=== PATIENT | female | born 1955 | race American Indian/Alaskan Native ===

== ENCOUNTER 2018-04-02 10:50 | Inpatient (IN) | payer MEDICARE ==
[2018-04-02] MEDS ORDERED: PROVENTIL IH ONE ×2 (10:58→11:56)
[2018-04-02] MEDS ORDERED: ATROVENT IH ONE (10:58)
[2018-04-02 11:35] LABS: Basophils % (Auto) 0.6 % (0.0-1.8); Eosinophils # (Auto) 0.2 K/mm3 (0.0-0.4); Eosinophils % (Auto) 3.6 % (0.0-4.3); Hematocrit 39.7 % (30.3-42.9); Hemoglobin 13.7 gm/dl (10.1-14.3); Lymphocytes # (Auto) 1.7 K/mm3 (1.2-5.4); Lymphocytes % (Auto) 24.9 % (13.4-35.0); Mean Corpuscular HGB Conc 35 % (30-34); Mean Corpuscular Volume 89 fl (79-97); Monocytes # (Auto) 0.8 K/mm3 (0.0-0.8); Monocytes % (Auto) 11.5 % (0.0-7.3); Platelet Count 196 K/mm3 (140-440); Red Blood Count 4.47 M/mm3 (3.65-5.03); Red Cell Distribution Width 14.5 % (13.2-15.2)
--- NOTE | 2018-04-02 11:37 | XRay Report ---
AP CHEST: HISTORY: Dyspnea The lungs are mildly hyperinflated. No evidence for pneumonia, pleural fluid or pneumothorax. Normal heart and mediastinal structures. Normal bony thorax. IMPRESSION: Hyperinflated lungs. Correlate for history of smoking. No acute process noted.
[2018-04-02 11:40] LABS: Creatine Kinase MB 3.1 ng/mL (0.0-4.0)
[2018-04-02 11:41] LABS: Alanine Aminotransferase 36 units/L (7-56); Albumin 3.7 g/dL (3.9-5); BUN/Creatinine Ratio 18; Blood Urea Nitrogen 11 mg/dL (7-17); Calcium 8.7 mg/dL (8.4-10.2); Hemolysis Index 11
[2018-04-02] MEDS ORDERED: K-DUR PO ONE (11:50)
[2018-04-02] MEDS ORDERED: TESSALON PERLES PO ONE (11:55)
[2018-04-02] MEDS ORDERED: NORCO 5/325 PO ONE (11:55)
[2018-04-02 11:56] LABS: INR 0.9 (0.87-1.13); Partial Thromboplastin Time 32.1 Sec. (24.2-36.6)
--- NOTE | 2018-04-02 12:05 | Emergency Department Report ---
ED Shortness of Breath HPI - General Chief Complaint: Dyspnea/Respdistress Stated Complaint: ROBERT Time Seen by Provider: 04/02/18 11:01 Source: patient, EMS, old records reviewed (no previous medical records available for review) Mode of arrival: Stretcher Limitations: No Limitations - History of Present Illness Initial Comments: 62-year-old female with a past medical history bronchitis, COPD with home oxygen use, asthma, and hepatitis B presents to the hospital with complaints of shortness of breath and wheezing 3 days. She complains of cough productive of yellow sputum and generalized body aches rated moderate to severe in intensity. She denies fever, calf tenderness, or leg edema. Patient takes home oxygen when necessary but states she has not had any oxygen in the last 2 days because she has been at her son's house. She also states she is trying to cut down on smoking which states multiple family members continue to smoke cigarettes around her. She received magnesium 2 g, Solu-Medrol 125 mg, and albuterol 5 mg in route to the hospital with minimal improvement. At time of my evaluation patient continued in our diffuse of albuterol 10 mg and Atrovent 1 mg and continues to have respiratory distress, chest muscle use, a can wheezing. BiPAP ordered. She denies a history of previous intubations. - Related Data Allergies Allergy/AdvReac Type Severity Reaction Status Date / Time aspirin Allergy Unknown Verified 04/02/18 10:58 tramadol Allergy Unknown Verified 04/02/18 10:58 ED Review of Systems ROS: Stated complaint: ROBERT Other details as noted in HPI Comment: All other systems reviewed and negative ED Past Medical Hx - Past Medical History Hx Liver Disease: Yes (Hep B) Hx Arthritis: Yes Hx Asthma: Yes Hx COPD: Yes - Social History Smoking Status: Current Some Day Smoker Substance Use Type: None ED Physical Exam - General Limitations: No Limitations - Other Other exam information: General: No limitations, patient is alert in no acute distress Head exam: Atraumatic, normocephalic Eyes exam: Normal appearance ENT: Moist mucous membrane, normal oropharynx Neck exam: Normal inspection, full range of motion, no meningismus nontender Respiratory exam: Bilateral wheezing, excessive muscle use, tachypnea Cardiovascular: Mild tachycardia, regular rhythm Abdomen: Soft, nondistended, and nontender, with normal bowel sounds, no rebound, or guarding Extremity: Full range of motion normal inspection no deformity, no calf tenderness or edema Back: Normal Inspection, full range of motion, no tenderness Neurologic: Alert, oriented x3, cranial nerves intact, no motor or sensory deficit Psychiatric: normal affect, normal mood Skin: Warm, dry, intact ED Course Vital Signs 04/02/18 11:01 Temperature 98.9 F Pulse Rate 102 H Respiratory 32 H Rate Blood Pressure 158/94 O2 Sat by Pulse 91 Oximetry - Reevaluation(s) Reevaluation #1: 04/02/18 11:57 Patient completed multiple doses of nebs, Solu-Medrol, echocardiogram prior to my evaluation. Still with respiratory distress, wheezing, tachypnea, and accessory muscle use. BiPAP at additional nebs ordered. ED Medical Decision Making - Lab Data Result diagrams: 04/02/18 11:10 04/02/18 11:10 Lab Results 04/02/18 04/02/18 04/02/18 Range/Units 11:10 11:10 11:10 WBC 6.9 (4.5-11.0) K/mm3 RBC 4.47 (3.65-5.03) M/mm3 Hgb 13.7 (10.1-14.3) gm/dl Hct 39.7 (30.3-42.9) % MCV 89 (79-97) fl MCH 31 (28-32) pg MCHC 35 H (30-34) % RDW 14.5 (13.2-15.2) % Plt Count 196 (140-440) K/mm3 Lymph % (Auto) 24.9 (13.4-35.0) % [place] % (Auto) 11.5 H (0.0-7.3) % Eos % (Auto) 3.6 (0.0-4.3) % Baso % (Auto) 0.6 (0.0-1.8) % Lymph # 1.7 (1.2-5.4) K/mm3 [place] # 0.8 (0.0-0.8) K/mm3 Eos # 0.2 (0.0-0.4) K/mm3 Baso # 0.0 (0.0-0.1) K/mm3 Seg Neutrophils % 59.4 (40.0-70.0) % Seg Neutrophils # 4.1 (1.8-7.7) K/mm3 PT 12.5 (12.2-14.9) Sec. INR 0.90 (0.87-1.13) APTT 32.1 (24.2-36.6) Sec. Sodium (137-145) mmol/L Potassium (3.6-5.0) mmol/L Chloride (98-107) mmol/L Carbon Dioxide (22-30) mmol/L Anion Gap mmol/L BUN (7-17) mg/dL Creatinine (0.7-1.2) mg/dL Estimated GFR ml/min BUN/Creatinine Ratio % Glucose (65-100) mg/dL Calcium (8.4-10.2) mg/dL Total Bilirubin (0.1-1.2) mg/dL AST (5-40) units/L ALT (7-56) units/L Alkaline Phosphatase (35-129) units/L Total Creatine Kinase 113 (30-135) units/L CK-MB (CK-2) 3.1 (0.0-4.0) ng/mL CK-MB (CK-2) Rel Index 2.7 (0-4) Troponin T < 0.010 (0.00-0.029) ng/mL Total Protein (6.3-8.2) g/dL Albumin (3.9-5) g/dL Albumin/Globulin Ratio % 04/02/18 Range/Units 11:10 WBC (4.5-11.0) K/mm3 RBC (3.65-5.03) M/mm3 Hgb (10.1-14.3) gm/dl Hct (30.3-42.9) % MCV (79-97) fl MCH (28-32) pg MCHC (30-34) % RDW (13.2-15.2) % Plt Count (140-440) K/mm3 Lymph % (Auto) (13.4-35.0) % [place] % (Auto) (0.0-7.3) % Eos % (Auto) (0.0-4.3) % Baso % (Auto) (0.0-1.8) % Lymph # (1.2-5.4) K/mm3 [place] # (0.0-0.8) K/mm3 Eos # (0.0-0.4) K/mm3 Baso # (0.0-0.1) K/mm3 Seg Neutrophils % (40.0-70.0) % Seg Neutrophils # (1.8-7.7) K/mm3 PT (12.2-14.9) Sec. INR (0.87-1.13) APTT (24.2-36.6) Sec. Sodium 141 (137-145) mmol/L Potassium 3.3 L (3.6-5.0) mmol/L Chloride 106.0 (98-107) mmol/L Carbon Dioxide 20 L (22-30) mmol/L Anion Gap 18 mmol/L BUN 11 (7-17) mg/dL Creatinine 0.6 L (0.7-1.2) mg/dL Estimated GFR > 60 ml/min BUN/Creatinine Ratio 18 % Glucose 132 H (65-100) mg/dL Calcium 8.7 (8.4-10.2) mg/dL Total Bilirubin 0.60 (0.1-1.2) mg/dL AST 48 H (5-40) units/L ALT 36 (7-56) units/L Alkaline Phosphatase 75 (35-129) units/L Total Creatine Kinase (30-135) units/L CK-MB (CK-2) (0.0-4.0) ng/mL CK-MB (CK-2) Rel Index (0-4) Troponin T (0.00-0.029) ng/mL Total Protein 7.2 (6.3-8.2) g/dL Albumin 3.7 L (3.9-5) g/dL Albumin/Globulin Ratio 1.1 % - EKG Data -: EKG Interpreted by Me (michi) EKG shows normal: sinus rhythm, axis (qrs 98), QRS complexes (qrsd -47), ST-T waves (no STEMI) - Radiology Data Radiology results: report reviewed AP CHEST: HISTORY: Dyspnea The lungs are mildly hyperinflated. No evidence for pneumonia, pleural fluid or pneumothorax. Normal heart and mediastinal structures. Normal bony thorax. IMPRESSION: Hyperinflated lungs. Correlate for history of smoking. No acute process noted. - Medical Decision Making Patient treated with albuterol, Atrovent, and BiPAP in the ED. [place] provided for pain. By mouth potassium for mild hypokalemia. Patient will be admitted to the Hospitalist service for further treatment. - Differential Diagnosis COPD, pneumonia, CHF, bronchitis Critical Care Time: No Critical care attestation.: If time is entered above; I have spent that time in minutes in the direct care of this critically ill patient, excluding procedure time. ED Disposition Clinical Impression: COPD with acute exacerbation, Hypoxia, On home O2, Hypokalemia Disposition: OP ADMIT IP TO THIS HOSP Is pt being admited?: Yes Condition: Stable Referrals: JERRY CORMIER DO [Primary Care Provider] - 3-5 Days Time of Disposition: 12:08 (Dr Moreland/hosp)
[2018-04-02] MEDS ORDERED: SODIUM CHLORIDE FLUSH SYRINGE 10 ML IV PRN (12:21)
[2018-04-02] MEDS ORDERED: TYLENOL PO PRN (12:21)
[2018-04-02] MEDS ORDERED: ZOFRAN IV PRN (12:21)
--- NOTE | 2018-04-02 12:21 | History and Physical Report ---
History of Present Illness Chief complaint: I cant breathe History of present illness: 62 YO Female with HBV, OA, Asthma, COPD, Nicotine Dependence presents to ED for evaluation. Pt states that she has experienced shortness of breath over the past 3 days with worsening symptoms over the same time frame. Pt acknowledges increased productive cough productive of yellow sputum, wheezing, increased use of nebulizer therapy without relief. EMS notified, and upon arrival the patient was found to have respiratory distress. Pt transported to [facility] for further care and evaluation. Pt seen and evaluated in ED and found to have COPD Exacerbation, complicated by Respiratory failure. Pt initiated on NIPPV. Pt admitted to IMCU and treated with IV antibiotic and IV steroid therapy. Pt denies fever, chills, CP, Palpitations, NVD, Trauma, Skin rash, or recent ill contacts. Past History Past Medical History: arthritis, COPD Past Surgical History: No surgical history Social history: Family history: hypertension Medications and Allergies Allergies Allergy/AdvReac Type Severity Reaction Status Date / Time aspirin Allergy Unknown Verified 04/02/18 10:58 tramadol Allergy Unknown Verified 04/02/18 10:58 Home Medications Medication Instructions Recorded Confirmed Last Taken Type Albuterol Sulfate [Ventolin HFA] 2 puff IH Q4H PRN 04/02/18 04/02/18 Unknown History Review of Systems Constitutional: no weight loss, no weight gain, no fever, no chills Ears, nose, mouth and throat: no ear pain, no ear discharge, no tinnitis, no decreased hearing, no nose pain Breasts: no change in shape, no swelling, no mass Cardiovascular: no chest pain, no orthopnea, no palpitations, no rapid/irregular heart beat, no edema Respiratory: cough, cough with sputum, excessive sputum, shortness of breath, congestion, no hemoptysis Gastrointestinal: no nausea, no vomiting, no diarrhea, no constipation, no change in bowel habits Genitourinary Female: no pelvic pain, no flank pain, no menorrhagia, no dysuria, no urinary frequency, no urgency, no stress incontinence Rectal: no pain, no incontinence, no bleeding Musculoskeletal: no neck stiffness, no neck pain, no shooting arm pain, no low back pain, no shooting leg pain, no leg numbness/tingling Integumentary: no rash, no pruritis, no redness, no sores, no wounds Neurological: no head injury, no transient paralysis, no paralysis, no weakness, no parathesias, no seizures Psychiatric: no anxiety, no change in sleep habits, no insomnia, no change in libido, no depression, no anhedonia, no difficulties concentrating Exam - Constitutional Vitals: Temp Pulse Resp BP Pulse Ox 98.9 F 102 H 32 H 158/94 91 04/02/18 11:01 04/02/18 11:01 04/02/18 11:01 04/02/18 11:04/02/18 11:01 General appearance: Present: mild distress - EENT Eyes: Present: PERRL ENT: hearing intact, clear oral mucosa - Neck Neck: Present: supple, normal ROM - Respiratory Respiratory effort: labored, accessory muscle use Respiratory: bilateral: diminished, rhonchi - Cardiovascular Heart Sounds: Present: S1 & S2. Absent: rub, click - Extremities Extremities: pulses symmetrical, No edema Peripheral Pulses: within normal limits - Abdominal General gastrointestinal: Present: soft, non-tender, non-distended, normal bowel sounds Female genitourinary: Present: normal - Integumentary Integumentary: Present: clear, warm, dry - Musculoskeletal Musculoskeletal: generalized weakness - Psychiatric Psychiatric: appropriate mood/affect, intact judgment & insight - Neurologic Neurologic: CNII-XII intact, moves all extremities Results - Labs CBC & Chem 7: 04/02/18 11:10 04/02/18 11:10 Labs: Abnormal lab results 04/02/18 04/02/18 Range/Units 11:10 11:10 MCHC 35 H (30-34) % [place] % (Auto) 11.5 H (0.0-7.3) % Potassium 3.3 L (3.6-5.0) mmol/L Carbon Dioxide 20 L (22-30) mmol/L Creatinine 0.6 L (0.7-1.2) mg/dL Glucose 132 H (65-100) mg/dL AST 48 H (5-40) units/L Albumin 3.7 L (3.9-5) g/dL Assessment and Plan - Patient Problems (1) Acute respiratory failure Current Visit: Yes Status: Acute Qualifiers: Respiratory failure complication: hypoxia Qualified Code(s): J96.01 - Acute respiratory failure with hypoxia Plan to address problem: Admit to IMCU, supplemental oxygen , nebulizer therapy, NIPPV as clinically indicated, chest x ray, pulse oximetry, (2) Nicotine dependence unspecified, with withdrawal Current Visit: Yes Status: Acute Qualifiers: Nicotine product type: cigarettes Qualified Code(s): F17.213 - Nicotine dependence, cigarettes, with withdrawal Plan to address problem: smoking cessation counseling, supportive care. (3) COPD with acute exacerbation Current Visit: Yes Status: Acute Plan to address problem: IV antibiotic therapy, IV steroid therapy, supplemental oxygen, nebulizer therapy, NIPPV as clinically indicated (4) DVT prophylaxis Current Visit: Yes Status: Acute Plan to address problem: SCD to BLE while in bed.
[2018-04-02] MEDS: ZITHROMAX 500 MG in NACL 0.9% 250ML 250 ML IV SCH (14:53)
[2018-04-02] MEDS: PERCOCET 5/325 PO PRN (16:33)
[2018-04-02] MEDS: PROVENTIL IH PRN (18:16)
[2018-04-02] MEDS ORDERED: APRESOLINE IV PRN (20:30)
[2018-04-02] MEDS: ATIVAN IV PRN (21:00)
[2018-04-02] MEDS: SODIUM CHLORIDE FLUSH SYRINGE 10 ML IV SCH (21:01)
[2018-04-02] MEDS: SOLU-Medrol IV SCH (21:01)
[2018-04-03] MEDS: PERCOCET 5/325 PO PRN ×3 (05:04→17:50)
[2018-04-03] MEDS: ATIVAN IV PRN (05:05)
[2018-04-03 05:07] LABS: BUN/Creatinine Ratio 20; Blood Urea Nitrogen 12 mg/dL (7-17); Calcium 9.1 mg/dL (8.4-10.2); Hemolysis Index 0
[2018-04-03] MEDS: SOLU-Medrol IV SCH ×2 (10:08→23:08)
[2018-04-03] MEDS: SODIUM CHLORIDE FLUSH SYRINGE 10 ML IV SCH ×2 (10:09→21:52)
[2018-04-03] MEDS: ZITHROMAX 500 MG in NACL 0.9% 250ML 250 ML IV SCH (10:17)
--- NOTE | 2018-04-03 12:29 | Progress Note ---
Assessment and Plan Assessment and plan: Acute hypoxemic respiratory failure. Continue O2 and BiPAP as clinically indicated. Acute COPD exacerbation. Continue systemic and inhaled steroids. Bronchodilators/nebulizer treatments. Tobacco abuse. Patient will be counseled on smoking cessation. DVT prophylaxis. History Interval history: 62 YO Female with HBV, OA, Asthma, COPD, Nicotine Dependence presents to ED for evaluation. Pt states that she has experienced shortness of breath over the past 3 days with worsening symptoms over the same time frame. Pt acknowledges increased productive cough productive of yellow sputum, wheezing, increased use of nebulizer therapy without relief. EMS notified, and upon arrival the patient was found to have respiratory distress. Pt transported to [facility] for further care and evaluation. Pt seen and evaluated in ED and found to have COPD Exacerbation, complicated by Respiratory failure. Pt initiated on NIPPV. Pt admitted to IMCU and treated with IV antibiotic and IV steroid therapy. Hospitalist Physical - Constitutional Vitals: Temp Pulse Resp BP Pulse Ox 98.4 F 87 33 H 131/98 98 04/03/18 04:00 04/03/18 08:35 04/03/18 08:35 04/03/18 08:35 04/03/18 09:02 General appearance: Present: mild distress - EENT Eyes: Present: PERRL, EOM intact ENT: hearing intact, clear oral mucosa, dentition normal - Neck Neck: Present: supple, normal ROM - Respiratory Respiratory effort: normal Respiratory: bilateral: diminished, wheezing - Cardiovascular Rhythm: regular Heart Sounds: Present: S1 & S2. Absent: gallop, rub - Extremities Extremities: no ischemia, No edema, Full ROM - Abdominal General gastrointestinal: soft, non-tender, non-distended, normal bowel sounds - Integumentary Integumentary: Present: clear, warm, dry - Neurologic Neurologic: CNII-XII intact, moves all extremities Results - Labs CBC & Chem 7: 04/02/18 11:10 04/03/18 04:30 Labs: Laboratory Last Values WBC 6.9 K/mm3 (4.5-11.0) 04/02/18 11:10 RBC 4.47 M/mm3 (3.65-5.03) 04/02/18 11:10 Hgb 13.7 gm/dl (10.1-14.3) 04/02/18 11:10 Hct 39.7 % (30.3-42.9) 04/02/18 11:10 MCV 89 fl (79-97) 04/02/18 11:10 MCH 31 pg (28-32) 04/02/18 11:10 MCHC 35 % (30-34) H 04/02/18 11:10 RDW 14.5 % (13.2-15.2) 04/02/18 11:10 Plt Count 196 K/mm3 (140-440) 04/02/18 11:10 Lymph % (Auto) 24.9 % (13.4-35.0) 04/02/18 11:10 [place] % (Auto) 11.5 % (0.0-7.3) H 04/02/18 11:10 Eos % (Auto) 3.6 % (0.0-4.3) 04/02/18 11:10 Baso % (Auto) 0.6 % (0.0-1.8) 04/02/18 11:10 Lymph # 1.7 K/mm3 (1.2-5.4) 04/02/18 11:10 [place] # 0.8 K/mm3 (0.0-0.8) 04/02/18 11:10 Eos # 0.2 K/mm3 (0.0-0.4) 04/02/18 11:10 Baso # 0.0 K/mm3 (0.0-0.1) 04/02/18 11:10 Seg Neutrophils % 59.4 % (40.0-70.0) 04/02/18 11:10 Seg Neutrophils # 4.1 K/mm3 (1.8-7.7) 04/02/18 11:10 PT 12.5 Sec. (12.2-14.9) 04/02/18 11:10 INR 0.90 (0.87-1.13) 04/02/18 11:10 APTT 32.1 Sec. (24.2-36.6) 04/02/18 11:10 POC ABG pH 7.352 (7.35-7.45) 04/02/18 14:20 POC ABG pCO2 38.1 (35-45) 04/02/18 14:20 POC ABG pO2 101 (80-105) 04/02/18 14:20 POC ABG HCO3 21.1 04/02/18 14:20 POC ABG Total CO2 22 04/02/18 14:20 POC ABG O2 Sat 98 04/02/18 14:20 POC ABG Base Excess -4 04/02/18 14:20 FiO2 40 % 04/02/18 14:20 Sodium 138 mmol/L (137-145) 04/03/18 04:30 Potassium 3.9 mmol/L (3.6-5.0) 04/03/18 04:30 Chloride 101.2 mmol/L (98-107) 04/03/18 04:30 Carbon Dioxide 23 mmol/L (22-30) 04/03/18 04:30 Anion Gap 18 mmol/L 04/03/18 04:30 BUN 12 mg/dL (7-17) 04/03/18 04:30 Creatinine 0.6 mg/dL (0.7-1.2) L 04/03/18 04:30 Estimated GFR > 60 ml/min 04/03/18 04:30 BUN/Creatinine Ratio 20 % 04/03/18 04:30 Glucose 136 mg/dL (65-100) H 04/03/18 04:30 Calcium 9.1 mg/dL (8.4-10.2) 04/03/18 04:30 Total Bilirubin 0.60 mg/dL (0.1-1.2) 04/02/18 11:10 AST 48 units/L (5-40) H 04/02/18 11:10 ALT 36 units/L (7-56) 04/02/18 11:10 Alkaline Phosphatase 75 units/L (35-129) 04/02/18 11:10 Total Creatine Kinase 113 units/L (30-135) 04/02/18 11:10 CK-MB (CK-2) 3.1 ng/mL (0.0-4.0) 04/02/18 11:10 CK-MB (CK-2) Rel Index 2.7 (0-4) 04/02/18 11:10 Troponin T < 0.010 ng/mL (0.00-0.029) 04/02/18 11:10 Total Protein 7.2 g/dL (6.3-8.2) 04/02/18 11:10 Albumin 3.7 g/dL (3.9-5) L 04/02/18 11:10 Albumin/Globulin Ratio 1.1 % 04/02/18 11:10
[2018-04-03] MEDS ORDERED: MORPHINE IV ONE (21:10)
[2018-04-04] MEDS: PERCOCET 5/325 PO PRN ×3 (06:26→20:56)
[2018-04-04] MEDS: PROVENTIL IH PRN ×3 (06:41→08:04)
[2018-04-04] MEDS: ROBITUSSIN PO PRN ×3 (07:52→20:55)
[2018-04-04] MEDS: SOLU-Medrol IV SCH ×2 (09:45→21:20)
[2018-04-04] MEDS: ZITHROMAX 500 MG in NACL 0.9% 250ML 250 ML IV SCH (09:45)
[2018-04-04] MEDS: SODIUM CHLORIDE FLUSH SYRINGE 10 ML IV SCH ×2 (09:47→21:20)
[2018-04-04] MEDS: ATIVAN IV PRN (10:13)
--- NOTE | 2018-04-04 10:55 | Progress Note ---
Assessment and Plan Assessment and plan: Acute hypoxemic respiratory failure. Continue O2 and BiPAP as clinically indicated. Serial CXR Acute COPD exacerbation. Continue systemic and inhaled steroids. Bronchodilators/nebulizer treatments. Tobacco abuse. Patient will be counseled on smoking cessation. DVT prophylaxis. History Interval history: 62 YO Female with HBV, OA, Asthma, COPD, Nicotine Dependence presents to ED for evaluation. Pt states that she has experienced shortness of breath over the past 3 days with worsening symptoms over the same time frame. Pt acknowledges increased productive cough productive of yellow sputum, wheezing, increased use of nebulizer therapy without relief. EMS notified, and upon arrival the patient was found to have respiratory distress. Pt transported to [facility] for further care and evaluation. Pt seen and evaluated in ED and found to have COPD Exacerbation, complicated by Respiratory failure. Pt initiated on NIPPV. Pt admitted to IM and treated with IV antibiotic and IV steroid therapy. Hospitalist Physical - Constitutional Vitals: Temp Pulse Resp BP Pulse Ox 98.4 F 108 H 26 H 131/97 96 04/03/18 16:00 04/04/18 08:11 04/04/18 08:11 04/03/18 16:00 04/04/18 08:49 General appearance: Present: no acute distress - EENT Eyes: Present: PERRL, EOM intact ENT: hearing intact, clear oral mucosa, dentition normal - Neck Neck: Present: supple, normal ROM - Respiratory Respiratory effort: normal Respiratory: bilateral: CTA - Cardiovascular Rhythm: regular Heart Sounds: Present: S1 & S2. Absent: gallop, rub - Extremities Extremities: no ischemia, No edema, Full ROM - Abdominal General gastrointestinal: soft, non-tender, non-distended, normal bowel sounds - Integumentary Integumentary: Present: clear, warm, dry - Neurologic Neurologic: CNII-XII intact, moves all extremities Results - Labs CBC & Chem 7: 04/02/18 11:10 04/03/18 04:30 Labs: Laboratory Last Values WBC 6.9 K/mm3 (4.5-11.0) 04/02/18 11:10 RBC 4.47 M/mm3 (3.65-5.03) 04/02/18 11:10 Hgb 13.7 gm/dl (10.1-14.3) 04/02/18 11:10 Hct 39.7 % (30.3-42.9) 04/02/18 11:10 MCV 89 fl (79-97) 04/02/18 11:10 MCH 31 pg (28-32) 04/02/18 11:10 MCHC 35 % (30-34) H 04/02/18 11:10 RDW 14.5 % (13.2-15.2) 04/02/18 11:10 Plt Count 196 K/mm3 (140-440) 04/02/18 11:10 Lymph % (Auto) 24.9 % (13.4-35.0) 04/02/18 11:10 [place] % (Auto) 11.5 % (0.0-7.3) H 04/02/18 11:10 Eos % (Auto) 3.6 % (0.0-4.3) 04/02/18 11:10 Baso % (Auto) 0.6 % (0.0-1.8) 04/02/18 11:10 Lymph # 1.7 K/mm3 (1.2-5.4) 04/02/18 11:10 [place] # 0.8 K/mm3 (0.0-0.8) 04/02/18 11:10 Eos # 0.2 K/mm3 (0.0-0.4) 04/02/18 11:10 Baso # 0.0 K/mm3 (0.0-0.1) 04/02/18 11:10 Seg Neutrophils % 59.4 % (40.0-70.0) 04/02/18 11:10 Seg Neutrophils # 4.1 K/mm3 (1.8-7.7) 04/02/18 11:10 PT 12.5 Sec. (12.2-14.9) 04/02/18 11:10 INR 0.90 (0.87-1.13) 04/02/18 11:10 APTT 32.1 Sec. (24.2-36.6) 04/02/18 11:10 POC ABG pH 7.352 (7.35-7.45) 04/02/18 14:20 POC ABG pCO2 38.1 (35-45) 04/02/18 14:20 POC ABG pO2 101 (80-105) 04/02/18 14:20 POC ABG HCO3 21.1 04/02/18 14:20 POC ABG Total CO2 22 04/02/18 14:20 POC ABG O2 Sat 98 04/02/18 14:20 POC ABG Base Excess -4 04/02/18 14:20 FiO2 40 % 04/02/18 14:20 Sodium 138 mmol/L (137-145) 04/03/18 04:30 Potassium 3.9 mmol/L (3.6-5.0) 04/03/18 04:30 Chloride 101.2 mmol/L (98-107) 04/03/18 04:30 Carbon Dioxide 23 mmol/L (22-30) 04/03/18 04:30 Anion Gap 18 mmol/L 04/03/18 04:30 BUN 12 mg/dL (7-17) 04/03/18 04:30 Creatinine 0.6 mg/dL (0.7-1.2) L 04/03/18 04:30 Estimated GFR > 60 ml/min 04/03/18 04:30 BUN/Creatinine Ratio 20 % 04/03/18 04:30 Glucose 136 mg/dL (65-100) H 04/03/18 04:30 Calcium 9.1 mg/dL (8.4-10.2) 04/03/18 04:30 Total Bilirubin 0.60 mg/dL (0.1-1.2) 04/02/18 11:10 AST 48 units/L (5-40) H 04/02/18 11:10 ALT 36 units/L (7-56) 04/02/18 11:10 Alkaline Phosphatase 75 units/L (35-129) 04/02/18 11:10 Total Creatine Kinase 113 units/L (30-135) 04/02/18 11:10 CK-MB (CK-2) 3.1 ng/mL (0.0-4.0) 04/02/18 11:10 CK-MB (CK-2) Rel Index 2.7 (0-4) 04/02/18 11:10 Troponin T < 0.010 ng/mL (0.00-0.029) 04/02/18 11:10 Total Protein 7.2 g/dL (6.3-8.2) 04/02/18 11:10 Albumin 3.7 g/dL (3.9-5) L 04/02/18 11:10 Albumin/Globulin Ratio 1.1 % 04/02/18 11:10
[2018-04-05] MEDS: PROVENTIL IH PRN (03:21)
[2018-04-05] MEDS: ROBITUSSIN PO PRN ×4 (03:22→22:38)
[2018-04-05] MEDS: ATIVAN IV PRN ×2 (03:27→22:38)
[2018-04-05] MEDS: PERCOCET 5/325 PO PRN ×3 (07:50→22:37)
--- NOTE | 2018-04-05 09:26 | XRay Report ---
FINAL REPORT EXAM: XR CHEST ROUTINE 2V HISTORY: resp failure TECHNIQUE: PA and lateral chest radiographs PRIORS: None. FINDINGS: No mediastinal shift. Cardiac silhouette is not enlarged. Hyperaeration of the lungs and flattening o f the hemidiaphragms. No pneumothorax, effusion, or focal pulmonary opacity. No acute skeletal findin g. IMPRESSION: Suggested sequela of COPD without pneumothorax or other superimposed acute pulmonary abnormality.
[2018-04-05] MEDS: ZITHROMAX PO SCH (10:14)
[2018-04-05] MEDS: SODIUM CHLORIDE FLUSH SYRINGE 10 ML IV SCH ×2 (10:14→22:38)
[2018-04-05] MEDS: SOLU-Medrol IV SCH ×2 (10:14→22:38)
--- NOTE | 2018-04-05 11:21 | Progress Note ---
Assessment and Plan Assessment and plan: Acute hypoxemic respiratory failure. Continue O2 and BiPAP as clinically indicated. Acute COPD exacerbation. Continue systemic and inhaled steroids. Bronchodilators/nebulizer treatments. Tobacco abuse. Patient will be counseled on smoking cessation. Cough. Mucinex. DVT prophylaxis. History Interval history: 62 YO Female with HBV, OA, Asthma, COPD, Nicotine Dependence presents to ED for evaluation. Pt states that she has experienced shortness of breath over the past 3 days with worsening symptoms over the same time frame. Pt acknowledges increased productive cough productive of yellow sputum, wheezing, increased use of nebulizer therapy without relief. EMS notified, and upon arrival the patient was found to have respiratory distress. Pt transported to [facility] for further care and evaluation. Pt seen and evaluated in ED and found to have COPD Exacerbation, complicated by Respiratory failure. Pt initiated on NIPPV. Pt admitted to IMCU and treated with IV antibiotic and IV steroid therapy. Patient complaining of cough this morning. Hospitalist Physical - Constitutional Vitals: Temp Pulse Resp BP Pulse Ox 97.7 F 74 20 144/89 100 04/05/18 06:00 04/05/18 06:00 04/05/18 06:00 04/05/18 06:00 04/05/18 09:54 General appearance: Present: no acute distress - EENT Eyes: Present: PERRL, EOM intact ENT: hearing intact, clear oral mucosa, dentition normal - Neck Neck: Present: supple, normal ROM - Respiratory Respiratory effort: normal Respiratory: bilateral: CTA - Cardiovascular Rhythm: regular Heart Sounds: Present: S1 & S2. Absent: gallop, rub - Extremities Extremities: no ischemia, No edema, Full ROM - Abdominal General gastrointestinal: soft, non-tender, non-distended, normal bowel sounds - Integumentary Integumentary: Present: clear, warm, dry - Neurologic Neurologic: CNII-XII intact, moves all extremities Results - Labs CBC & Chem 7: 04/02/18 11:10 04/03/18 04:30 Labs: Laboratory Last Values WBC 6.9 K/mm3 (4.5-11.0) 04/02/18 11:10 RBC 4.47 M/mm3 (3.65-5.03) 04/02/18 11:10 Hgb 13.7 gm/dl (10.1-14.3) 04/02/18 11:10 Hct 39.7 % (30.3-42.9) 04/02/18 11:10 MCV 89 fl (79-97) 04/02/18 11:10 MCH 31 pg (28-32) 04/02/18 11:10 MCHC 35 % (30-34) H 04/02/18 11:10 RDW 14.5 % (13.2-15.2) 04/02/18 11:10 Plt Count 196 K/mm3 (140-440) 04/02/18 11:10 Lymph % (Auto) 24.9 % (13.4-35.0) 04/02/18 11:10 [place] % (Auto) 11.5 % (0.0-7.3) H 04/02/18 11:10 Eos % (Auto) 3.6 % (0.0-4.3) 04/02/18 11:10 Baso % (Auto) 0.6 % (0.0-1.8) 04/02/18 11:10 Lymph # 1.7 K/mm3 (1.2-5.4) 04/02/18 11:10 [place] # 0.8 K/mm3 (0.0-0.8) 04/02/18 11:10 Eos # 0.2 K/mm3 (0.0-0.4) 04/02/18 11:10 Baso # 0.0 K/mm3 (0.0-0.1) 04/02/18 11:10 Seg Neutrophils % 59.4 % (40.0-70.0) 04/02/18 11:10 Seg Neutrophils # 4.1 K/mm3 (1.8-7.7) 04/02/18 11:10 PT 12.5 Sec. (12.2-14.9) 04/02/18 11:10 INR 0.90 (0.87-1.13) 04/02/18 11:10 APTT 32.1 Sec. (24.2-36.6) 04/02/18 11:10 POC ABG pH 7.352 (7.35-7.45) 04/02/18 14:20 POC ABG pCO2 38.1 (35-45) 04/02/18 14:20 POC ABG pO2 101 (80-105) 04/02/18 14:20 POC ABG HCO3 21.1 04/02/18 14:20 POC ABG Total CO2 22 04/02/18 14:20 POC ABG O2 Sat 98 04/02/18 14:20 POC ABG Base Excess -4 04/02/18 14:20 FiO2 40 % 04/02/18 14:20 Sodium 138 mmol/L (137-145) 04/03/18 04:30 Potassium 3.9 mmol/L (3.6-5.0) 04/03/18 04:30 Chloride 101.2 mmol/L (98-107) 04/03/18 04:30 Carbon Dioxide 23 mmol/L (22-30) 04/03/18 04:30 Anion Gap 18 mmol/L 04/03/18 04:30 BUN 12 mg/dL (7-17) 04/03/18 04:30 Creatinine 0.6 mg/dL (0.7-1.2) L 04/03/18 04:30 Estimated GFR > 60 ml/min 04/03/18 04:30 BUN/Creatinine Ratio 20 % 04/03/18 04:30 Glucose 136 mg/dL (65-100) H 04/03/18 04:30 Calcium 9.1 mg/dL (8.4-10.2) 04/03/18 04:30 Total Bilirubin 0.60 mg/dL (0.1-1.2) 04/02/18 11:10 AST 48 units/L (5-40) H 04/02/18 11:10 ALT 36 units/L (7-56) 04/02/18 11:10 Alkaline Phosphatase 75 units/L (35-129) 04/02/18 11:10 Total Creatine Kinase 113 units/L (30-135) 04/02/18 11:10 CK-MB (CK-2) 3.1 ng/mL (0.0-4.0) 04/02/18 11:10 CK-MB (CK-2) Rel Index 2.7 (0-4) 04/02/18 11:10 Troponin T < 0.010 ng/mL (0.00-0.029) 04/02/18 11:10 Total Protein 7.2 g/dL (6.3-8.2) 04/02/18 11:10 Albumin 3.7 g/dL (3.9-5) L 04/02/18 11:10 Albumin/Globulin Ratio 1.1 % 04/02/18 11:10
[2018-04-06] MEDS: PERCOCET 5/325 PO PRN ×2 (05:26→12:08)
[2018-04-06] MEDS: ROBITUSSIN PO PRN (05:26)
[2018-04-06] MEDS: ATIVAN IV PRN (05:30)
--- NOTE | 2018-04-06 09:16 | Progress Note ---
Assessment and Plan Assessment and plan: Acute hypoxemic respiratory failure. Continue O2 and BiPAP as clinically indicated. Acute COPD exacerbation. Continue systemic and inhaled steroids. Bronchodilators/nebulizer treatments. Tobacco abuse. Patient will be counseled on smoking cessation. Cough. Mucinex. Insomnia. Ambien for sleep DVT prophylaxis. Disposition. Anticipate discharge in a.m. History Interval history: 62 YO Female with HBV, OA, Asthma, COPD, Nicotine Dependence presents to ED for evaluation. Pt states that she has experienced shortness of breath over the past 3 days with worsening symptoms over the same time frame. Pt acknowledges increased productive cough productive of yellow sputum, wheezing, increased use of nebulizer therapy without relief. EMS notified, and upon arrival the patient was found to have respiratory distress. Pt transported to [facility] for further care and evaluation. Pt seen and evaluated in ED and found to have COPD Exacerbation, complicated by Respiratory failure. Pt initiated on NIPPV. Pt admitted and treated with IV antibiotic and IV steroid therapy. Hospitalist Physical - Constitutional Vitals: Temp Pulse Resp BP Pulse Ox 98.0 F 89 20 137/86 97 04/06/18 05:36 04/06/18 05:36 04/06/18 05:36 04/06/18 05:36 04/06/18 05:36 General appearance: Present: no acute distress - EENT Eyes: Present: PERRL, EOM intact ENT: hearing intact, clear oral mucosa, dentition normal - Neck Neck: Present: supple, normal ROM - Respiratory Respiratory effort: normal Respiratory: left: wheezing (moderate), bilateral: diminished - Cardiovascular Rhythm: regular Heart Sounds: Present: S1 & S2. Absent: gallop, rub - Extremities Extremities: no ischemia, No edema, Full ROM - Abdominal General gastrointestinal: soft, non-tender, non-distended, normal bowel sounds - Integumentary Integumentary: Present: clear, warm, dry - Neurologic Neurologic: CNII-XII intact, moves all extremities Results - Labs CBC & Chem 7: 04/02/18 11:10 04/03/18 04:30 Labs: Laboratory Last Values WBC 6.9 K/mm3 (4.5-11.0) 04/02/18 11:10 RBC 4.47 M/mm3 (3.65-5.03) 04/02/18 11:10 Hgb 13.7 gm/dl (10.1-14.3) 04/02/18 11:10 Hct 39.7 % (30.3-42.9) 04/02/18 11:10 MCV 89 fl (79-97) 04/02/18 11:10 MCH 31 pg (28-32) 04/02/18 11:10 MCHC 35 % (30-34) H 04/02/18 11:10 RDW 14.5 % (13.2-15.2) 04/02/18 11:10 Plt Count 196 K/mm3 (140-440) 04/02/18 11:10 Lymph % (Auto) 24.9 % (13.4-35.0) 04/02/18 11:10 [place] % (Auto) 11.5 % (0.0-7.3) H 04/02/18 11:10 Eos % (Auto) 3.6 % (0.0-4.3) 04/02/18 11:10 Baso % (Auto) 0.6 % (0.0-1.8) 04/02/18 11:10 Lymph # 1.7 K/mm3 (1.2-5.4) 04/02/18 11:10 [place] # 0.8 K/mm3 (0.0-0.8) 04/02/18 11:10 Eos # 0.2 K/mm3 (0.0-0.4) 04/02/18 11:10 Baso # 0.0 K/mm3 (0.0-0.1) 04/02/18 11:10 Seg Neutrophils % 59.4 % (40.0-70.0) 04/02/18 11:10 Seg Neutrophils # 4.1 K/mm3 (1.8-7.7) 04/02/18 11:10 PT 12.5 Sec. (12.2-14.9) 04/02/18 11:10 INR 0.90 (0.87-1.13) 04/02/18 11:10 APTT 32.1 Sec. (24.2-36.6) 04/02/18 11:10 POC ABG pH 7.352 (7.35-7.45) 04/02/18 14:20 POC ABG pCO2 38.1 (35-45) 04/02/18 14:20 POC ABG pO2 101 (80-105) 04/02/18 14:20 POC ABG HCO3 21.1 04/02/18 14:20 POC ABG Total CO2 22 04/02/18 14:20 POC ABG O2 Sat 98 04/02/18 14:20 POC ABG Base Excess -4 04/02/18 14:20 FiO2 40 % 04/02/18 14:20 Sodium 138 mmol/L (137-145) 04/03/18 04:30 Potassium 3.9 mmol/L (3.6-5.0) 04/03/18 04:30 Chloride 101.2 mmol/L (98-107) 04/03/18 04:30 Carbon Dioxide 23 mmol/L (22-30) 04/03/18 04:30 Anion Gap 18 mmol/L 04/03/18 04:30 BUN 12 mg/dL (7-17) 04/03/18 04:30 Creatinine 0.6 mg/dL (0.7-1.2) L 04/03/18 04:30 Estimated GFR > 60 ml/min 04/03/18 04:30 BUN/Creatinine Ratio 20 % 04/03/18 04:30 Glucose 136 mg/dL (65-100) H 04/03/18 04:30 Calcium 9.1 mg/dL (8.4-10.2) 04/03/18 04:30 Total Bilirubin 0.60 mg/dL (0.1-1.2) 04/02/18 11:10 AST 48 units/L (5-40) H 04/02/18 11:10 ALT 36 units/L (7-56) 04/02/18 11:10 Alkaline Phosphatase 75 units/L (35-129) 04/02/18 11:10 Total Creatine Kinase 113 units/L (30-135) 04/02/18 11:10 CK-MB (CK-2) 3.1 ng/mL (0.0-4.0) 04/02/18 11:10 CK-MB (CK-2) Rel Index 2.7 (0-4) 04/02/18 11:10 Troponin T < 0.010 ng/mL (0.00-0.029) 04/02/18 11:10 Total Protein 7.2 g/dL (6.3-8.2) 04/02/18 11:10 Albumin 3.7 g/dL (3.9-5) L 04/02/18 11:10 Albumin/Globulin Ratio 1.1 % 04/02/18 11:10
[2018-04-06] MEDS: ZITHROMAX PO SCH (10:41)
[2018-04-06] MEDS: SOLU-Medrol IV SCH (10:41)
[2018-04-06] MEDS: SODIUM CHLORIDE FLUSH SYRINGE 10 ML IV SCH (10:42)
[2018-04-06 12:41] VITALS: BP 161/93
[2018-04-06] MEDS ORDERED: AMBIEN PO PRN (22:00)
--- NOTE | 2018-04-14 10:38 | Discharge Summary ---
Providers - Providers Date of Admission: 04/02/18 12:21 Date of discharge: 04/06/18 Attending physician: NAHEED RODRIGUEZ 04/05/18 10:23 Physical Therapy Evaluation and Treat [CONS] Routine Comment: Reason For Exam: deconditioning Primary care physician: JERRY CORMIER Hospitalization Reason for admission: acute respiratory failure, COPD exacerbation Condition: Stable Hospital course: 62 YO Female with HBV, OA, Asthma, COPD, Nicotine Dependence presented to ED for evaluation of shortness of breath over the past 3 days with worsening symptoms over the same time frame prior to admission. Pt acknowledged increased productive cough productive of yellow sputum, wheezing, increased use of nebulizer therapy without relief. EMS notified, and upon arrival the patient was found to have respiratory distress. Pt transported to [facility] for further care and evaluation. Pt seen and evaluated in ED and found to have COPD Exacerbation, complicated by Respiratory failure. Pt initiated on NIPPV. Pt admitted to IMCU and treated with IV antibiotic and IV steroid therapy. The patient has slow but significant improvement throughout hospitalization. The patient was weaned off BiPAP but continued to require oxygen. Unfortunately, while the patient was still receiving inpatient care, patient signed out AMA because she needed to "go home to take care of some business." Risks were explained to the patient and she verbalized understanding. Dedicated discharge time 32 minutes. Disposition: DC-07 LEFT AGAINST MED ADVICE Core Measure Documentation - Palliative Care Palliative Care/ Comfort Measures: Not Applicable - Core Measures Any of the following diagnoses?: none Exam - Constitutional Vitals: Temp Pulse Resp BP Pulse Ox 97.3 F L 90 18 161/93 97 04/06/18 12:27 04/06/18 12:27 04/06/18 12:27 04/06/18 12:27 04/06/18 12:27 Plan Follow up with: JERRY CORMIER DO [Primary Care Provider] - 3-5 Days
== END 2018-04-06 13:00 | disposition left against medical advice (07) | DRG 189 ==
LOC: ED 10:50 → 3A 12:21 → CC1 14:05 → IMCU 15:10 → 3A 04-03 17:08
PROVIDERS: ADMIT Internal Medicine; ATTEND Hospitalist
PROC: 5A09357 Assistance with Respiratory Ventilation, Less than 24 Consecutive Hours, Continuous Positive Airway Pressure (ICD-10-PCS; principal; 2018-04-02)
PROC: 5A09357 Assistance with Respiratory Ventilation, Less than 24 Consecutive Hours, Continuous Positive Airway Pressure (ICD-10-PCS; 2018-04-04)
PROC: 5A09357 Assistance with Respiratory Ventilation, Less than 24 Consecutive Hours, Continuous Positive Airway Pressure (ICD-10-PCS; 2018-04-05)
DX: J96.01 Acute respiratory failure with hypoxia (principal); J44.1 Chronic obstructive pulmonary disease with (acute) exacerbation; F17.213 Nicotine dependence, cigarettes, with withdrawal; M19.90 Unspecified osteoarthritis, unspecified site; Z53.21 Procedure and treatment not carried out due to patient leaving prior to being seen by health care provider; G47.00 Insomnia, unspecified; E87.6 Hypokalemia; J45.909 Unspecified asthma, uncomplicated; Z82.49 Family history of ischemic heart disease and other diseases of the circulatory system; Z88.2 Allergy status to sulfonamides; Z88.6 Allergy status to analgesic agent; Z79.51 Long term (current) use of inhaled steroids; Z99.81 Dependence on supplemental oxygen; Z71.6 Tobacco abuse counseling
CPT/HCPCS: 36415; 71045; 71046; 80048; 80053; 82550; 82553; 82803; 84484; 85025; 85610; 85730; 87040; 93005; 93010; 94640; 94660; 94760; G0378; J0360; J0456; J2060; J2270; J2920; J7050

== ENCOUNTER 2018-08-24 11:52 | Emergency (ER) | payer MEDICARE ==
--- NOTE | 2018-08-24 12:07 | Emergency Department Report ---
Blank Doc - Documentation Documentation: This is a 62-year-old female that presents with headache. Denies any injuries. This initial assessment/diagnostic orders/clinical plan/treatment(s) is/are subject to change based on patient's health status, clinical progression and re- assessment by fellow clinical providers in the ED. Further treatment and workup at subsequent clinical providers discretion. Patient/guardians urged not to elope from the ED as their condition may be serious if not clinically assessed and managed. Initial orders include: 1- Patient sent to [facility] for further evaluation and treatment 2- CT head 3- labs
[2018-08-24 12:09] VITALS: BP 151/97
[2018-08-24 13:25] LABS: Eosinophils # (Auto) 0.3 K/mm3 (0.0-0.4); Eosinophils % (Auto) 6.1 % (0.0-4.3); Hematocrit 45.6 % (30.3-42.9); Hemoglobin 15.7 gm/dl (10.1-14.3); Lymphocytes # (Auto) 1.9 K/mm3 (1.2-5.4); Lymphocytes % (Auto) 40.7 % (13.4-35.0); Mean Corpuscular HGB Conc 35 % (30-34); Mean Corpuscular Volume 92 fl (79-97); Monocytes # (Auto) 0.4 K/mm3 (0.0-0.8); Platelet Count 174 K/mm3 (140-440); Red Blood Count 4.96 M/mm3 (3.65-5.03); Red Cell Distribution Width 14.1 % (13.2-15.2)
[2018-08-24 13:42] LABS: BUN/Creatinine Ratio 17; Blood Urea Nitrogen 12 mg/dL (7-17); Hemolysis Index 75
--- NOTE | 2018-08-24 14:01 | Cat Scan Report ---
CT HEAD WITHOUT CONTRAST: HISTORY: Headache. TECHNIQUE: Sequential 2.5mm CT images. COMPARISON: none. FINDINGS: There is a large CSF density cyst in the right occipital region measuring up to 6.6 x 2.7 cm in axial plane. This cyst appears to communicate with the occipital horn of the right lateral ventricle. Ventricular size is within normal limits otherwise. There is mild mass effect on the adjacent brain parenchyma in the right parietal and occipital lobes. There is normal brain density. No evidence for hemorrhage, mass or large area of ischemia. Basal ganglia calcifications are noted. The posterior fossa contents are unremarkable. The calvarium, sinuses and mastoid air cells are within normal limits. Chronic right medial orbital wall fracture is noted. IMPRESSION: There is a large CSF density cyst in the right parieto-occipital region which appears to communicate with the right lateral ventricle and exerts mild mass effect on adjacent brain parenchyma. 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 Other ventricular cysts are not excluded. Consider neurology consult and further evaluation with MRI with and without contrast.
[2018-08-24] MEDS ORDERED: TYLENOL PO ONE (16:49)
--- NOTE | 2018-08-24 16:49 | Emergency Department Report ---
ED Headache HPI - General Chief Complaint: Headache Stated Complaint: HEADACHE/NECK PAIN Time Seen by Provider: 08/24/18 12:05 - History of Present Illness Initial Comments: 62-year-old -[place] female presents to the emergency room for complaint of headache 1 month has intermittent that's gotten worse in the last week. Patient has taken nothing for pain. Patient reports that she feels slight worries trickling down her right side of her head into her neck. Patient reports that at times she tries to turn her neck to the right it does not go all the way for a second or 2. She denies any fever chills no nausea no vomiting no blurred vision no dizziness no syncopal moments. She denies any new weaknesses. Patient does report that she had a cyst removed in her brain at [facility] last year. 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 Quality: sharp, throbbing Head Injury Location: parietal (right) Recent Head Trauma: frequent headaches Associated Symptoms: denies symptoms Allergies/Adverse Reactions: Allergies aspirin Allergy (Verified 04/02/18 10:58) Unknown tramadol Allergy (Verified 04/02/18 10:58) Unknown iv dye Allergy (Uncoded 08/24/18 12:04) Hives Home Medications: Ambulatory Orders Albuterol Sulfate [Ventolin HFA] 2 puff IH Q4H PRN 04/02/18 Acetaminophen [Acetaminophen TAB] 650 mg PO Q6HR PRN #30 tablet 08/24/18 ED Review of Systems ROS: Stated complaint: HEADACHE/NECK PAIN Other details as noted in HPI Comment: All other systems reviewed and negative Constitutional: denies: chills, fever Gastrointestinal: denies: abdominal pain, nausea, vomiting, diarrhea Neurological: headache. denies: weakness, numbness, paresthesias, confusion, abnormal gait, vertigo ED Past Medical Hx - Past Medical History Previous Medical History?: Yes Hx Congestive Heart Failure: No Hx Diabetes: No Hx Liver Disease: Yes (Hep B) Hx Arthritis: Yes Hx Asthma: Yes Hx COPD: Yes - Surgical History Past Surgical History?: Yes Additional Surgical History: Tumor removal 2011 - Social History Smoking Status: Current Every Day Smoker Substance Use Type: None - Medications Home Medications: Home Medications Medication Instructions Recorded Confirmed Last Taken Type Albuterol Sulfate [Ventolin HFA] 2 puff IH Q4H PRN 04/02/18 04/02/18 Unknown History Acetaminophen [Acetaminophen TAB] 650 mg PO Q6HR PRN #30 tablet 08/24/18 Unknown Rx ED Physical Exam - General Limitations: No Limitations General appearance: alert, in no apparent distress - Head Head exam: Present: atraumatic, normocephalic - Eye Eye exam: Present: normal appearance - ENT ENT exam: Present: mucous membranes moist - Expanded Neurological Exam Expanded Cranial nerves: EOM's Intact: Normal, Gag Reflex: Normal, Tongue Deviation: Normal, Nystagmus: Normal, Facial Sensation: Normal, Facial Palsy with Forehead Movement: Normal, Facial Palsy without Forehead Movement: Normal Cerebellar function: Finger to Nose: Normal, Heel to [place]: Normal, Romberg: Normal Upper motor neuron: Christiano Neglect: Normal, Pronator Drift: Normal, Babinski Sign: Normal, Sensory Extinction: Normal Sensory exam: Upper Extremity Light Touch: Normal, Upper Extremity Pin Prick: Normal, Upper Extremity Temperature: Normal, UE 2 Point Discrimination: Normal, Lower Extremity Light Touch: Normal, Lower Extremity Pin Prick: Normal, Lower Extremity Temperature: Normal, LE 2 Point Discrimination: Normal Motor strength exam: RUE: 5, LUE: 5, RLE: 5, LLE: 5 Best Eye Response (Micaela): (4) open spontaneously Best Motor Response (Micaela): (6) obeys commands Best Verbal Response (Micaela): (5) oriented Micaela Total: 15 - Psychiatric Psychiatric exam: Present: normal affect, normal mood - Skin Skin exam: Present: warm, dry, intact, normal color. Absent: rash ED Course Vital Signs 08/24/18 12:06 Temperature 97.9 F Pulse Rate 95 H Respiratory 18 Rate Blood Pressure 151/97 O2 Sat by Pulse 98 Oximetry ED Medical Decision Making - Lab Data Result diagrams: 08/24/18 13:10 08/24/18 13:10 - Radiology Data Radiology results: report reviewed Patient: MIRNA BERRY MR#: [id number] : 1955 Acct:[id number] Age/Sex: 62 / F ADM Date: 08/24/18 Loc: ED Attending Dr: Ordering Physician: LANDY GARRISON NP Date of Service: 08/24/18 Procedure(s): CT head/brain wo con Accession Number(s): [id number] cc: LANDY GARRISON NP CT HEAD WITHOUT CONTRAST: HISTORY: Headache. TECHNIQUE: Sequential 2.5mm CT images. COMPARISON: none. FINDINGS: There is a large CSF density cyst in the right occipital region measuring up to 6.6 x 2.7 cm in axial plane. This cyst appears to communicate with the occipital horn of the right lateral ventricle. Ventricular size is within normal limits otherwise. There is mild mass effect on the adjacent brain parenchyma in the right parietal and occipital lobes. There is normal brain density. No evidence for hemorrhage, mass or large area of ischemia. Basal ganglia calcifications are noted. The posterior fossa contents are unremarkable. The calvarium, sinuses and mastoid air cells are within normal limits. Chronic right medial orbital wall fracture is noted. IMPRESSION: There is a large CSF density cyst in the right parieto-occipital region which appears to communicate with the right lateral ventricle and exerts mild mass effect on adjacent brain parenchyma. 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 Other ventricular cysts are not excluded. Consider neurology consult and further evaluation with MRI with and without contrast. Transcribed By: TTR Dictated By: JOANA AMIN JR, MD Electronically Authenticated By: JOANA AMIN JR, MD Signed Date/Time: 08/24/18 135 DD/ 1352 TD/TT: 08/24/18 1355 - Medical Decision Making 62-year-old female comes in for 1 month of intermittent headaches as gotten worse in the last weeks. CT scan was ordered and shows the patient has a large cyst on the right parietal. Spoke to Dr. Daisy Linda at [facility] she recommends patient to give her office a call at [phone] in the morning to make an appointment and to ask for Dr. Daisy Linda. Patient CT scan will be copied on this and instructions for patient to take to her appointment. Patient will be discharged with Tylenol 650 mg 3 times a day for pain Critical care attestation.: If time is entered above; I have spent that time in minutes in the direct care of this critically ill patient, excluding procedure time. ED Disposition Clinical Impression: Cyst of brain Disposition: DC-01 TO HOME OR SELFCARE Is pt being admited?: No Does the pt Need Aspirin: No Condition: Stable Instructions: Acute Headache (ED) Additional Instructions: You can take Tylenol for pain management. Follow up with Dr. Daisy Linda she is expecting a phone call tomorrow her number is [phone]. Prescriptions: Acetaminophen [Acetaminophen TAB] 650 mg PO Q6HR PRN #30 tablet PRN Reason: Pain , Severe (7-10) Referrals: BONITA KILPATRICK MD [Primary Care Provider] - 3-5 Days Daisy Hair [Other] - 3-5 Days
== END 2018-08-24 17:44 | disposition home or self-care (01) ==
LOC: ED 11:52
DX: G93.0 Cerebral cysts (principal); J44.9 Chronic obstructive pulmonary disease, unspecified; M19.90 Unspecified osteoarthritis, unspecified site; Z86.19 Personal history of other infectious and parasitic diseases; F17.200 Nicotine dependence, unspecified, uncomplicated; Z88.6 Allergy status to analgesic agent; Z88.5 Allergy status to narcotic agent; Z91.041 Radiographic dye allergy status
CPT/HCPCS: 36415; 70450; 80048; 85025; 99284

== ENCOUNTER 2019-03-30 16:19 | Inpatient (IN) | payer MEDICARE ==
[2019-03-30] MEDS ORDERED: SODIUM CHLORIDE 0.9% 1000 ML IV SOLN IV ONE (17:06)
[2019-03-30] MEDS ORDERED: methylPREDNISolone Sod Succinate 125 MG/2 ML INJ IV ONE (17:07)
[2019-03-30] MEDS ORDERED: ALBUTEROL 2.5 MG/3 ML NEBU IH ONE (17:07)
[2019-03-30] MEDS ORDERED: ONDANSETRON 4 MG/2 ML INJ IV ONE (17:07)
[2019-03-30] MEDS ORDERED: MORPHINE 4 MG/1 ML INJ IV ONE ×2 (17:07→18:25)
[2019-03-30] MEDS ORDERED: IPRATROPIUM 0.02% NEBU 2.5 ML IH ONE (17:07)
--- NOTE | 2019-03-30 17:22 | XRay Report ---
CHEST 1 VIEW 03/30/2019 5:02 PM INDICATION / CLINICAL INFORMATION: Chest Pain. COMPARISON: 2 views of the chest from 04/05/2018. FINDINGS: SUPPORT DEVICES: None. HEART / MEDIASTINUM: No significant abnormality. LUNGS / PLEURA: No significant pulmonary or pleural abnormality. No pneumothorax. ADDITIONAL FINDINGS: No significant additional findings. IMPRESSION: 1. No acute abnormality of the chest. Signer Name: Mesfin Medina MD Signed: 03/30/2019 5:17 PM Workstation Name: [id number]
--- NOTE | 2019-03-30 17:41 | Emergency Department Report ---
ED Shortness of Breath HPI - General Chief Complaint: Chest Pain Stated Complaint: ROBERT Time Seen by Provider: 03/30/19 17:03 Source: patient, EMS Mode of arrival: Stretcher Limitations: No Limitations - History of Present Illness Initial Comments: Patient is a 63-year-old female who is presenting with respiratory distress and chest pain. Patient states she's had a cough for the past 3-4 days which is wet sounding but she's been unable to cough up any phlegm. Patient also states she's had fevers which is subjective chills. Patient states the pain in the chest soreness is 8 out of 10 in severity. Patient does have a history of asthma/COPD the patient states that her symptoms are worse today than she normally has with him exacerbation. She denies nausea vomiting or diarrhea at this time. - Related Data Home Medications Medication Instructions Recorded Confirmed Last Taken Albuterol Sulfate [Ventolin HFA] 2 puff IH Q4H PRN 04/02/18 04/02/18 Unknown Previous Rx's Medication Instructions Recorded Last Taken Type Acetaminophen [Acetaminophen TAB] 650 mg PO Q6HR PRN #30 tablet 08/24/18 Unknown Rx Allergies Allergy/AdvReac Type Severity Reaction Status Date / Time aspirin Allergy Unknown Verified 03/30/19 16:55 tramadol Allergy Unknown Verified 03/30/19 16:55 iv dye Allergy Hives Uncoded 03/30/19 16:55 ED Review of Systems ROS: Stated complaint: ROBERT Other details as noted in HPI Comment: All other systems reviewed and negative ED Past Medical Hx - Past Medical History Previous Medical History?: Yes Hx Congestive Heart Failure: No Hx Diabetes: No Hx Liver Disease: Yes (Hep B) Hx Arthritis: Yes Hx Asthma: Yes Hx COPD: Yes - Surgical History Past Surgical History?: Yes Additional Surgical History: Tumor removal 2011 - Social History Smoking Status: Current Some Day Smoker Substance Use Type: None - Medications Home Medications: Home Medications Medication Instructions Recorded Confirmed Last Taken Type Albuterol Sulfate [Ventolin HFA] 2 puff IH Q4H PRN 04/02/18 04/02/18 Unknown History Acetaminophen [Acetaminophen TAB] 650 mg PO Q6HR PRN #30 tablet 08/24/18 Unknown Rx ED Physical Exam - General Limitations: No Limitations General appearance: alert, anxious, in distress - Head Head exam: Present: atraumatic, normocephalic - Eye Eye exam: Present: normal appearance, PERRL, EOMI - ENT ENT exam: Present: normal orophraynx, mucous membranes moist - Neck Neck exam: Present: normal inspection - Respiratory Respiratory exam: Present: respiratory distress, wheezes, rhonchi, accessory muscle use. Absent: normal lung sounds bilaterally, rales, stridor - Cardiovascular Cardiovascular Exam: Present: normal rhythm, tachycardia, normal heart sounds. Absent: systolic murmur, diastolic murmur, rubs, gallop - GI/Abdominal GI/Abdominal exam: Present: soft, normal bowel sounds. Absent: distended, tenderness, guarding, rebound - Extremities Exam Extremities exam: Present: normal inspection - Back Exam Back exam: Present: normal inspection - Neurological Exam Neurological exam: Present: alert, oriented X3 - Psychiatric Psychiatric exam: Present: normal affect, normal mood - Skin Skin exam: Present: warm, dry, intact, normal color. Absent: rash ED Course Vital Signs 03/30/19 03/30/19 03/30/19 16:48 16:56 17:30 Temperature 98.6 F Pulse Rate 108 H 99 H Respiratory 16 24 Rate Blood Pressure 118/85 148/92 [Right] O2 Sat by Pulse 99 100 Oximetry ED Medical Decision Making - Lab Data Result diagrams: 03/30/19 17:30 03/30/19 17:30 Lab Results 03/30/19 03/30/19 03/30/19 Range/Units 17:30 17:30 17:30 WBC 4.8 (4.5-11.0) K/mm3 RBC 4.43 (3.65-5.03) M/mm3 Hgb 14.0 (10.1-14.3) gm/dl Hct 40.8 (30.3-42.9) % MCV 92 (79-97) fl MCH 32 (28-32) pg MCHC 34 (30-34) % RDW 13.6 (13.2-15.2) % Plt Count 179 (140-440) K/mm3 Lymph % (Auto) 18.0 (13.4-35.0) % [place] % (Auto) 5.1 (0.0-7.3) % Eos % (Auto) 3.7 (0.0-4.3) % Baso % (Auto) 1.1 (0.0-1.8) % Lymph # 0.9 L (1.2-5.4) K/mm3 [place] # 0.2 (0.0-0.8) K/mm3 Eos # 0.2 (0.0-0.4) K/mm3 Baso # 0.1 (0.0-0.1) K/mm3 Seg Neutrophils % 72.1 H (40.0-70.0) % Seg Neutrophils # 3.5 (1.8-7.7) K/mm3 APTT 36.0 (24.2-36.6) Sec. Sodium 138 (137-145) mmol/L Potassium 3.7 (3.6-5.0) mmol/L Chloride 103.6 (98-107) mmol/L Carbon Dioxide 20 L (22-30) mmol/L Anion Gap 18 mmol/L BUN 18 H (7-17) mg/dL Creatinine 0.7 (0.7-1.2) mg/dL Estimated GFR > 60 ml/min BUN/Creatinine Ratio 26 % Glucose 130 H (65-100) mg/dL Lactic Acid (0.7-2.0) mmol/L Calcium 10.1 (8.4-10.2) mg/dL Troponin T < 0.010 (0.00-0.029) ng/mL 03/30/19 Range/Units 17:30 WBC (4.5-11.0) K/mm3 RBC (3.65-5.03) M/mm3 Hgb (10.1-14.3) gm/dl Hct (30.3-42.9) % MCV (79-97) fl MCH (28-32) pg MCHC (30-34) % RDW (13.2-15.2) % Plt Count (140-440) K/mm3 Lymph % (Auto) (13.4-35.0) % [place] % (Auto) (0.0-7.3) % Eos % (Auto) (0.0-4.3) % Baso % (Auto) (0.0-1.8) % Lymph # (1.2-5.4) K/mm3 [place] # (0.0-0.8) K/mm3 Eos # (0.0-0.4) K/mm3 Baso # (0.0-0.1) K/mm3 Seg Neutrophils % (40.0-70.0) % Seg Neutrophils # (1.8-7.7) K/mm3 APTT (24.2-36.6) Sec. Sodium (137-145) mmol/L Potassium (3.6-5.0) mmol/L Chloride (98-107) mmol/L Carbon Dioxide (22-30) mmol/L Anion Gap mmol/L BUN (7-17) mg/dL Creatinine (0.7-1.2) mg/dL Estimated GFR ml/min BUN/Creatinine Ratio % Glucose (65-100) mg/dL Lactic Acid 1.60 (0.7-2.0) mmol/L Calcium (8.4-10.2) mg/dL Troponin T (0.00-0.029) ng/mL - EKG Data -: EKG Interpreted by Tn EKG shows normal: sinus rhythm, axis, intervals, QRS complexes, ST-T waves Rate: tachycardia - EKG Data Interpretation: other (Sinus Tachycardia) - Radiology Data Patient: MIRNA BERRY MR#: [id number] : 1955 Acct:[id number] Age/Sex: 63 / F ADM Date: 03/30/19 Loc: ED Attending Dr: Ordering Physician: JOE CABRERA MD Date of Service: 03/30/19 Procedure(s): XR chest 1V ap Accession Number(s): [id number] cc: JOE CABRERA MD Fluoro Time In Minutes: CHEST 1 VIEW 03/30/2019 5:02 PM INDICATION / CLINICAL INFORMATION: Chest Pain. COMPARISON: 2 views of the chest from 04/05/2018. FINDINGS: SUPPORT DEVICES: None. HEART / MEDIASTINUM: No significant abnormality. LUNGS / PLEURA: No significant pulmonary or pleural abnormality. No pneumothorax. ADDITIONAL FINDINGS: No significant additional findings. IMPRESSION: 1. No acute abnormality of the chest. Signer Name: Mesfin Medina MD Signed: 03/30/2019 5:17 PM Workstation Name: [id number] - Medical Decision Making Patient is a 63-year-old [place] female who received a neb treatment and Solu-Medrol prior to arrival who is presenting with rest or distress. Patient states she's also had subjective fevers at home. Chest x-ray was negative for obvious infiltrate. CT angiogram chest will be performed once the patient is more complicated lie flat to rule out occult pneumonia that was unable to be seen on the chest x-ray as well as pulmonary embolus. Patient's laboratory studies are unremarkable. Patient received an hour-long neb treatments continued to wheeze and is complaining of persistent chest discomfort. First troponin is negative there is no ST elevation on the EKG. Patient to be admitted to the hospitalist service. Critical Care Time: Yes (30) Critical care attestation.: If time is entered above; I have spent that time in minutes in the direct care of this critically ill patient, excluding procedure time. ED Disposition Clinical Impression: COPD with acute exacerbation Chest pain Qualifiers: Chest pain type: unspecified Qualified Code(s): R07.9 - Chest pain, unspecified Acute bronchitis Qualifiers: Bronchitis organism: unspecified organism Qualified Code(s): J20.9 - Acute bronchitis, unspecified Disposition: DC-09 OP ADMIT IP TO THIS HOSP Is pt being admited?: Yes Does the pt Need Aspirin: No Condition: Stable Instructions: Acute Bronchitis (ED) Time of Disposition: 18:35
[2019-03-30] MEDS: cefTRIAXone/NS 2 GM/100 ML 2 GM/100 ML BAG IV SCH (17:42)
[2019-03-30 17:47] LABS: Basophils # (Auto) 0.1 K/mm3 (0.0-0.1); Basophils % (Auto) 1.1 % (0.0-1.8); Eosinophils # (Auto) 0.2 K/mm3 (0.0-0.4); Eosinophils % (Auto) 3.7 % (0.0-4.3); Hematocrit 40.8 % (30.3-42.9); Lymphocytes # (Auto) 0.9 K/mm3 (1.2-5.4); Mean Corpuscular HGB Conc 34 % (30-34); Mean Corpuscular Volume 92 fl (79-97); Monocytes # (Auto) 0.2 K/mm3 (0.0-0.8); Monocytes % (Auto) 5.1 % (0.0-7.3); Platelet Count 179 K/mm3 (140-440); Red Blood Count 4.43 M/mm3 (3.65-5.03); Red Cell Distribution Width 13.6 % (13.2-15.2)
[2019-03-30 18:06] LABS: BUN/Creatinine Ratio 26; Blood Urea Nitrogen 18 mg/dL (7-17); Calcium 10.1 mg/dL (8.4-10.2); Hemolysis Index 19
--- NOTE | 2019-03-30 18:29 | History and Physical Report ---
History of Present Illness Chief complaint: I just cannot breathe and I am scared History of present illness: 63 YO Female with HBV, OA, Asthma, COPD, Nicotine Dependence presents to ED for evaluation. Pt states that she has experienced shortness of breath over the past 4 days with worsening symptoms over the same time frame. Pt acknowledges increased productive cough productive of yellow sputum, wheezing, increased use of nebulizer therapy without relief as well as chills. Patient acknowledges chest soreness which is brought on by coughing episodes. EMS notified, and upon arrival the patient was found to have respiratory distress. Pt transported to [facility] for further care and evaluation. Pt seen and evaluated in ED. Lab and imaging studies reviewed. Patient found to have COPD Exacerbation, complicated by Respiratory failure. Pt admitted to medical floor and treated with IV antibiotic and IV steroid therapy. Pt denies fever, chills, CP, Palpitations, NVD, Trauma, Skin rash, or recent ill contacts. Prior admission on 04/02/2018 reviewed. All listed medication reconciled at time of admission. Past History Past Medical History: COPD, hepatitis, other (See HPI) Past Surgical History: Other (Tumor excision) Social history: , smoking. denies: alcohol abuse, prescription drug abuse Family history: hypertension Medications and Allergies Allergies Allergy/AdvReac Type Severity Reaction Status Date / Time aspirin Allergy Unknown Verified 03/30/19 16:55 tramadol Allergy Unknown Verified 03/30/19 16:55 iv dye Allergy Hives Uncoded 03/30/19 16:55 Home Medications Medication Instructions Recorded Confirmed Last Taken Type Albuterol Sulfate [Ventolin HFA] 2 puff IH Q4H PRN 04/02/18 04/02/18 Unknown History Acetaminophen [Acetaminophen TAB] 650 mg PO Q6HR PRN #30 tablet 08/24/18 Un known Rx Active Meds: Active Medications Ceftriaxone Sodium (Rocephin/Ns 2 Gm/100 Ml) 2 gm in 100 mls @ 200 mls/hr IV Q24HR MAMIE; Protocol Last Admin: 03/30/19 17:42 Dose: 200 mls/hr Documented by: Azithromycin 500 mg/ Sodium (Chloride) 250 mls @ 250 mls/hr IV Q24H MAMIE; Protocol Review of Systems Constitutional: chills, no weight loss, no weight gain, no fever Ears, nose, mouth and throat: no ear pain, no ear discharge, no tinnitis, no decreased hearing, no nose pain Breasts: no change in shape, no swelling, no mass Cardiovascular: no chest pain, no orthopnea, no palpitations Respiratory: cough, cough with sputum, excessive sputum, shortness of breath, wheezing Gastrointestinal: no abdominal pain, no nausea, no vomiting, no diarrhea, no constipation Genitourinary Female: no pelvic pain, no flank pain, no menorrhagia, no dysuria, no urinary frequency, no urgency Rectal: no pain, no incontinence, no bleeding Musculoskeletal: no neck stiffness, no neck pain, no shooting arm pain, no arm numbness/tingling, no low back pain, no shooting leg pain, no leg numbness/tingling Integumentary: no rash, no pruritis, no redness, no sores, no wounds Neurological: no transient paralysis, no paralysis, no weakness, no parathesias, no numbness, no tingling, no seizures, no syncope, no tremors, no ataxia, no lack of coordination Psychiatric: no anxiety, no memory loss, no change in sleep habits, no sleep disturbances, no insomnia, no hypersomnia, no change in appetite, no change in libido Endocrine: no cold intolerance, no heat intolerance, no polyphagia, no excessive thirst Hematologic/Lymphatic: no easy bruising, no easy bleeding, no lymphadenopathy Allergic/Immunologic: no urticaria, no allergic rhinitis, no wheezing, no anaphylaxis Exam - Constitutional Vitals: Temp Pulse Resp BP Pulse Ox 98.6 F 99 H 24 148/92 100 03/30/19 16:56 03/30/19 17:30 03/30/19 17:30 03/30/19 17:30 03/30/19 17:30 General appearance: Present: mild distress - EENT Eyes: Present: PERRL ENT: hearing intact, clear oral mucosa - Neck Neck: Present: supple, normal ROM - Respiratory Respiratory effort: normal, labored, pursed lips, accessory muscle use, stridor Respiratory: bilateral: diminished, rhonchi - Cardiovascular Heart Sounds: Present: S1 & S2. Absent: rub, click - Extremities Extremities: pulses symmetrical, No edema Peripheral Pulses: within normal limits - Abdominal General gastrointestinal: Present: soft, non-tender, non-distended, normal bowel sounds Female genitourinary: Present: normal - Integumentary Integumentary: Present: clear, warm, dry - Musculoskeletal Musculoskeletal: gait normal, strength equal bilaterally - Psychiatric Psychiatric: appropriate mood/affect, intact judgment & insight - Neurologic Neurologic: CNII-XII intact, moves all extremities Results - Labs CBC & Chem 7: 03/30/19 17:30 03/30/19 17:30 Labs: Abnormal lab results 03/30/19 03/30/19 Range/Units 17:30 17:30 Lymph # 0.9 L (1.2-5.4) K/mm3 Seg Neutrophils % 72.1 H (40.0-70.0) % Carbon Dioxide 20 L (22-30) mmol/L BUN 18 H (7-17) mg/dL Glucose 130 H (65-100) mg/dL Assessment and Plan - Patient Problems (1) Acute respiratory failure Current Visit: No Status: Acute Qualifiers: Respiratory failure complication: hypoxia Qualified Code(s): J96.01 - Acute respiratory failure with hypoxia Plan to address problem: Supplemental oxygen, nebulizer therapy, chest x-ray, pulse oximetry, CBC, CMP, ABG, noninvasive positive pressure ventilation as clinically indicated. Smoking cessation. IV steroid therapy, empiric IV antibiotic therapy. (2) COPD with acute exacerbation Current Visit: Yes Status: Acute Plan to address problem: Supplemental oxygen, nebulizer therapy, pulse oximetry, ABG, IV steroid therapy, supportive care. (3) Nicotine dependence unspecified, with withdrawal Current Visit: No Status: Acute Qualifiers: Nicotine product type: cigarettes Qualified Code(s): F17.213 - Nicotine dependence, cigarettes, with withdrawal Plan to address problem: Patient counseled regarding smoking cessation, supportive care, behavior change counseling, +15 minutes (4) DVT prophylaxis Current Visit: No Status: Acute Plan to address problem: SCD to bilateral lower extremity while in bed, prophylactic heparin.
[2019-03-30] MEDS ORDERED: ACETAMINOPHEN 325 MG TAB PO PRN (18:30)
[2019-03-30] MEDS ORDERED: LORazepam 2 MG/ML VIAL ONE (18:53)
[2019-03-30] MEDS ORDERED: LORazepam 2 MG/ML VIAL IV ONE (18:55)
[2019-03-30] MEDS ORDERED: SODIUM CHLORIDE 0.9% 1000 ML 1,000 ML ONE (19:24)
[2019-03-30] MEDS ORDERED: MORPHINE 2 MG/1 ML INJ IV ONE (20:28)
[2019-03-30] MEDS ORDERED: MORPHINE 2 MG/1 ML INJ ONE (20:38)
[2019-03-30] MEDS: AZITHROMYCIN 500 MG in SODIUM CHLORIDE 0.9% 250ML 250 ML IV SCH (20:47)
[2019-03-30 20:48] LABS: ABG Base Excess -4.4 mmol/L (-2.0-3.0); ABG HCO3 21.1 mmol/L (20.0-26.0); ABG Methemoglobin 0.6 % (0.0-1.5); ABG Oxygen Saturation 94.6 % (95.0-99.0); ABG PCO2 40.1 mm Hg; ABG PH 7.338 pH Units (7.350-7.450); ABG PO2 71.5 mm Hg (80.0-90.0)
[2019-03-30] MEDS: ACETAMINOPHEN 325 MG TAB PO PRN (23:45)
[2019-03-30] MEDS: methylPREDNISolone Sod Succinate 40 MG/1 ML INJ IV SCH (23:46)
[2019-03-30] MEDS: HEPARIN 5,000 UNIT/1 ML VIAL SUB-Q SCH (23:46)
[2019-03-31] MEDS: MORPHINE 2 MG/1 ML INJ IV PRN ×3 (04:38→20:05)
[2019-03-31] MEDS: ALBUTEROL 2.5 MG/3 ML NEBU IH PRN ×2 (07:44→12:48)
[2019-03-31] MEDS: ACETAMINOPHEN 325 MG TAB PO PRN (08:37)
[2019-03-31] MEDS: methylPREDNISolone Sod Succinate 40 MG/1 ML INJ IV SCH ×2 (09:30→22:19)
[2019-03-31] MEDS: HEPARIN 5,000 UNIT/1 ML VIAL SUB-Q SCH (09:30)
[2019-03-31] MEDS ORDERED: AZITHROMYCIN 500 MG in SODIUM CHLORIDE 0.9% 250ML 250 ML IV SCH (10:00)
[2019-03-31] MEDS: cefTRIAXone/NS 2 GM/100 ML 2 GM/100 ML BAG IV SCH (10:04)
--- NOTE | 2019-03-31 11:41 | Nuclear Medicine Report ---
VENTILATION PERFUSION PULMONARY SCINTIGRAPHY HISTORY: Chest pain and difficulty breathing. COMPARISON: 03/30/2019 chest radiograph. TECHNIQUE: Radiopharmaceutical was inhaled. Tc-99m-MAA was then injected. Ventilation and perfusion images were acquired. RADIOPHARMACEUTICAL: 19.3 mCi of Xe-133 inhaled 4.0 mCi of Tc-99m-MAA injected FINDINGS: VENTILATION: No significant defect. Washout phase basilar air trapping. PERFUSION: A moderate size perfusion defect in the lower lobe superior segment and smaller defects in the right lower lobe posterior basal and lateral basal segments. Additional Findings: None. IMPRESSION: 1. Intermediate probability for pulmonary embolism. Signer Name: Hal Jones MD Signed: 03/31/2019 11:37 AM Workstation Name: [id number]
[2019-03-31 15:44] LABS: Hematocrit 37.8 % (30.3-42.9); Hemoglobin 12.8 gm/dl (10.1-14.3)
[2019-03-31 15:58] LABS: INR 0.99 (0.87-1.13)
[2019-03-31 15:59] LABS: Partial Thromboplastin Time 38.9 Sec. (24.2-36.6)
[2019-03-31] MEDS: HEPARIN/ 0.45% NACL DRIP 25,000 UNIT/500 ML BAG IV SCH (16:06)
[2019-03-31] MEDS: AZITHROMYCIN 500 MG in SODIUM CHLORIDE 0.9% 250ML 250 ML IV SCH ×2 (16:50→18:40)
[2019-03-31 16:57] LABS: Bilirubin,Urine NEG (Negative); Blood,Urine NEG (Negative); Color,Urine Straw (Yellow); Protein,Urine <15 mg/dL mg/dL (Negative); Urobilinogen,Urine < 2.0 mg/dL (<2.0); WBC,Urine < 1.0 /HPF (0.0-6.0)
[2019-03-31 16:58] LABS: RBC,Urine < 1.0 /HPF (0.0-6.0)
--- NOTE | 2019-03-31 17:05 | Progress Note ---
Assessment and Plan / Acute hypoxic respiratory failure due to COPD exacerbation and possible PE cont Supplemental oxygen, nebulizer therapy, pulse oximetry, noninvasive positive pressure ventilation as clinically indicated. counseled for Smoking cessation. IV steroid therapy, empiric IV antibiotic therapy. /Acute PE - intermediate probability on VQ scan, she is allergic to contrast dye - so CTA cannot be done - cont heparin drip - consult pulmonary /COPD with acute exacerbation Supplemental oxygen, nebulizer therapy, pulse oximetry, IV steroid therapy, supportive care. 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 Subjective Date of service: 03/31/19 Interval history: Patient seen and examined c/o SOB and headache has difficulty breathing on minimal exertion Objective - Constitutional Vitals: Vital Signs - 12hr 03/31/19 03/31/19 03/31/19 05:37 07:44 08:06 Temperature 97.0 F L Pulse Rate 90 Pulse Rate [ 97 H Anterior Bilateral Throughout] Pulse Rate [ 91 H Posterior Bilateral Throughout] Respiratory 18 Rate Respiratory 20 Rate [Anterior Bilateral Throughout] Respiratory 22 Rate [Posterior Bilateral Throughout] Blood Pressure 132/85 O2 Sat by Pulse 96 100 Oximetry 03/31/19 03/31/19 03/31/19 10:00 12:32 13:13 Temperature 98.0 F Pulse Rate 78 Pulse Rate [ 107 H Anterior Bilateral Throughout] Pulse Rate [ Posterior Bilateral Throughout] Respiratory 22 Rate Respiratory 20 Rate [Anterior Bilateral Throughout] Respiratory Rate [Posterior Bilateral Throughout] Blood Pressure 128/94 O2 Sat by Pulse 97 97 Oximetry General appearance: Present: mild distress, other (malnourished) - EENT Eyes: PERRL, EOM intact ENT: hearing intact, clear oral mucosa Ears: bilateral: normal - Neck Neck: supple, normal ROM - Respiratory Respiratory effort: normal Respiratory: bilateral: rhonchi, wheezing - Cardiovascular Rhythm: regular Heart Sounds: Present: S1 & S2. Absent: gallop, rub Extremities: pulses intact, No edema, normal color, Full ROM - Gastrointestinal General gastrointestinal: Present: soft, non-tender, non-distended, normal bowel sounds - Integumentary Integumentary: clear, warm, dry - Musculoskeletal Musculoskeletal: 1, strength equal bilaterally - Neurologic Neurologic: moves all extremities - Psychiatric Psychiatric: memory intact, appropriate mood/affect, intact judgment & insight - Labs CBC & Chem 7: 04/02/19 06:48 03/30/19 17:30 Labs: Abnormal lab results 03/30/19 03/30/19 03/30/19 Range/Units 17:30 17:30 20:35 Lymph # 0.9 L (1.2-5.4) K/mm3 Seg Neutrophils % 72.1 H (40.0-70.0) % APTT (24.2-36.6) Sec. ABG pH 7.338 L (7.350-7.450) pH Units ABG pO2 71.5 L (80.0-90.0) mm Hg ABG O2 Saturation 94.6 L (95.0-99.0) % ABG Base Excess -4.4 L (-2.0-3.0) mmol/L Oxyhemoglobin 91.7 L (95.0-99.0) % Carbon Dioxide 20 L (22-30) mmol/L BUN 18 H (7-17) mg/dL Glucose 130 H (65-100) mg/dL 03/31/19 Range/Units 14:57 Lymph # (1.2-5.4) K/mm3 Seg Neutrophils % (40.0-70.0) % APTT 38.9 H (24.2-36.6) Sec. ABG pH (7.350-7.450) pH Units ABG pO2 (80.0-90.0) mm Hg ABG O2 Saturation (95.0-99.0) % ABG Base Excess (-2.0-3.0) mmol/L Oxyhemoglobin (95.0-99.0) % Carbon Dioxide (22-30) mmol/L BUN (7-17) mg/dL Glucose (65-100) mg/dL
[2019-03-31] MEDS: BUTALB/ACETAMINOPHEN/CAFFEINE TAB PO PRN (18:50)
[2019-03-31] MEDS: IPRATROPIUM/ALBUTEROL SULFATE 3 ML AMPUL.NEB IH SCH (20:08)
[2019-03-31] MEDS: NICOTINE 14 MG/24 HR PATCH TD SCH (22:19)
[2019-04-01] MEDS: MORPHINE 2 MG/1 ML INJ IV PRN ×4 (01:25→23:55)
[2019-04-01] MEDS: IPRATROPIUM/ALBUTEROL SULFATE 3 ML AMPUL.NEB IH SCH ×4 (02:10→20:09)
[2019-04-01] MEDS: methylPREDNISolone Sod Succinate 40 MG/1 ML INJ IV SCH ×3 (05:18→22:56)
--- NOTE | 2019-04-01 06:40 | Consultation ---
History of Present Illness Consult date: 04/01/19 Requesting physician: GO HOBSON Reason for consult: COPD History of present illness: 63 YO Female with HBV, OA, Asthma, COPD presents to ED for evaluation. Pt states that she has experienced shortness of breath over the past 4 days with worsening symptoms over the same time frame. Pt acknowledges increased productive cough productive of yellow sputum, wheezing, increased use of nebulizer therapy without relief as well as chills. Patient acknowledges chest soreness which is brought on by coughing episodes. EMS notified, and upon arrival the patient was found to have respiratory distress. Pt transported to [facility] for further care and evaluation. Pt seen and evaluated in ED. Lab and imaging studies reviewed. Patient found to have COPD Exacerbation, complicated by Respiratory failure. Pt admitted to medical floor and treated with IV antibiotic and IV steroid therapy. I have been consulted for acute respiratory failure and AE-COPD. Thank you for the consult. Patient was seen and examined. Vitals, labs, medications, chart and imaging were reviewed. Patient denies fever, chills, CP, Palpitations, NVD, Trauma, Skin rash, or recent sick contacts. Complaints of left lower back pain She denies a history of previous intubations. She is smoking about 1/2 pack of cigarettes a day. Her family is at the bedside at the time of my visit. Past History Past Medical History: COPD, hepatitis, other (See HPI) Past Surgical History: Other (Tumor excision) Social history: , smoking. denies: alcohol abuse, prescription drug abuse Family history: hypertension Medications and Allergies Allergies Allergy/AdvReac Type Severity Reaction Status Date / Time aspirin Allergy Unknown Verified 03/30/19 16:55 tramadol Allergy Unknown Verified 03/30/19 16:55 iv dye Allergy Hives Uncoded 03/30/19 16:55 Home Medications Medication Instructions Recorded Confirmed Last Taken Type Albuterol Sulfate [Ventolin HFA] 2 puff IH Q4H PRN 04/02/18 03/31/19 Unknown History Acetaminophen [Acetaminophen TAB] 650 mg PO Q6HR PRN #30 tablet 08/24/18 03/31/19 Unknown Rx Active Meds: Active Medications Acetaminophen (Tylenol) 650 mg PO Q6HR PRN PRN Reason: Pain, Mild (1-3) Last Admin: 03/31/19 08:37 Dose: 650 mg Documented by: Acetaminophen/Butalbital/Caffeine (Fioricet) 1 tab PO Q4H PRN PRN Reason: Headache Last Admin: 03/31/19 18:50 Dose: 1 tab Documented by: Albuterol (Proventil) 2.5 mg IH Q4HRT PRN PRN Reason: Shortness Of Breath Last Admin: 03/31/19 12:48 Dose: 2.5 mg Documented by: Albuterol/Ipratropium (Duoneb *Not For Prn Use*) 1 ampul IH Q6HRT [facility] Last Admin: 04/01/19 02:10 Dose: 1 ampul Documented by: Ceftriaxone Sodium (Rocephin/Ns 2 Gm/100 Ml) 2 gm in 100 mls @ 200 mls/hr IV Q24HR [facility]; Protocol Last Admin: 03/31/19 10:04 Dose: 200 mls/hr Documented by: Azithromycin 500 mg/ Sodium (Chloride) 250 mls @ 250 mls/hr IV Q24H [facility]; Protocol Stop: 04/03/19 18:59 Last Admin: 03/31/19 18:40 Dose: Not Given Documented by: Heparin Sodium/Sodium Chloride (Heparin/ 0.45% Nacl-25,000 Unit/500 Ml) 25,000 unit in 500 mls @ 15 mls/hr IV TITR [facility]; Protocol Last Admin: 03/31/19 16:06 Dose: 750 units/hr, 15 mls/hr Documented by: Methylprednisolone Sodium Succinate (Solu-Medrol) 40 mg IV Q8HR [facility] Last Admin: 04/01/19 05:18 Dose: 40 mg Documented by: Morphine Sulfate (Morphine) 2 mg IV Q6H PRN PRN Reason: Pain , Severe (7-10) Last Admin: 04/01/19 01:25 Dose: 2 mg Documented by: Nicotine (Habitrol) 14 mg TD QDAY@2200 [facility] Last Admin: 03/31/19 22:19 Dose: 14 mg Documented by: Ondansetron HCl (Zofran) 4 mg IV Q8H PRN PRN Reason: Nausea And Vomiting Pneumococcal Polyvalent Vaccine (Pneumovax 23) 0.5 ml IM .ONCE ONE Stop: 04/01/19 12:01 Sodium Chloride (Sodium Chloride Flush Syringe 10 Ml) 10 ml IV BID [facility] Last Admin: 03/31/19 22:20 Dose: 10 ml Documented by: Sodium Chloride (Sodium Chloride Flush Syringe 10 Ml) 10 ml IV PRN PRN PRN Reason: LINE FLUSH Physical Examination Vital signs: Vital Signs BP 118/85 03/30/19 16:48 General appearance: alert, other (mild respiratory distress ,chronically ill looking AAW) Eyes: non-icteric ENT: oropharynx moist Neck: supple, no lymphadenopathy, no JVD Effort: mildly labored Ascultation: Bilateral: diminished breath sounds, wheezes (expiratory) Cardiovascular: regular rate and rhythm, other (S1,S2) Gastrointestinal: normoactive bowel sounds, soft, non-tender, non-distended Integumentary: normal Extremities: no cyanosis, no edema, pink and warm, pulses normal Musculoskeletal: no deformities Gait: normal gait, normal posture normal mental status, non-focal exam, pupils equal and round, CN II-XII normal, motor strength normal and mood appropriate, affect normal Results - Laboratory Findings CBC and BMP: 03/31/19 14:57 03/30/19 17:30 ABG ABG pH 7.338 pH Units (7.350-7.450) L 03/30/19 20:35 ABG pCO2 40.1 mm Hg 03/30/19 20:35 ABG pO2 71.5 mm Hg (80.0-90.0) L 03/30/19 20:35 ABG O2 Saturation 94.6 % (95.0-99.0) L 03/30/19 20:35 PT/INR, D-dimer PT 13.2 Sec. (12.2-14.9) 03/31/19 14:57 INR 0.99 (0.87-1.13) 03/31/19 14:57 D-Dimer 157.97 ng/mlDDU (0-234) 03/30/19 17:30 Abnormal lab findings: Abnormal Labs 03/30/19 03/30/19 03/30/19 17:30 17:30 20:35 Lymph # 0.9 L Seg Neutrophils % 72.1 H APTT ABG pH 7.338 L ABG pO2 71.5 L ABG O2 Saturation 94.6 L ABG Base Excess -4.4 L Oxyhemoglobin 91.7 L Carbon Dioxide 20 L BUN 18 H Glucose 130 H 03/31/19 14:57 Lymph # Seg Neutrophils % APTT 38.9 H ABG pH ABG pO2 ABG O2 Saturation ABG Base Excess Oxyhemoglobin Carbon Dioxide BUN Glucose - Diagnostic Findings Chest x-ray: image reviewed (Hyperinflated, no acute pulmoanry infiltrates) Additional studies: V/Q sca- Intermediate probability for pulmonary embolism Assessment and Plan AE-COPD Tobacco use disorder Intermediate probability V/Q scan with left sided back pain h/o HBV -Supplemental oxygen to keep O2 sats 88-90% -Bronchodilators -Steroids -Glycemic control while on steroids, accuchecks -NIPPV as indicated -Stress ulcer prophylaxis while on high dose steroids and NIPPV -Smoking cessation counselling done at the bedside fro 7 mins, behavior modification counselling -Nicotine withdrawal precautions -Chronic home medications as indicated -Analgesia, pain management Patient has an intermediate probability VQ scan. She has clinical symptoms suggestive of PE. She does have a documented history of IV dye allergy- it is unclear what the allergy is. will recommend lower extremity venous dopplers, transthoracic echocardiogram and pre-contrast allergy preparation with CTA r/o PE In the interim start on therapeutic anticoagulation for PE. - ABG and CXR prn -CBC and BMP in the morning. Thank you for the consult. Will follow Please do not hesitate to call with questions or concerns
[2019-04-01] MEDS: cefTRIAXone/NS 2 GM/100 ML 2 GM/100 ML BAG IV SCH (09:25)
[2019-04-01] MEDS ORDERED: PNEUMOCOCCAL 23 Valent 0.5 ML VIAL IM ONE (12:00)
[2019-04-01] MEDS ORDERED: FLU VACC QUAD 2019-20 (3 YR UP)/PF 60 MCG/0.5 ML SYRINGE IM ONE (12:00)
[2019-04-01] MEDS: LORazepam 2 MG/ML VIAL IV PRN (13:20)
--- NOTE | 2019-04-01 15:02 | Magnetic Resonance Report ---
MRI BRAIN WITHOUT CONTRAST INDICATION / CLINICAL INFORMATION: brain cyst. Left-sided weakness and headaches TECHNIQUE: Multisequence, multiplanar images were obtained. 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 This cyst appears to communicate with the right vent ricular system or expand the right occipital horn. 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 There is mild surrounding mass effect and sulcal effacement in the right parieto-occipital region but no evidence for brain edema. No evidence for diffusion restriction, hemo rrhage or soft tissue mass. Minimal nonspecific chronic white matter changes are noted which probably represent chronic microangiopathy. No chronic infarct or extra-axial fluid collection. The posterior fossa and contents are unremarkable. Chronic right medial orbital wall fracture is again noted. The orbital contents are within normal crooks its otherwise. The sinuses are clear. The calvarium is intact. IMPRESSION: No acute intracranial process. Stable appearance of the right parieto-occipital cystic lesion as described. There is mild sulcal effacement in the right parieto-occipital region due to mass effect. This findin g is unchanged. Mild chronic microangiopathy in the white matter. No change since the CT head dated 08/24/2018. Signer Name: Chalino Cormier Jr, MD Signed: 04/01/2019 2:58 PM Workstation Name: [id number]
[2019-04-01] MEDS: AZITHROMYCIN 500 MG in SODIUM CHLORIDE 0.9% 250ML 250 ML IV SCH (19:54)
[2019-04-01] MEDS: NICOTINE 14 MG/24 HR PATCH TD SCH (22:56)
[2019-04-01] MEDS: BUTALB/ACETAMINOPHEN/CAFFEINE TAB PO PRN (23:33)
[2019-04-01] MEDS: ONDANSETRON 4 MG/2 ML INJ IV PRN (23:35)
[2019-04-02] MEDS: LORazepam 2 MG/ML VIAL IV PRN ×3 (00:19→20:25)
[2019-04-02] MEDS ORDERED: METOCLOPRAMIDE 10 MG/2 ML INJ IV ONE (00:41)
[2019-04-02] MEDS: HEPARIN/ 0.45% NACL DRIP 25,000 UNIT/500 ML BAG IV SCH (01:43)
[2019-04-02] MEDS: IPRATROPIUM/ALBUTEROL SULFATE 3 ML AMPUL.NEB IH SCH ×4 (02:15→21:21)
[2019-04-02] MEDS: methylPREDNISolone Sod Succinate 40 MG/1 ML INJ IV SCH ×3 (05:29→22:22)
[2019-04-02] MEDS: MORPHINE 2 MG/1 ML INJ IV PRN ×2 (05:29→14:11)
[2019-04-02 07:05] LABS: Hematocrit 36.6 % (30.3-42.9); Hemoglobin 12.2 gm/dl (10.1-14.3)
--- NOTE | 2019-04-02 09:17 | Progress Note ---
Assessment and Plan / Acute hypoxic respiratory failure due to COPD exacerbation and possible PE cont Supplemental oxygen, nebulizer therapy, pulse oximetry, noninvasive positive pressure ventilation as clinically indicated. counseled for Smoking cessation. IV steroid therapy, empiric IV antibiotic therapy. /Acute PE - intermediate probability on VQ scan, she is allergic to contrast dye - so CTA cannot be done - cont heparin drip - consulted pulmonary - order LE venous doppler /COPD with acute exacerbation Supplemental oxygen, nebulizer therapy, pulse oximetry, IV steroid therapy, supportive care. 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 Subjective Date of service: 04/01/19 Interval history: Patient seen and examined continue to c/o SOB and headache has difficulty breathing on minimal exertion Objective - Exam Narrative Exam: General appearance: Present: mild distress, other (malnourished) - EENT Eyes: PERRL, EOM intact ENT: hearing intact, clear oral mucosa Ears: bilateral: normal - Neck Neck: supple, normal ROM - Respiratory Respiratory effort: normal Respiratory: bilateral: rhonchi, wheezing - Cardiovascular Rhythm: regular Heart Sounds: Present: S1 & S2. Absent: gallop, rub Extremities: pulses intact, No edema, normal color, Full ROM - Gastrointestinal General gastrointestinal: Present: soft, non-tender, non-distended, normal bowel sounds - Integumentary Integumentary: clear, warm, dry - Musculoskeletal Musculoskeletal: 1, strength equal bilaterally - Neurologic Neurologic: moves all extremities - Psychiatric Psychiatric: memory intact, appropriate mood/affect, intact judgment & insight - Constitutional Vitals: Vital Signs - 12hr 04/01/19 04/01/19 04/01/19 22:00 23:33 23:55 Pulse Rate [ Anterior Bilateral Throughout] Respiratory 18 18 Rate Respiratory Rate [Anterior Bilateral Throughout] Respiratory 18 Rate [chest pain] O2 Sat by Pulse Oximetry 04/02/19 04/02/19 04/02/19 00:33 05:29 05:59 Pulse Rate [ Anterior Bilateral Throughout] Respiratory 18 18 18 Rate Respiratory Rate [Anterior Bilateral Throughout] Respiratory Rate [chest pain] O2 Sat by Pulse Oximetry 04/02/19 04/02/19 08:23 08:24 Pulse Rate [ 78 Anterior Bilateral Throughout] Respiratory Rate Respiratory 20 Rate [Anterior Bilateral Throughout] Respiratory Rate [chest pain] O2 Sat by Pulse 100 Oximetry - Labs CBC & Chem 7: 04/02/19 06:48 03/30/19 17:30
[2019-04-02] MEDS: cefTRIAXone/NS 2 GM/100 ML 2 GM/100 ML BAG IV SCH (09:34)
--- NOTE | 2019-04-02 12:03 | Vascular Lab Report ---
DUPLEX DOPPLER LOWER EXTREMITY VEINS, BILATERAL INDICATION: pulmonary embolism. Bilateral lower extremity pain. TECHNIQUE: Duplex doppler imaging was performed through the veins of both lower extremities using ve nous compression and other maneuvers. COMPARISON: No relevant prior imaging study available. FINDINGS: Right Common femoral vein: Negative. Right Superficial femoral vein: Negative. Right Popliteal vein: Negative. Right Calf veins: Negative. Left Common femoral vein: Negative. Left Superficial femoral vein: Negative. Left Popliteal vein: Negative. Left Calf veins: Negative. Additional findings: None.. IMPRESSION: No sonographic evidence for DVT in either lower extremity. Signer Name: Chalino Cormier Jr, MD Signed: 04/02/2019 11:59 AM Workstation Name: [id number]
--- NOTE | 2019-04-02 12:26 | Progress Note ---
Assessment and Plan AE-COPD Tobacco use disorder Intermediate probability V/Q scan with left sided back pain h/o HBV -Supplemental oxygen to keep O2 sats 88-90% -Bronchodilators -Steroids -Glycemic control while on steroids, accuchecks -NIPPV as indicated -Stress ulcer prophylaxis while on high dose steroids and NIPPV -Smoking cessation counselling done at the bedside fro 7 mins, behavior modification counselling -Nicotine withdrawal precautions -Chronic home medications as indicated -Analgesia, pain management Patient has an intermediate probability VQ scan. She has clinical symptoms suggestive of PE. She does have a documented history of IV dye allergy- it is unclear what the allergy is. will recommend lower extremity venous dopplers, transthoracic echocardiogram and pre-contrast allergy preparation with CTA r/o PE In the interim start on therapeutic anticoagulation for PE. - ABG and CXR prn -CBC and BMP in the morning. Thank you for the consult. Will follow Please do not hesitate to call with questions or concerns Subjective Date of service: 04/02/19 Interval history: Patient is seen today for: Seen and examined at bedside; 24hour events reviewed; nursing and respiratory care staff consulted; no adverse overnight events reported to me; Objective Vital Signs - 12hr 04/02/19 04/02/19 04/02/19 00:33 05:29 05:59 Pulse Rate [ Anterior Bilateral Throughout] Respiratory 18 18 18 Rate Respiratory Rate [Anterior Bilateral Throughout] O2 Sat by Pulse Oximetry 04/02/19 04/02/19 08:23 08:24 Pulse Rate [ 78 Anterior Bilateral Throughout] Respiratory Rate Respiratory 20 Rate [Anterior Bilateral Throughout] O2 Sat by Pulse 100 Oximetry Constitutional: alert, other (mild respiratory distress ,chronically ill looking AAW) Eyes: non-icteric ENT: oropharynx moist Neck: supple, no lymphadenopathy, no JVD Effort: mildly labored Ascultation: Bilateral: diminished breath sounds, wheezes (expiratory) Cardiovascular: regular rate and rhythm, other (S1,S2) Gastrointestinal: normoactive bowel sounds, soft, non-tender, non-distended Integumentary: normal Extremities: no cyanosis, no edema, pink and warm, pulses normal Neurologic: normal mental status, non-focal exam, pupils equal and round, CN II- XII normal, motor strength normal and Psychiatric: mood appropriate, affect normal CBC and BMP: 04/02/19 06:48 03/30/19 17:30 ABG, PT/INR, D-dimer: ABG ABG pH 7.338 pH Units (7.350-7.450) L 03/30/19 20:35 ABG pCO2 40.1 mm Hg 03/30/19 20:35 ABG pO2 71.5 mm Hg (80.0-90.0) L 03/30/19 20:35 ABG O2 Saturation 94.6 % (95.0-99.0) L 03/30/19 20:35 PT/INR, D-dimer PT 13.2 Sec. (12.2-14.9) 03/31/19 14:57 INR 0.99 (0.87-1.13) 03/31/19 14:57 D-Dimer 157.97 ng/mlDDU (0-234) 03/30/19 17:30 Abnormal lab findings: Abnormal Labs 03/30/19 03/30/19 03/30/19 17:30 17:30 20:35 Lymph # 0.9 L Seg Neutrophils % 72.1 H APTT ABG pH 7.338 L ABG pO2 71.5 L ABG O2 Saturation 94.6 L ABG Base Excess -4.4 L Oxyhemoglobin 91.7 L Carbon Dioxide 20 L BUN 18 H Glucose 130 H 03/31/19 14:57 Lymph # Seg Neutrophils % APTT 38.9 H ABG pH ABG pO2 ABG O2 Saturation ABG Base Excess Oxyhemoglobin Carbon Dioxide BUN Glucose
--- NOTE | 2019-04-02 16:05 | Progress Note ---
Assessment and Plan / Acute hypoxic respiratory failure due to COPD exacerbation and possible PE cont Supplemental oxygen, nebulizer therapy, pulse oximetry, noninvasive positive pressure ventilation as clinically indicated. counseled for Smoking cessation. IV steroid therapy, empiric IV antibiotic therapy. /Acute PE - intermediate probability on VQ scan, she is allergic to contrast dye - so CTA cannot be done - change heparin drip to eliquis - consulted pulmonary - LE venous doppler was negative - plan to treat her for 6 months for possible PE /COPD with acute exacerbation Supplemental oxygen, nebulizer therapy, pulse oximetry, IV steroid therapy, supportive care. 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 Disposition: when clinically more stable Subjective Date of service: 04/02/19 Interval history: Patient seen and examined continue to c/o SOB and pleuretic chest pain has difficulty breathing on exertion specially on ambulation - develops wheezing Objective - Exam Narrative Exam: General appearance: Present: mild distress, other (malnourished) - EENT Eyes: PERRL, EOM intact ENT: hearing intact, clear oral mucosa Ears: bilateral: normal - Neck Neck: supple, normal ROM - Respiratory Respiratory effort: normal Respiratory: bilateral: rhonchi, wheezing - Cardiovascular Rhythm: regular Heart Sounds: Present: S1 & S2. Absent: gallop, rub Extremities: pulses intact, No edema, normal color, Full ROM - Gastrointestinal General gastrointestinal: Present: soft, non-tender, non-distended, normal bowel sounds - Integumentary Integumentary: clear, warm, dry - Musculoskeletal Musculoskeletal: 1, strength equal bilaterally - Neurologic Neurologic: moves all extremities - Psychiatric Psychiatric: memory intact, appropriate mood/affect, intact judgment & insight - Constitutional Vitals: Vital Signs - 12hr 04/02/19 04/02/19 04/02/19 04:54 05:29 05:59 Temperature 97.7 F Pulse Rate 78 Pulse Rate [ Anterior Bilateral Throughout] Respiratory 18 18 18 Rate Respiratory Rate [Anterior Bilateral Throughout] Blood Pressure 126/81 O2 Sat by Pulse 99 Oximetry 04/02/19 04/02/19 04/02/19 08:23 08:24 12:14 Temperature 97.0 F L Pulse Rate 70 Pulse Rate [ 78 Anterior Bilateral Throughout] Respiratory 18 Rate Respiratory 20 Rate [Anterior Bilateral Throughout] Blood Pressure 131/71 O2 Sat by Pulse 100 96 Oximetry 04/02/19 14:32 Temperature Pulse Rate Pulse Rate [ 70 Anterior Bilateral Throughout] Respiratory Rate Respiratory 20 Rate [Anterior Bilateral Throughout] Blood Pressure O2 Sat by Pulse Oximetry - Labs CBC & Chem 7: 04/02/19 06:48 04/03/19 05:23
[2019-04-02] MEDS: APIXABAN 5 MG TAB PO SCH ×2 (17:02→22:21)
[2019-04-02] MEDS: AZITHROMYCIN 500 MG in SODIUM CHLORIDE 0.9% 250ML 250 ML IV SCH (19:22)
[2019-04-02] MEDS: BUTALB/ACETAMINOPHEN/CAFFEINE TAB PO PRN (20:24)
[2019-04-02] MEDS: CYCLOBENZAPRINE 10 MG TAB PO PRN (20:25)
[2019-04-02] MEDS: NICOTINE 14 MG/24 HR PATCH TD SCH (22:19)
[2019-04-03] MEDS: IPRATROPIUM/ALBUTEROL SULFATE 3 ML AMPUL.NEB IH SCH ×3 (01:53→13:57)
[2019-04-03] MEDS: LORazepam 2 MG/ML VIAL IV PRN (05:29)
[2019-04-03] MEDS: methylPREDNISolone Sod Succinate 40 MG/1 ML INJ IV SCH (05:29)
[2019-04-03 06:03] LABS: BUN/Creatinine Ratio 20; Blood Urea Nitrogen 14 mg/dL (7-17); Calcium 9.2 mg/dL (8.4-10.2); Hemolysis Index 7
[2019-04-03] MEDS: cefTRIAXone/NS 2 GM/100 ML 2 GM/100 ML BAG IV SCH (10:54)
[2019-04-03] MEDS: APIXABAN 5 MG TAB PO SCH (10:54)
[2019-04-03] MEDS: CYCLOBENZAPRINE 10 MG TAB PO PRN (11:08)
[2019-04-03 12:30] VITALS: BP 141/87
[2019-04-03] MEDS: ONDANSETRON 4 MG/2 ML INJ IV PRN (12:30)
--- NOTE | 2019-04-03 13:41 | Discharge Summary ---
Providers - Providers Date of Admission: 03/30/19 18:30 Date of discharge: 04/03/19 Attending physician: GO HOBSON 03/31/19 18:08 Consult to Physician [CONS] Routine Comment: Consulting Provider: FLAKITA PA Physician Instructions: Reason For Exam: COPD exacerbation with PE Primary care physician: [facility], Hospitalization Condition: Stable Hospital course: Discharge diagnosis: / Acute hypoxic respiratory failure due to COPD exacerbation and possible PE cont Supplemental oxygen, nebulizer therapy, pulse oximetry, noninvasive positive pressure ventilation as clinically indicated. counseled for Smoking cessation. IV steroid therapy, empiric IV antibiotic therapy. /Acute PE - intermediate probability on VQ scan, she is allergic to contrast dye - so CTA cannot be done - change heparin drip to eliquis - consulted pulmonary - LE venous doppler was negative - plan to treat her for 6 months for possible PE /COPD with acute exacerbation Supplemental oxygen, nebulizer therapy, pulse oximetry, IV steroid therapy, supportive care. 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 Disposition: [id number] HOME [facility] Time spent for discharge: 34 minutes Core Measure Documentation - Palliative Care Palliative Care/ Comfort Measures: Not Applicable - Core Measures Any of the following diagnoses?: none Exam - Physical Exam Narrative exam: General appearance: Present: mild distress, other (malnourished) - EENT Eyes: PERRL, EOM intact ENT: hearing intact, clear oral mucosa Ears: bilateral: normal - Neck Neck: supple, normal ROM - Respiratory Respiratory effort: normal Respiratory: bilateral: rhonchi, wheezing - Cardiovascular Rhythm: regular Heart Sounds: Present: S1 & S2. Absent: gallop, rub Extremities: pulses intact, No edema, normal color, Full ROM - Gastrointestinal General gastrointestinal: Present: soft, non-tender, non-distended, normal bowel sounds - Integumentary Integumentary: clear, warm, dry - Musculoskeletal Musculoskeletal: 1, strength equal bilaterally - Neurologic Neurologic: moves all extremities - Psychiatric Psychiatric: memory intact, appropriate mood/affect, intact judgment & insight - Constitutional Vitals: Temp Pulse Resp BP Pulse Ox 98.7 F 75 19 141/87 100 04/03/19 04:30 04/03/19 07:49 04/03/19 07:49 04/03/19 12:29 04/03/19 07:50 Plan Activity: advance as tolerated Weight Bearing Status: Weight Bear as Tolerated Diet: low fat, low salt Special Instructions: smoking cessation Follow up with: [facility] MD JESS [Primary Care Provider] - 7 Days DIANA ALCANTARA MD [Staff Physician] - 7 Days BONITA KILPATRICK MD [Staff Physician] - 7 Days BOB CAO MD [Staff Physician] - 7 Days Prescriptions: Apixaban [Eliquis] 10 mg PO Q12HR #90 tablet Butalb/Acetamin/Caff 50-325-40 [Fioricet 50-325-40] 1 tab PO Q4H PRN #10 tablet PRN Reason: Headache Prednisone [predniSONE 10 mg (6-Day Pack, 21 Tabs)] 10 mg PO .TAPER #1 tab.ds.pk Budesonide/Formoterol Fumarate [Symbicort 160-4.5 Mcg Inhaler] 10.2 gm IH BID #1 hfa.aer.ad Azithromycin [Zithromax Z-JENNIFER] 0 mg PO DAILY #5 tab
--- NOTE | 2019-04-03 14:14 | Progress Note ---
Assessment and Plan AE-COPD Tobacco use disorder Intermediate probability V/Q scan with left sided back pain h/o HBV - continue supplemental oxygen to keep O2 sats 88-90% - Bronchodilators - Systemic Steroids with slow taper - Glycemic control while on steroids, accuchecks; target BG < 180 mg/dl - NIPPV as indicated - Stress ulcer prophylaxis while on high dose steroids and NIPPV - Smoking cessation counselling done at the bedside fro 7 mins, behavior modification counselling - Nicotine withdrawal precautions - Chronic home medications as indicated - Analgesia, pain management per pain score - Dopplers negative; 2D ECHO without evidence of right heart strain; Patient has an intermediate probability VQ scan and clinical symptoms suggestive of PE; will recommend pre-contrast allergy preparation with CTA r/o PE In the interim start on therapeutic anticoagulation for PE) - ABG and CXR prn - outpatient pulmonary clinic f/up ..re-evaluate in am & prn Subjective Date of service: 04/03/19 Principal diagnosis: AECOPD; Tobb. use disorder; Intermediate prob V/Q scan & L. sided back pain Interval history: Patient is seen today for: AE-COPD; Tobacco use disorder; Intermediate probability V/Q scan with left sided back pain; h/o HBV Seen and examined at bedside; 24hour events reviewed; nursing and respiratory care staff consulted; no adverse overnight events reported to me; resting peacefully in bed; No N/V/F/C Objective Vital Signs - 12hr 04/03/19 04/03/19 04/03/19 04:30 07:49 07:50 Temperature 98.7 F Pulse Rate 66 Pulse Rate [ 75 Anterior Bilateral Throughout] Respiratory 16 Rate Respiratory 19 Rate [Anterior Bilateral Throughout] Blood Pressure 142/81 O2 Sat by Pulse 99 100 Oximetry 04/03/19 04/03/19 12:29 13:58 Temperature Pulse Rate Pulse Rate [ 82 Anterior Bilateral Throughout] Respiratory Rate Respiratory 19 Rate [Anterior Bilateral Throughout] Blood Pressure 141/87 O2 Sat by Pulse Oximetry Constitutional: alert, other (mild respiratory distress ,chronically ill looking AAW) Eyes: non-icteric ENT: oropharynx moist Neck: supple, no lymphadenopathy, no JVD Effort: mildly labored Ascultation: Bilateral: diminished breath sounds, other (prolonged exp phase) Percussion: Bilateral: not dull Cardiovascular: regular rate and rhythm, other (S1,S2) Gastrointestinal: normoactive bowel sounds, soft, non-tender, non-distended Integumentary: normal Extremities: no cyanosis, no edema, pink and warm, pulses normal Neurologic: normal mental status, non-focal exam, pupils equal and round, CN II-XII normal, motor strength normal and Psychiatric: mood appropriate, affect normal CBC and BMP: 04/02/19 06:48 04/03/19 05:23 ABG, PT/INR, D-dimer: ABG ABG pH 7.338 pH Units (7.350-7.450) L 03/30/19 20:35 ABG pCO2 40.1 mm Hg 03/30/19 20:35 ABG pO2 71.5 mm Hg (80.0-90.0) L 03/30/19 20:35 ABG O2 Saturation 94.6 % (95.0-99.0) L 03/30/19 20:35 PT/INR, D-dimer PT 13.2 Sec. (12.2-14.9) 03/31/19 14:57 INR 0.99 (0.87-1.13) 03/31/19 14:57 D-Dimer 157.97 ng/mlDDU (0-234) 03/30/19 17:30 Abnormal lab findings: Abnormal Labs 03/30/19 03/30/19 03/30/19 17:30 17:30 20:35 Lymph # 0.9 L Seg Neutrophils % 72.1 H APTT Heparin Anti-Xa Level ABG pH 7.338 L ABG pO2 71.5 L ABG O2 Saturation 94.6 L ABG Base Excess -4.4 L Oxyhemoglobin 91.7 L Carbon Dioxide 20 L BUN 18 H Glucose 130 H 03/31/19 04/02/19 04/03/19 14:57 21:29 05:23 Lymph # Seg Neutrophils % APTT 38.9 H Heparin Anti-Xa Level 2.00 H ABG pH ABG pO2 ABG O2 Saturation ABG Base Excess Oxyhemoglobin Carbon Dioxide BUN Glucose 120 H Chest x-ray: report reviewed Allied health notes reviewed: nursing
== END 2019-04-03 14:40 | disposition home health service (06) | DRG 175 ==
LOC: ED 16:19 → 3A 18:30
PROVIDERS: ADMIT Internal Medicine; ATTEND Internal Medicine
PROC: 4A033R1 Measurement of Arterial Saturation, Peripheral, Percutaneous Approach (ICD-10-PCS; principal; 2019-03-30)
DX: I26.99 Other pulmonary embolism without acute cor pulmonale (principal); J96.01 Acute respiratory failure with hypoxia; J44.1 Chronic obstructive pulmonary disease with (acute) exacerbation; J44.0 Chronic obstructive pulmonary disease with (acute) lower respiratory infection; B19.10 Unspecified viral hepatitis B without hepatic coma; F17.213 Nicotine dependence, cigarettes, with withdrawal; E44.1 Mild protein-calorie malnutrition; M19.90 Unspecified osteoarthritis, unspecified site; F17.210 Nicotine dependence, cigarettes, uncomplicated; J20.9 Acute bronchitis, unspecified; R51 Headache; Z68.27 Body mass index [BMI] 27.0-27.9, adult
CPT/HCPCS: 36415; 70551; 71045; 78582; 80048; 81001; 82140; 82803; 84134; 84484; 85014; 85018; 85025; 85049; 85379; 85520; 85610; 85730; 87040; 90686; 90732; 93005; 93010; 93306; 93970; 94640; 94760; 99406; G0378; A9540; A9558; J0456; J0696; J1644; J2060; J2270; J2405; J2765; J2920; J7030; J7050

== ENCOUNTER 2020-01-19 06:31 | Inpatient (IN) | payer OTHER, MEDICARE ==
[2020-01-19] MEDS ORDERED: ONDANSETRON 4 MG/2 ML INJ IV ONE (06:36)
[2020-01-19] MEDS ORDERED: LORazepam 2 MG/ML VIAL IV ONE (06:36)
[2020-01-19] MEDS ORDERED: ALBUTEROL 2.5 MG/3 ML NEBU IH ONE (06:38)
[2020-01-19] MEDS ORDERED: IPRATROPIUM 0.02% NEBU 2.5 ML IH ONE (06:38)
--- NOTE | 2020-01-19 06:46 | Emergency Department Report ---
ED Shortness of Breath HPI - General Stated Complaint: ROBERT Time Seen by Provider: 01/19/20 06:36 Source: patient, EMS, old records reviewed Mode of arrival: Stretcher Limitations: Other (severe respiratory distress) - History of Present Illness Initial Comments: Chief complaint: Shortness of breath Ms. Flores is a 64-year-old female with history of COPD, asthma, hepatitis B, pulmonary embolism on Eliquis who presents with severe shortness of breath, gradual onset this morning.. She arrived per EMS. Patient is unable to give much history due to work of breathing. She is mostly to her chest and severe pain. Patient is on home oxygen 3 L nasal cannula. Oxygen saturation per EMS 97%. She required CPAP support per EMS. She also received albuterol and 125 mg of Solu-Medrol in route. Additional information obtained from electronic medical record. Patient was admitted from January 09 to January 16. She was just discharged 2 days ago. MD Complaint: shortness of breath, chest pain -: Gradual, This morning Severity: severe Consistency: constant Improves With: bronchodilators, upright position, other (CPAP) Known History Of: COPD, asthma Context: other (Discharged 2 days ago) Associated Symptoms: chest pain Treatments Prior to Arrival: bronchodilator, NIPPV (CPAP), other (IV Solu- Medrol) - Related Data Home Oxygen Therapy: Yes Home Oxygen Amount: 3 Liters Home Medications Medication Instructions Recorded Confirmed Last Taken busPIRone [Buspar] 15 mg PO BID 12/06/19 01/09/20 Unknown Previous Rx's Medication Instructions Recorded Last Taken Type Acetaminophen [Acetaminophen TAB] 650 mg PO Q6HR PRN #30 tablet 08/24/18 Unknown Rx Butalb/Acetamin/Caff 50-325-40 1 tab PO Q4H PRN #10 tablet 04/03/19 Unknown Rx [Fioricet 50-325-40] Albuterol Mdi (or & Nicu Only) 2 puff IH QID PRN #8.5 gram 12/08/19 01/09/20 18 :00 Rx [ProAir HFA Inhaler] Apixaban [Eliquis] 5 mg PO Q12HR #60 tablet 12/08/19 Unknown Rx Benzonatate [Tessalon Perles] 100 mg PO Q8HR #20 capsule 12/08/19 01/10/20 Rx Fluticasone/Salmeterol [Advair 1 puff IH BID #1 disk.w.dev 12/08/19 Unknown Rx Diskus 250-50 mcg] Melatonin [Melatonin 10MG CAP] 10 mg PO QHS PRN #10 capsule 12/08/19 Unknown Rx Valsartan [Diovan] 80 mg PO DAILY #30 12/08/19 Unknown Rx Albuterol Sulfate [Albuterol 0.63% 0.63 mg IH TID PRN #120 ml 01/17/20 Unknown Rx NEBS] Budesonide [Pulmicort Flexhaler] 180 mcg IH BID 30 Days aer.pow.ba 01/17/20 Unknown Rx amLODIPine 5 mg PO QDAY #30 tablet 01/17/20 Unknown Rx predniSONE [Deltasone] 40 mg PO BID #20 tablet 01/17/20 Unknown Rx predniSONE [Deltasone] 40 mg PO DAILY #12 tab 01/17/20 Unknown Rx Allergies Allergy/AdvReac Type Severity Reaction Status Date / Time aspirin Allergy Unknown Verified 01/09/20 18:35 tramadol Allergy Unknown Verified 01/09/20 18:35 ibuprofen [From Motrin] AdvReac Nausea Verified 01/09/20 18:35 iv dye Allergy Hives Uncoded 01/09/20 18:35 ED Review of Systems ROS: Stated complaint: ROBERT Other details as noted in HPI Comment: Unobtainable due to pts medical conditions (Severe work of breathing) ED Past Medical Hx - Past Medical History Previous Medical History?: Yes Hx Hypertension: Yes Hx Congestive Heart Failure: No Hx Diabetes: Yes Hx Pulmonary Embolism: Yes Hx Liver Disease: Yes (Hep B) Hx Arthritis: Yes Hx Asthma: Yes Hx COPD: Yes Hx HIV: No - Surgical History Additional Surgical History: Tumor removal 2012 - Social History Smoking Status: Former Smoker - Medications Home Medications: Home Medications Medication Instructions Recorded Confirmed Last Taken Type Acetaminophen [Acetaminophen TAB] 650 mg PO Q6HR PRN #30 tablet 08/24/18 01/10/20 Unknown Rx Butalb/Acetamin/Caff 50-325-40 1 tab PO Q4H PRN #10 tablet 04/03/19 01/10/20 Unknown Rx [Fioricet 50-325-40] busPIRone [Buspar] 15 mg PO BID 12/06/19 01/09/20 Unknown History Albuterol Mdi (or & Nicu Only) 2 puff IH QID PRN #8.5 gram 12/08/19 01/09/20 01/09/20 18:00 Rx [ProAir HFA Inhaler] Apixaban [Eliquis] 5 mg PO Q12HR #60 tablet 12/08/19 01/09/20 Unknown Rx Benzonatate [Tessalon Perles] 100 mg PO Q8HR #20 capsule 12/08/19 01/10/20 01/10/20 Rx Fluticasone/Salmeterol [Advair 1 puff IH BID #1 disk.w.dev 12/08/19 01/09/20 Unknown Rx Diskus 250-50 mcg] Melatonin [Melatonin 10MG CAP] 10 mg PO QHS PRN #10 capsule 12/08/19 01/09/20 Unknown Rx Valsartan [Diovan] 80 mg PO DAILY #30 12/08/19 01/09/20 Unknown Rx Albuterol Sulfate [Albuterol 0.63% 0.63 mg IH TID PRN #120 ml 01/17/20 Unknown Rx NEBS] Budesonide [Pulmicort Flexhaler] 180 mcg IH BID 30 Days aer.pow.ba 01/17/20 Unknown Rx amLODIPine 5 mg PO QDAY #30 tablet 01/17/20 Unknown Rx predniSONE [Deltasone] 40 mg PO BID #20 tablet 01/17/20 Unknown Rx predniSONE [Deltasone] 40 mg PO DAILY #12 tab 01/17/20 Unknown Rx ED Physical Exam - General Limitations: Other (Severe work of breathing) General appearance: alert, in distress (Tearful, severe work of breathing, unable to speak sentences, accessory muscle use evident) - Head Head exam: Present: atraumatic, normocephalic - Eye Eye exam: Present: normal appearance - ENT ENT exam: Present: mucous membranes moist - Neck Neck exam: Present: normal inspection, full ROM - Respiratory Respiratory exam: Present: respiratory distress, wheezes, rhonchi, accessory muscle use, decreased breath sounds, prolonged expiratory. Absent: rales - Cardiovascular Cardiovascular Exam: Present: regular rate, normal rhythm, normal heart sounds. Absent: systolic murmur, diastolic murmur, rubs, gallop - GI/Abdominal GI/Abdominal exam: Present: soft, normal bowel sounds. Absent: distended, tenderness, guarding, rebound - Extremities Exam Extremities exam: Present: normal inspection - Neurological Exam Neurological exam: Present: alert, oriented X3 - Psychiatric Psychiatric exam: Present: normal affect, anxious - Skin Skin exam: Present: warm, dry, intact, normal color. Absent: rash ED Course Vital Signs 01/19/20 01/19/20 01/19/20 06:38 06:40 06:43 Temperature 98.5 F Pulse Rate 98 H 114 H Pulse Rate [ Throughout] Respiratory 28 H 22 16 Rate Respiratory Rate [ Throughout] Blood Pressure 142/95 O2 Sat by Pulse 100 100 Oximetry 01/19/20 01/19/20 01/19/20 06:45 06:53 07:01 Temperature Pulse Rate 107 H 100 H Pulse Rate [ 98 H Throughout] Respiratory 24 23 Rate Respiratory 28 H Rate [ Throughout] Blood Pressure 142/95 O2 Sat by Pulse 100 100 Oximetry 01/19/20 01/19/20 07:15 07:30 Temperature Pulse Rate 102 H 103 H Pulse Rate [ Throughout] Respiratory 20 36 H Rate Respiratory Rate [ Throughout] Blood Pressure 107/74 135/90 O2 Sat by Pulse 100 100 Oximetry - Reevaluation(s) Reevaluation #1: 01/19/20 07:30 Patient has improved. She is now speaking for sentences. Oxygen 100% on BiPAP with FiO2 40%. She still has anxiety and increased respiratory rate. She is moving air with expiratory wheezes On auscultation. She is now receiving morphine and Ativan for comfort. She has persistent chest pain. Reevaluation #2: 01/19/20 07:48 Patient resting comfortably after receiving morphine and Ativan. Reevaluation #3: 01/19/20 07:50 Repeat heart rate 98 bpm. Respiratory rate 18 breaths/min. Blood pressure 135/90. Oxygen saturation 100% on room air. ED Medical Decision Making - Lab Data Result diagrams: 01/19/20 06:59 01/19/20 06:59 - EKG Data 01/19/20 06:47 Sinus tachycardia rate 100 bpm left axis deviation no ST elevation normal T wave pattern EKG unchanged from 01/09/2020 - Radiology Data Radiology results: report reviewed I have reviewed chest radiograph finding: Imaging: No pneumothorax atelectasis bibasilar no linwood infiltrate hyperinflation - Medical Decision Making 1. Impression: Acute on chronic respiratory failure due to COPD. Immediately upon arrival patient was placed on BiPAP. She received continuous albuterol Atrovent treatment. She also received IV antibiotic. She received morphine for pain. She received IV Ativan for anxiolytic. 2. Chest pain: Pulmonary embolism unlikely with history of Eliquis use. ACS unlikely with recent negative work-up. No previous history of coronary artery disease. I suspect chest pain is musculoskeletal due to work of breathing. 3. Nonspecific leukocytosis without obvious source of infection most likely caused by recent steroid use. Patient is medicine hospital service in fair condition on BiPAP. Critical Care Time: Yes Critical care time in (mins) excluding proc time.: 40 Critical care attestation.: If time is entered above; I have spent that time in minutes in the direct care of this critically ill patient, excluding procedure time. 40 minutes of critical care time excluding procedures were used in the care of the patient. I came immediately to the bedside upon patient's arrival. I obtained history from EMS at the bedside. I discussed treatment plan with the nursing team members. I reviewed electronic record. Patient required multiple interventions and reassessments. I was concerned for imminent respiratory failure with airway compromise. ED Disposition Clinical Impression: COPD with acute exacerbation, Acute and chronic respiratory failure, Recurrent chest pain, History of pulmonary embolism, On home O2 Disposition: OP ADMIT IP TO THIS HOSP Is pt being admited?: Yes Does the pt Need Aspirin: No Condition: Fair Instructions: Chest Pain (ED), Chronic Obstructive Pulmonary Disease (ED)
[2020-01-19] MEDS ORDERED: cefTRIAXone/NS 2 GM/100 ML 2 GM/100 ML BAG IV SCH (06:52)
[2020-01-19] MEDS ORDERED: AZITHROMYCIN 500 MG in SODIUM CHLORIDE 0.9% 250ML 250 ML IV SCH (06:52)
[2020-01-19 07:12] LABS: Basophils % (Auto) 0.2 % (0.0-1.8); Eosinophils % (Auto) 0.2 % (0.0-4.3); Hematocrit 40.9 % (30.3-42.9); Hemoglobin 14.2 gm/dl (10.1-14.3); Lymphocytes # (Auto) 1.6 K/mm3 (1.2-5.4); Lymphocytes % (Auto) 8.4 % (13.4-35.0); Mean Corpuscular HGB Conc 35 % (30-34); Mean Corpuscular Volume 90 fl (79-97); Monocytes # (Auto) 1.7 K/mm3 (0.0-0.8); Monocytes % (Auto) 8.8 % (0.0-7.3); Platelet Count 258 K/mm3 (140-440); Red Blood Count 4.56 M/mm3 (3.65-5.03); Red Cell Distribution Width 13.5 % (13.2-15.2)
[2020-01-19] MEDS: MORPHINE 4 MG/1 ML INJ IV ONE ×3 (07:28→07:47)
[2020-01-19] MEDS ORDERED: MORPHINE 4 MG/1 ML INJ IV ONE (07:30)
[2020-01-19 07:32] LABS: Blood Urea Nitrogen 21 mg/dL (7-17); Calcium 8.8 mg/dL (8.4-10.2); Hemolysis Index 12
[2020-01-19 07:48] LABS: BUN/Creatinine Ratio 35
--- NOTE | 2020-01-19 08:35 | XRay Report ---
XR chest 1V ap INDICATION / CLINICAL INFORMATION: Dyspnea copd. COMPARISON: 01/14/2020. FINDINGS: SUPPORT DEVICES: None. HEART / MEDIASTINUM: No significant abnormality. LUNGS / PLEURA: Stable findings of emphysema. No focal consolidation. No pleural effusion. No pneumot horax. ADDITIONAL FINDINGS: No significant additional findings. IMPRESSION: Stable chest. No acute findings. Signer Name: Remberto Madden MD Signed: 01/19/2020 8:31 AM Workstation Name: [id number]
--- NOTE | 2020-01-19 08:57 | History and Physical Report ---
History of Present Illness Date of examination: 01/19/20 Date of admission: 01/19/20 08:22 Chief complaint: Worsening shortness of breath/acute exacerbation of COPD History of present illness: 64-year-old -Al[place]ian female patient well-known to our service, recently discharged 2 days ago with history of COPD home oxygen dependent .pulmonary embolism on anticoagulation, Chronic pain syndrome, diabetes and hypertension presented to the emergency room with worsening shortness of breath of 2 days duration, patient denies fever, no nausea vomiting or abdominal pain, complains of shortness of breath and some cough Patient is on 3 L of nasal cannula oxygen, received high-dose Solu-Medrol in route to the hospital by EMS as well as CPAP and nebulizers with mild improvement At the time of my evaluation patient is on BiPAP, in mild distress, complains of mild chest pain Chest x-ray no acute abnormality noted Past History Past Medical History: arthritis, COPD, hypertension, liver disease, pulmonary embolism Past Surgical History: Other (Tumor removal) Social history: smoking (Quit smoking), alcohol abuse, other (Marijuana use) Family history: hypertension Medications and Allergies Allergies Allergy/AdvReac Type Severity Reaction Status Date / Time aspirin Allergy Unknown Verified 01/09/20 18:35 tramadol Allergy Unknown Verified 01/09/20 18:35 ibuprofen [From Motrin] AdvReac Nausea Verified 01/09/20 18:35 iv dye Allergy Hives Uncoded 01/09/20 18:35 Home Medications Medication Instructions Recorded Confirmed Last Taken Type RX: Acetaminophen [Acetaminophen 650 mg PO Q6HR PRN #30 tablet 08/24/18 01/10/20 Unknown Rx TAB] RX: Butalb/Acetamin/Caff 50-325-40 1 tab PO Q4H PRN #10 tablet 04/03/19 01/10/20 Unknown Rx [Fioricet 50-325-40] RX: busPIRone [Buspar] 15 mg PO BID 12/06/19 01/09/20 Unknown History RX: Albuterol Mdi (or & Nicu Only) 2 puff IH QID PRN #8.5 gram 12/08/19 01/09/20 01/09/20 18:00 Rx [ProAir HFA Inhaler] RX: Apixaban [Eliquis] 5 mg PO Q12HR #60 tablet 12/08/19 01/09/20 Unknown Rx RX: Benzonatate [Tessalon Perles] 100 mg PO Q8HR #20 capsule 12/08/19 01/10/20 01/10/20 Rx RX: Fluticasone/Salmeterol [Advair 1 puff IH BID #1 disk.w.dev 12/08/19 01/09/20 Unknown Rx Diskus 250-50 mcg] RX: Melatonin [Melatonin 10MG CAP] 10 mg PO QHS PRN #10 capsule 12/08/19 01/09/20 Unknown Rx RX: Valsartan [Diovan] 80 mg PO DAILY #30 12/08/19 01/09/20 Unknown Rx Albuterol Sulfate [Albuterol 0.63% 0.63 mg IH TID PRN #120 ml 01/17/20 Unknown Rx NEBS] Budesonide [Pulmicort Flexhaler] 180 mcg IH BID 30 Days aer.pow.ba 01/17/20 Unknown Rx RX: amLODIPine 5 mg PO QDAY #30 tablet 01/17/20 Unknown Rx RX: predniSONE [Deltasone] 40 mg PO BID #20 tablet 01/17/20 Unknown Rx RX: predniSONE [Deltasone] 40 mg PO DAILY #12 tab 01/17/20 Unknown Rx Active Meds: Active Medications Ceftriaxone Sodium (Rocephin/Ns 2 Gm/100 Ml) 2 gm in 100 mls @ 200 mls/hr IV Q24HR MAMIE; Protocol Last Admin: 01/19/20 07:33 Dose: 200 mls/hr Documented by: Azithromycin 500 mg/ Sodium (Chloride) 250 mls @ 250 mls/hr IV Q24HR MAMIE; Joyce col Last Admin: 01/19/20 08:31 Dose: 250 mls/hr Documented by: Review of Systems Constitutional: fatigue, weakness, no weight loss, no weight gain, no fever, no chills Ears, nose, mouth and throat: no nasal congestion, no nasal discharge Cardiovascular: chest pain (Mild atypical chest pain), shortness of breath, no orthopnea, no palpitations Respiratory: shortness of breath, dyspnea on exertion, congestion, wheezing Gastrointestinal: no abdominal pain, no nausea, no vomiting Genitourinary Female: no flank pain, no dysuria Musculoskeletal: no myalgias, no arthritis Integumentary: no rash, no lesions Neurological: no paralysis, no weakness, no seizures, no syncope Psychiatric: no anxiety, no depression Endocrine: no cold intolerance, no heat intolerance, no polydipsia, no polyuria Hematologic/Lymphatic: no easy bruising, no easy bleeding Allergic/Immunologic: no urticaria, no allergic rhinitis Exam - Constitutional Vitals: Temp Pulse Resp BP Pulse Ox 98.5 F 103 H 36 H 135/90 100 01/19/20 06:40 01/19/20 07:30 01/19/20 07:30 01/19/20 07:30 01/19/20 07:30 General appearance: Present: mild distress, well-nourished, other (On BiPAP) - EENT Eyes: Present: PERRL, EOM intact. Absent: scleral icterus - Neck Neck: Present: supple, normal ROM - Respiratory Respiratory: bilateral: diminished, rhonchi, wheezing, negative: rales - Cardiovascular Rhythm: regular Heart Sounds: Present: S1 & S2 - Extremities Extremities: no ischemia, No edema - Abdominal General gastrointestinal: Present: soft, non-tender, non-distended, normal bowel sounds - Integumentary Integumentary: Present: clear, warm - Musculoskeletal Musculoskeletal: strength equal bilaterally, generalized weakness - Psychiatric Psychiatric: appropriate mood/affect, cooperative - Neurologic Neurologic: moves all extremities HEART Score - HEART Score Troponin: Troponin T < 0.010 ng/mL (0.00-0.029) 01/19/20 06:59 Results - Labs CBC & Chem 7: 01/19/20 06:59 01/19/20 06:59 Labs: Abnormal lab results 01/19/20 01/19/20 Range/Units 06:59 06:59 WBC 19.1 H (4.5-11.0) K/mm3 MCHC 35 H (30-34) % Lymph % (Auto) 8.4 L (13.4-35.0) % [place] % (Auto) 8.8 H (0.0-7.3) % [place] # (Auto) 1.7 H (0.0-0.8) K/mm3 Seg Neutrophils % 82.4 H (40.0-70.0) % Seg Neutrophils # 15.7 H (1.8-7.7) K/mm3 Sodium 136 L (137-145) mmol/L BUN 21 H (7-17) mg/dL Glucose 118 H (65-100) mg/dL Assessment and Plan --Acute on chronic hypoxic respiratory failure; Requiring BiPAP, patient has home oxygen Oxygen titrate O2 sats to more than 90%, BiPAP as needed Nebulizers IV steroids IV antibiotics Supportive care --Acute exacerbation of COPD; Oxygen, BiPAP as needed, nebulizers IV steroids, IV antibiotics, inhalation steroids Supportive care --Home oxygen dependent; Continue nebulizers IV steroids IV antibiotics inhalation steroids BiPAP as needed --History of PE; On chronic anticoagulation with Eliquis Oxygen titrate O2 sats to more than 90% Continue Eliquis --Atypical chest pain; Probably secondary to respiratory symptoms First set of cardiac enzymes negative Serial cardiac enzymes Recent echo normal EF Cardiology consult if needed --Hypertension; Moderate control, resume home antihypertensives As needed medications --DVT prophylaxis; Lovenox We will closely monitor the patient and adjust management as needed
[2020-01-19] MEDS ORDERED: ALBUTEROL 2.5 MG/3 ML NEBU IH PRN (09:02)
[2020-01-19] MEDS ORDERED: methylPREDNISolone Sod Suc 500 MG in SODIUM CHLORIDE 0.9% 100 ML IV ONE ×2 (09:03→10:30)
[2020-01-19] MEDS ORDERED: methylPREDNISolone Sod Succinate 125 MG/2 ML INJ ONE (09:58)
[2020-01-19] MEDS: busPIRone 10 MG TAB PO SCH ×2 (10:00→21:51)
[2020-01-19] MEDS: VALSARTAN 40 MG TAB PO SCH (10:22)
[2020-01-19] MEDS: amLODIPine 5 MG TAB PO SCH (10:22)
[2020-01-19] MEDS: APIXABAN 5 MG TAB PO SCH ×2 (11:00→21:51)
[2020-01-19] MEDS ORDERED: IPRATROPIUM/ALBUTEROL SULFATE 3 ML AMPUL.NEB IH ONE ×2 (12:59→16:38)
[2020-01-19] MEDS: IPRATROPIUM/ALBUTEROL SULFATE 3 ML AMPUL.NEB IH SCH ×3 (13:10→22:10)
[2020-01-19] MEDS ORDERED: MORPHINE 2 MG/1 ML INJ ONE (13:38)
[2020-01-19] MEDS ORDERED: BENZONATATE 100 MG CAP PO ONE (13:39)
[2020-01-19] MEDS: MORPHINE 2 MG/1 ML INJ IV PRN ×2 (13:45→20:12)
[2020-01-19] MEDS: BENZONATATE 100 MG CAP PO SCH ×2 (13:47→21:52)
[2020-01-19] MEDS: methylPREDNISolone Sod Succinate 125 MG/2 ML INJ IV SCH ×2 (13:48→21:52)
[2020-01-19] MEDS ORDERED: NON-FORMULARY EACH (Melatonin [Melatonin 10mg Cap] 10 MG) PO PRN (15:35)
[2020-01-19] MEDS: BUTALB/ACETAMINOPHEN/CAFFEINE TAB PO PRN (15:38)
[2020-01-19] MEDS ORDERED: oxyCODONE /ACETAMINOPHEN 5-325MG TAB ONE (16:52)
[2020-01-19] MEDS: oxyCODONE /ACETAMINOPHEN 5-325MG TAB PO PRN (16:54)
[2020-01-19] MEDS: MELATONIN 5 MG TAB PO PRN (21:51)
[2020-01-19] MEDS: BUDESONIDE 0.5 MG/2 ML NEBU IH SCH (22:10)
[2020-01-20] MEDS: IPRATROPIUM/ALBUTEROL SULFATE 3 ML AMPUL.NEB IH SCH ×6 (01:24→22:18)
[2020-01-20] MEDS: oxyCODONE /ACETAMINOPHEN 5-325MG TAB PO PRN ×3 (01:47→17:00)
[2020-01-20] MEDS: MORPHINE 2 MG/1 ML INJ IV PRN (03:48)
[2020-01-20] MEDS: BENZONATATE 100 MG CAP PO SCH ×3 (05:13→22:14)
[2020-01-20] MEDS: methylPREDNISolone Sod Succinate 125 MG/2 ML INJ IV SCH ×3 (05:13→22:12)
[2020-01-20 05:51] LABS: Hematocrit 37.8 % (30.3-42.9); Hemoglobin 12.8 gm/dl (10.1-14.3); Mean Corpuscular HGB Conc 34 % (30-34); Mean Corpuscular Volume 91 fl (79-97); Platelet Count 212 K/mm3 (140-440); Red Blood Count 4.14 M/mm3 (3.65-5.03); Red Cell Distribution Width 13.9 % (13.2-15.2)
[2020-01-20 06:42] LABS: Band Neutrophils # (Manual) 0.5 K/mm3; Basophils % (Manual) 0 % (0.0-1.8); Eosinophils % (Manual) 0 % (0.0-4.3); Total Cells Counted 100
[2020-01-20 06:43] LABS: Platelet Estimate Consistent w Auto; Target Cells Few
[2020-01-20] MEDS: HYDROmorphone 1 MG/1 ML INJ IV PRN ×3 (09:10→22:08)
[2020-01-20] MEDS: BUDESONIDE 0.5 MG/2 ML NEBU IH SCH ×2 (09:16→22:18)
[2020-01-20] MEDS: guaiFENesin DM 200/20 MG ORAL LIQD 10 ML PO PRN ×3 (10:23→22:11)
[2020-01-20] MEDS: busPIRone 10 MG TAB PO SCH ×2 (10:25→22:14)
[2020-01-20] MEDS: APIXABAN 5 MG TAB PO SCH ×2 (10:25→22:14)
[2020-01-20] MEDS: amLODIPine 5 MG TAB PO SCH (10:26)
[2020-01-20] MEDS: VALSARTAN 40 MG TAB PO SCH (10:27)
[2020-01-20] MEDS: BUTALB/ACETAMINOPHEN/CAFFEINE TAB PO PRN (13:26)
--- NOTE | 2020-01-20 18:54 | Progress Note ---
Assessment and Plan Assessment and plan: --Acute on chronic hypoxic respiratory failure; Requiring BiPAP, patient has home oxygen Oxygen titrate O2 sats to more than 90%, BiPAP as needed Nebulizers IV steroids IV antibiotics Supportive care --Acute exacerbation of COPD; Oxygen, BiPAP as needed, nebulizers IV steroids, IV antibiotics, inhalation steroids Supportive care --Home oxygen dependent; Continue nebulizers IV steroids IV antibiotics inhalation steroids BiPAP as needed --History of PE; On chronic anticoagulation with Eliquis Oxygen titrate O2 sats to more than 90% Continue Eliquis --Atypical chest pain; Probably secondary to respiratory symptoms First set of cardiac enzymes negative Serial cardiac enzymes Recent echo normal EF Cardiology consult if needed --Hypertension; Moderate control, resume home antihypertensives As needed medications --DVT prophylaxis; Lovenox We will closely monitor the patient and adjust management as needed History Interval history: I have seen and examined the patient at the bedside this morning Patient's chart and medications reviewed Patient had an episode of acute respiratory distress and severe anxiety Code met was called, patient was resuscitated with nebulizers Anxiety and pain medications Patient feels slightly better Hospitalist Physical - Constitutional Vitals: Temp Pulse Resp BP Pulse Ox 98.1 F 88 20 128/76 98 01/20/20 15:24 01/20/20 17:34 01/20/20 17:34 01/20/20 15:24 01/20/20 15:24 General appearance: Present: mild distress, well-nourished, other (On BiPAP) - EENT Eyes: Present: PERRL, EOM intact - Neck Neck: Present: supple, normal ROM - Respiratory Respiratory effort: normal Respiratory: bilateral: diminished, wheezing, negative: rales, rhonchi - Cardiovascular Rhythm: regular Heart Sounds: Present: S1 & S2 - Extremities Extremities: no ischemia, No edema - Abdominal General gastrointestinal: soft, non-tender, non-distended, normal bowel sounds - Integumentary Integumentary: Present: clear, warm - Psychiatric Psychiatric: cooperative, other (Very anxious) - Neurologic Neurologic: moves all extremities HEART Score - HEART Score Troponin: Troponin T < 0.010 ng/mL (0.00-0.029) 01/19/20 06:59 Results - Labs CBC & Chem 7: 01/20/20 05:27 01/19/20 06:59 Labs: Laboratory Last Values WBC 22.9 K/mm3 (4.5-11.0) H 01/20/20 05:27 RBC 4.14 M/mm3 (3.65-5.03) 01/20/20 05:27 Hgb 12.8 gm/dl (10.1-14.3) 01/20/20 05:27 Hct 37.8 % (30.3-42.9) 01/20/20 05:27 MCV 91 fl (79-97) 01/20/20 05:27 MCH 31 pg (28-32) 01/20/20 05:27 MCHC 34 % (30-34) 01/20/20 05:27 RDW 13.9 % (13.2-15.2) 01/20/20 05:27 Plt Count 212 K/mm3 (140-440) 01/20/20 05:27 Lymph % (Auto) 8.4 % (13.4-35.0) L 01/19/20 06:59 [place] % (Auto) 8.8 % (0.0-7.3) H 01/19/20 06:59 Eos % (Auto) 0.2 % (0.0-4.3) 01/19/20 06:59 Baso % (Auto) 0.2 % (0.0-1.8) 01/19/20 06:59 Lymph # (Auto) 1.6 K/mm3 (1.2-5.4) 01/19/20 06:59 [place] # (Auto) 1.7 K/mm3 (0.0-0.8) H 01/19/20 06:59 Eos # (Auto) 0.0 K/mm3 (0.0-0.4) 01/19/20 06:59 Baso # (Auto) 0.0 K/mm3 (0.0-0.1) 01/19/20 06:59 Add Manual Diff Complete 01/20/20 05:27 Total Counted 100 01/20/20 05:27 Seg Neutrophils % 82.4 % (40.0-70.0) H 01/19/20 06:59 Seg Neuts % (Manual) 93.0 % (40.0-70.0) H 01/20/20 05:27 Band Neutrophils % 2.0 % 01/20/20 05:27 Lymphocytes % (Manual) 3.0 % (13.4-35.0) L 01/20/20 05:27 Reactive Lymphs % (Man) 0 % 01/20/20 05:27 Monocytes % (Manual) 2.0 % (0.0-7.3) 01/20/20 05:27 Eosinophils % (Manual) 0 % (0.0-4.3) 01/20/20 05:27 Basophils % (Manual) 0 % (0.0-1.8) 01/20/20 05:27 Metamyelocytes % 0 % 01/20/20 05:27 Myelocytes % 0 % 01/20/20 05:27 Promyelocytes % 0 % 01/20/20 05:27 Blast Cells % 0 % 01/20/20 05:27 Nucleated RBC % Not Reportable 01/20/20 05:27 Seg Neutrophils # 15.7 K/mm3 (1.8-7.7) H 01/19/20 06:59 Seg Neutrophils # Man 21.3 K/mm3 (1.8-7.7) H 01/20/20 05:27 Band Neutrophils # 0.5 K/mm3 01/20/20 05:27 Lymphocytes # (Manual) 0.7 K/mm3 (1.2-5.4) L 01/20/20 05:27 Abs React Lymphs (Man) 0.0 K/mm3 01/20/20 05:27 Monocytes # (Manual) 0.5 K/mm3 (0.0-0.8) 01/20/20 05:27 Eosinophils # (Manual) 0.0 K/mm3 (0.0-0.4) 01/20/20 05:27 Basophils # (Manual) 0.0 K/mm3 (0.0-0.1) 01/20/20 05:27 Metamyelocytes # 0.0 K/mm3 01/20/20 05:27 Myelocytes # 0.0 K/mm3 01/20/20 05:27 Promyelocytes # 0.0 K/mm3 01/20/20 05:27 Blast Cells # 0.0 K/mm3 01/20/20 05:27 WBC Morphology Not Reportable 01/20/20 05:27 Hypersegmented Neuts Not Reportable 01/20/20 05:27 Hyposegmented Neuts Not Reportable 01/20/20 05:27 Hypogranular Neuts Not Reportable 01/20/20 05:27 Smudge Cells Not Reportable 01/20/20 05:27 Toxic Granulation Not Reportable 01/20/20 05:27 Toxic Vacuolation Not Reportable 01/20/20 05:27 Dohle Bodies Not Reportable 01/20/20 05:27 Pelger-Huet Anomaly Not Reportable 01/20/20 05:27 Itz Rods Not Reportable 01/20/20 05:27 Platelet Estimate Consistent w auto 01/20/20 05:27 Clumped Platelets Not Reportable 01/20/20 05:27 Plt Clumps, EDTA Not Reportable 01/20/20 05:27 Large Platelets Not Reportable 01/20/20 05:27 Giant Platelets Not Reportable 01/20/20 05:27 Platelet Satelliting Not Reportable 01/20/20 05:27 Plt Morphology Comment Not Reportable 01/20/20 05:27 RBC Morphology Not Reportable 01/20/20 05:27 Dimorphic RBCs Not Reportable 01/20/20 05:27 Polychromasia Not Reportable 01/20/20 05:27 Hypochromasia Not Reportable 01/20/20 05:27 Poikilocytosis Not Reportable 01/20/20 05:27 Anisocytosis Not Reportable 01/20/20 05:27 Microcytosis Not Reportable 01/20/20 05:27 Macrocytosis Not Reportable 01/20/20 05:27 Spherocytes Not Reportable 01/20/20 05:27 Pappenheimer Bodies Not Reportable 01/20/20 05:27 Sickle Cells Not Reportable 01/20/20 05:27 Target Cells Few 01/20/20 05:27 Tear Drop Cells Not Reportable 01/20/20 05:27 Ovalocytes Not Reportable 01/20/20 05:27 Helmet Cells Not Reportable 01/20/20 05:27 Robles-[place] Bodies Not Reportable 01/20/20 05:27 Lagrange Rings Not Reportable 01/20/20 05:27 [place] Cells Not Reportable 01/20/20 05:27 Bite Cells Not Reportable 01/20/20 05:27 Crenated Cell Not Reportable 01/20/20 05:27 Elliptocytes Not Reportable 01/20/20 05:27 Acanthocytes (Spur) Not Reportable 01/20/20 05:27 Rouleaux Not Reportable 01/20/20 05:27 Hemoglobin C Crystals Not Reportable 01/20/20 05:27 Schistocytes Not Reportable 01/20/20 05:27 Malaria parasites Not Reportable 01/20/20 05:27 Isac Bodies Not Reportable 01/20/20 05:27 Hem Pathologist Commnt No 01/20/20 05:27 ABG pH 7.409 (7.320-7.450) 01/19/20 08:48 POC ABG pCO2 43.4 mmHg (32.0-48.0) 01/19/20 08:48 POC ABG pO2 142.8 mmHg (83-108) H 01/19/20 08:48 POC ABG HCO3 26.8 01/19/20 08:48 POC ABG Base Excess 1.3 01/19/20 08:48 ABG Hemoglobin 14.4 (12.0-17.5) 01/19/20 08:48 ABG Oxyhemoglobin 97.7 (94-98) 01/19/20 08:48 ABG Methemoglobin 0 (0.0-1.5) 01/19/20 08:48 ABG Sodium 134.0 mmol/L (136.0-145.0) L 01/19/20 08:48 ABG Potassium 4.6 mmol/L (3.40-4.50) H 01/19/20 08:48 ABG Chloride 100.0 mmol/L (98-107) 01/19/20 08:48 ABG Glucose 143 mg/dL (65-95) H 01/19/20 08:48 Carboxyhemoglobin 1.3 (0.5-1.5) 01/19/20 08:48 FiO2 40.0 01/19/20 08:48 Sodium 136 mmol/L (137-145) L 01/19/20 06:59 Potassium 4.4 mmol/L (3.6-5.0) 01/19/20 06:59 Chloride 99.9 mmol/L (98-107) 01/19/20 06:59 Carbon Dioxide 30 mmol/L (22-30) 01/19/20 06:59 Anion Gap 11 mmol/L 01/19/20 06:59 BUN 21 mg/dL (7-17) H 01/19/20 06:59 Creatinine 0.6 mg/dL (0.6-1.2) 01/19/20 06:59 Estimated GFR > 60 ml/min 01/19/20 06:59 BUN/Creatinine Ratio 35 % 01/19/20 06:59 Glucose 118 mg/dL (65-100) H 01/19/20 06:59 Calcium 8.8 mg/dL (8.4-10.2) 01/19/20 06:59 Troponin T < 0.010 ng/mL (0.00-0.029) 01/19/20 06:59 Arterial Blood Glucose 143 mg/dL (65-95) H 01/19/20 08:48 Arterial Blood Ionized Calcium 4.5 mg/dL (4.6-5.3) L 01/19/20 08:48 Nettles/IV: Voiding Method Toilet IV Catheter Type [Right INT / Saline Lock Forearm] IV Catheter Type [Left Hand] INT / Saline Lock Active Medications - Current Medications Current Medications: Generic Name Dose Route Start Last Admin Trade Name Freq PRN Reason Stop Dose Admin Acetaminophen/Butalbital/Caffeine 1 tab 01/19/20 08:57 01/20/20 13:26 Fioricet PO 1 tab Q4H PRN Administration Headache Albuterol 2.5 mg 01/19/20 09:02 Proventil IH Q4HRT PRN Shortness Of Breath Albuterol/Ipratropium 1 ampul 01/19/20 12:00 01/20/20 17:33 Duoneb *Not For Prn Use* IH 1 ampul Q4HRT MAMIE Administration Amlodipine Besylate 5 mg 01/19/20 10:00 01/20/20 10:26 Amlodipine PO 5 mg QDAY MAMIE Administration Apixaban 5 mg 01/19/20 10:00 01/20/20 10:25 Eliquis PO 5 mg Q12HR MAMIE Administration Protocol Benzonatate 100 mg 01/19/20 14:00 01/20/20 13:26 Tessalon Perles PO 100 mg Q8HR MAMIE Administration Budesonide 0.5 mg 01/19/20 20:00 01/20/20 09:16 Pulmicort IH 0.5 mg Q12HRT MAMIE Administration Buspirone HCl 15 mg 01/19/20 10:00 01/20/20 10:25 Buspar PO 15 mg BID MAMIE Administration Guaifenesin 20 ml 01/20/20 10:00 01/20/20 15:35 Guaifenesin Dm Syrup PO 20 ml Q4H PRN Administration Cough Hydromorphone HCl 0.5 mg 01/20/20 09:00 01/20/20 15:36 Dilaudid IV 0.5 mg Q6HR PRN Administration Pain , Severe (7-10) Levofloxacin 750 mg 01/21/20 10:00 Levaquin PO 01/23/20 10:01 Q24HR MAMIE Melatonin 10 mg 01/19/20 15:53 01/19/20 21:51 Melatonin PO 10 mg QHS PRN Administration Insomnia Methylprednisolone Sodium Succinate 60 mg 01/19/20 14:00 01/20/20 13:27 Solu-Medrol IV 60 mg Q8HR MAMIE Administration Oxycodone/Acetaminophen 1 tab 01/19/20 15:34 01/20/20 17:00 Percocet 5/325 PO 1 tab Q6H PRN Administration Pain, Moderate (4-6) Valsartan 80 mg 01/19/20 10:00 01/20/20 10:27 Diovan PO 80 mg DAILY MAMIE Administration
--- NOTE | 2020-01-20 18:57 | Event Note ---
Date: 01/20/20 Responded to code met this morning Patient was in acute respiratory distress with severe anxiety and tachypnea Respiratory therapist adjusted oxygen, received nebulizers and antianxiety and pain medications With mild improvement. Patient's medications optimized Advised BiPAP as needed, symptoms significantly improved Patient was reassured, and added low-dose anxiety medication We will consult psych if needed Plan of care reviewed with the patient and her nurse
[2020-01-20] MEDS ORDERED: ALPRAZolam 0.25 MG TAB PO PRN (19:00)
[2020-01-20] MEDS: MELATONIN 5 MG TAB PO PRN (22:14)
[2020-01-21] MEDS: IPRATROPIUM/ALBUTEROL SULFATE 3 ML AMPUL.NEB IH SCH ×5 (01:35→16:11)
[2020-01-21] MEDS: oxyCODONE /ACETAMINOPHEN 5-325MG TAB PO PRN ×2 (06:06→13:14)
[2020-01-21] MEDS: BENZONATATE 100 MG CAP PO SCH ×2 (06:06→13:14)
[2020-01-21] MEDS: methylPREDNISolone Sod Succinate 125 MG/2 ML INJ IV SCH ×2 (06:07→13:15)
[2020-01-21] MEDS: BUDESONIDE 0.5 MG/2 ML NEBU IH SCH (07:53)
[2020-01-21] MEDS: HYDROmorphone 1 MG/1 ML INJ IV PRN ×2 (08:42→14:42)
[2020-01-21] MEDS: guaiFENesin DM 200/20 MG ORAL LIQD 10 ML PO PRN (08:45)
[2020-01-21] MEDS ORDERED: levoFLOXacin 750 MG TAB PO SCH (10:00)
[2020-01-21] MEDS: amLODIPine 5 MG TAB PO SCH (10:19)
[2020-01-21] MEDS: busPIRone 10 MG TAB PO SCH (10:19)
[2020-01-21] MEDS: APIXABAN 5 MG TAB PO SCH (10:19)
[2020-01-21] MEDS: VALSARTAN 40 MG TAB PO SCH (10:21)
[2020-01-21] MEDS: BUTALB/ACETAMINOPHEN/CAFFEINE TAB PO PRN (11:22)
[2020-01-21 14:00] VITALS: BP 131/80
--- NOTE | 2020-01-21 15:01 | Discharge Summary ---
Providers - Providers Date of Admission: 01/19/20 15:35 Date of discharge: 01/21/20 Attending physician: EMANUEL MINA Primary care physician: [employer] Hospitalization Reason for admission: Acute exacerbation COPD/acute on chronic hypoxic respiratory failure Condition: Stable Pertinent studies: Chest x-ray; no acute abnormality Hospital course: 64-year-old -[place] female patient well-known to our service, recently discharged 2 days ago with history of COPD home oxygen dependent pulmonary embolism on anticoagulation, Chronic pain syndrome, diabetes and hypertension was admitted through the emergency room with worsening shortness of breath and was noted to be in acute on chronic hypoxic respiratory failure requiring BiPAP.Patient was appropriately managed with oxygen titrate O2 sats to more than 90%, BiPAP as needed, IV steroids, IV antibiotics, nebulizers, inhalation steroids Resumed all her home medications. Patient also had severe anxiety during the hospital stay, continued her antianxiety medication, Symptoms gradually but significantly improved Today patient is comfortable no new complaints vital signs stable Physical examination prior to discharge is unremarkable, pulmonary symptoms significantly improved Patient is hemodynamically and clinically stable at discharge DC with tapering dose of steroids, nebulizers and antibiotics. Patient strongly advised to comply with medications diet, advised to continue home oxygen as before Stable at discharge Discharge diagnosis; --Acute on chronic hypoxic respiratory failure;Requiring BiPAP, --Acute exacerbation of COPD; --Home oxygen dependent; --History of PE;On chronic anticoagulation with Eliquis --Atypical chest pain; resolved --Hypertension; --DVT prophylaxis; received Lovenox Stable at discharge Disposition: DC-01 TO HOME OR SELFCARE Time spent for discharge: 32min Core Measure Documentation - Palliative Care Palliative Care/ Comfort Measures: Not Applicable - Core Measures Any of the following diagnoses?: none Exam - Constitutional Vitals: Temp Pulse Resp BP Pulse Ox 98.8 F 85 22 131/80 96 01/21/20 11:30 01/21/20 12:49 01/21/20 12:49 01/21/20 11:30 01/21/20 11:30 General appearance: Present: no acute distress, well-nourished - EENT Eyes: Present: PERRL, EOM intact - Neck Neck: Present: supple, normal ROM - Respiratory Respiratory effort: normal Respiratory: bilateral: diminished, negative: rales, rhonchi, wheezing - Cardiovascular Rhythm: regular Heart Sounds: Present: S1 & S2 - Extremities Extremities: no ischemia, No edema - Abdominal General gastrointestinal: Present: soft, non-tender, non-distended, normal bowel sounds - Integumentary Integumentary: Present: clear, warm - Musculoskeletal Musculoskeletal: strength equal bilaterally - Psychiatric Psychiatric: appropriate mood/affect, cooperative - Neurologic Neurologic: moves all extremities Plan Activity: advance as tolerated Diet: other (Cardiac diet) Additional Instructions: Continue home oxygen as before. advised to comply with medications, Diet and follow-up visits Follow up with: PRIMARY CARE, [Primary Care Provider] - 3-5 Days FLAKITA PA MD [Staff Physician] - 7 Days Prescriptions: Albuterol Sulfate [Albuterol 0.63% NEBS] 0.63 mg IH TID PRN #120 ml PRN Reason: Wheezing Apixaban [Eliquis] 5 mg PO Q12HR #60 tablet guaiFENesin DM [Guaifenesin Dm Syrup] 10 ml PO Q4H PRN 14 Days oral.liqd PRN Reason: Cough levoFLOXacin [Levaquin TAB] 750 mg PO Q24HR #4 tablet oxyCODONE /ACETAMINOPHEN [Percocet 5/325 mg] 1 tab PO BID PRN #8 tablet PRN Reason: Pain, Moderate (4-6) Budesonide [Pulmicort Flexhaler] 180 mcg IH BID 30 Days aer.[email or web address]
== END 2020-01-21 16:51 | disposition home or self-care (01) | DRG 189 ==
LOC: ED 06:31 → 4A 08:22 → OBSVTOIN 15:35 → 4A 17:32
PROVIDERS: ADMIT Internal Medicine; ATTEND Internal Medicine
PROC: 4A033R1 Measurement of Arterial Saturation, Peripheral, Percutaneous Approach (ICD-10-PCS; principal; 2020-01-19)
PROC: 5A09357 Assistance with Respiratory Ventilation, Less than 24 Consecutive Hours, Continuous Positive Airway Pressure (ICD-10-PCS; 2020-01-19)
PROC: 5A09357 Assistance with Respiratory Ventilation, Less than 24 Consecutive Hours, Continuous Positive Airway Pressure (ICD-10-PCS; 2020-01-20)
DX: J96.21 Acute and chronic respiratory failure with hypoxia (principal); J44.1 Chronic obstructive pulmonary disease with (acute) exacerbation; Z86.711 Personal history of pulmonary embolism; Z88.6 Allergy status to analgesic agent; Z88.5 Allergy status to narcotic agent; Z88.8 Allergy status to other drugs, medicaments and biological substances; I10 Essential (primary) hypertension; M19.90 Unspecified osteoarthritis, unspecified site; Z87.891 Personal history of nicotine dependence; E11.9 Type 2 diabetes mellitus without complications; Z82.49 Family history of ischemic heart disease and other diseases of the circulatory system; R07.89 Other chest pain
CPT/HCPCS: 36415; 71045; 80048; 82805; 82962; 84484; 85007; 85025; 93005; 94640; 94644; 94660; 96365; 96375; 96376; G0378; J0456; J0696; J1170; J1956; J2060; J2270; J2405; J2930; J7050

== ENCOUNTER 2020-07-04 17:19 | Emergency (ER) | payer MEDICARE ==
[2020-07-04 18:01] VITALS: BP 161/107
[2020-07-04] MEDS ORDERED: ACETAMINOPHEN 500 MG TAB PO ONE (18:49)
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
== END 2020-07-04 20:55 | disposition home or self-care (01) ==
LOC: ED 17:19
DX: S16.1XXA Strain of muscle, fascia and tendon at neck level, initial encounter (principal); M19.012 Primary osteoarthritis, left shoulder; M17.12 Unilateral primary osteoarthritis, left knee; F17.200 Nicotine dependence, unspecified, uncomplicated; J44.9 Chronic obstructive pulmonary disease, unspecified; I10 Essential (primary) hypertension; E11.9 Type 2 diabetes mellitus without complications; M19.90 Unspecified osteoarthritis, unspecified site; Z79.899 Other long term (current) drug therapy; Z88.8 Allergy status to other drugs, medicaments and biological substances; Z91.041 Radiographic dye allergy status; Z98.890 Other specified postprocedural states; V49.59XA Passenger injured in collision with other motor vehicles in traffic accident, initial encounter; Y92.410 Unspecified street and highway as the place of occurrence of the external cause; Y93.89 Activity, other specified; Y99.8 Other external cause status
CPT/HCPCS: 72125

== ENCOUNTER 2020-11-19 20:53 | Inpatient (IN) | payer MEDICARE ==
[2020-11-19] MEDS ORDERED: MORPHINE 4 MG/1 ML INJ IV ONE (21:38)
[2020-11-19] MEDS ORDERED: PANTOPRAZOLE 40 MG INJ IV ONE (21:38)
[2020-11-19] MEDS ORDERED: ONDANSETRON 4 MG/2 ML INJ IV ONE (21:38)
[2020-11-19] MEDS ORDERED: IPRATROPIUM/ALBUTEROL SULFATE 3 ML AMPUL.NEB IH ONE (21:39)
--- NOTE | 2020-11-19 21:47 | Emergency Department Report ---
ED GI Bleed HPI - General Chief complaint: GI Bleed Stated complaint: GI BLEED Time Seen by Provider: 11/19/20 21:24 Source: EMS Mode of arrival: Stretcher Limitations: No Limitations - History of Present Illness Initial comments: 65-year-old female with a past medical history of hepatitis B, asthma, pulmonary embolism diagnosed here March 2019 currently on Eliquis, COPD with 4 L home oxygen use presents to the hospital complaining of rectal bleeding since this a.m. Patient has had 5 episodes of bright red blood and dark red blood with bowel movement with and without stool. Patient describes it as "peeing blood from her rectum." Last dose of Eliquis for 5 hours prior to arrival. Patient also having intermittent epigastric pain radiating to the entire abdomen and left-sided chest pain. Pain is moderate to severe in intensity, sharp, worse in the abdomen with palpation, no alleviating factors. Positive associated nausea without vomiting. Patient admits to some mild marijuana use, drinking beer, and took an Aleve today in an attempt to alleviate the pain. 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 Last colonoscopy 2 to 3 years ago was normal as per patient. No previous history of GI bleed. EMS provided morphine 2 mg IV and normal saline 500 mL. No reports of hypotension in route to the hospital. Room air saturation currently 99%. Patient is not immunized for Covid. Severity scale (0 -10): 7 - Related Data Home Medications Medication Instructions Recorded Confirmed Last Taken busPIRone [Buspar] 10 mg PO BID 12/06/19 05/30/20 2 Days Ago ~05/28/20 DULoxetine [Cymbalta] 30 mg PO DAILY 02/06/20 05/30/20 2 Days Ago ~05/28/20 Diclofenac 1% [Diclofenac 1% 2 gram TP Q6HR 02/06/20 05/30/20 2 Days Ago topical gel] ~05/28/20 Esomeprazole Magnesium [NexIUM] 40 mg PO QDAY 02/06/20 05/30/20 2 Days Ago ~05/28/20 Gabapentin 300 mg PO Q8HR 02/06/20 05/30/20 2 Days Ago ~05/28/20 Glecaprevir/Pibrentasvir(Nf) 1 each PO BID 05/30/20 05/30/20 2 Days Ago [Mavyret 100-40 mg (Nf)] ~05/28/20 amLODIPine 5 mg PO DAILY 05/30/20 05/30/20 Unknown Previous Rx's Medication Instructions Recorded Last Taken Type Acetaminophen [Acetaminophen TAB] 650 mg PO Q6HR PRN #30 tablet 08/24/18 02/06/20 Rx Fluticasone/Salmeterol [Advair 1 puff IH BID #1 disk.w.dev 12/08/19 2 Days Ago Rx Diskus 250-50 mcg] ~05/28/20 Melatonin [Melatonin 10MG CAP] 10 mg PO QHS PRN #10 capsule 12/08/19 2 Days Ago Rx ~05/28/20 Apixaban [Eliquis] 5 mg PO Q12HR #60 tablet 01/21/20 2 Days Ago Rx ~05/28/20 Cetirizine HCl [ZyrTEC 10mg cap] 10 mg PO DAILY #10 capsule 06/01/20 Unknown Rx Furosemide [Lasix] 20 mg PO QDAY #10 tablet 06/01/20 Unknown Rx Prednisone [predniSONE 10 mg 10 mg PO .TAPER #1 tab.ds.pk 06/01/20 Unknown Rx (6-Day Pack, 21 Tabs)] oxyCODONE /ACETAMINOPHEN [Percocet 1 tab PO BID PRN #8 tablet 06/01/20 Unknown Rx 5/325 mg] Cyclobenzaprine [Flexeril] 10 mg PO TID PRN #10 tablet 07/04/20 Unknown Rx Allergies Allergy/AdvReac Type Severity Reaction Status Date / Time aspirin Allergy Unknown Verified 07/04/20 18:01 tramadol Allergy Unknown Verified 07/04/20 18:01 ibuprofen [From Motrin] AdvReac Nausea Verified 07/04/20 18:01 naproxen [From Aleve] AdvReac Unknown Verified 07/04/20 18:01 iv dye Allergy Hives Uncoded 07/04/20 18:01 ED Review of Systems ROS: Stated complaint: GI BLEED Other details as noted in HPI Comment: All other systems reviewed and negative ED Past Medical Hx - Past Medical History Hx Hypertension: Yes Hx Congestive Heart Failure: No Hx Diabetes: Yes Hx Pulmonary Embolism: Yes Hx Liver Disease: Yes (Hep B) Hx Arthritis: Yes Hx Asthma: Yes Hx COPD: Yes Hx HIV: No - Surgical History Past Surgical History?: Yes Additional Surgical History: Tumor removal 2012 - History Smoking Status: Current Some Day Smoker - Medications Home Medications: Home Medications Medication Instructions Recorded Confirmed Last Taken Type Acetaminophen [Acetaminophen TAB] 650 mg PO Q6HR PRN #30 tablet 08/24/18 05/30/20 02/06/20 Rx busPIRone [Buspar] 10 mg PO BID 12/06/19 05/30/20 2 Days Ago History ~05/28/20 Fluticasone/Salmeterol [Advair 1 puff IH BID #1 disk.w.dev 12/08/19 05/30/20 2 Days Ago Rx Diskus 250-50 mcg] ~05/28/20 Melatonin [Melatonin 10MG CAP] 10 mg PO QHS PRN #10 capsule 12/08/19 05/30/20 2 Days Ago Rx ~05/28/20 Apixaban [Eliquis] 5 mg PO Q12HR #60 tablet 01/21/20 05/30/20 2 Days Ago Rx ~05/28/20 DULoxetine [Cymbalta] 30 mg PO DAILY 02/06/20 05/30/20 2 Days Ago History ~05/28/20 Diclofenac 1% [Diclofenac 1% 2 gram TP Q6HR 02/06/20 05/30/20 2 Days Ago History topical gel] ~05/28/20 Esomeprazole Magnesium [NexIUM] 40 mg PO QDAY 02/06/20 05/30/20 2 Days Ago History ~05/28/20 Gabapentin 300 mg PO Q8HR 02/06/20 05/30/20 2 Days Ago History ~05/28/20 Glecaprevir/Pibrentasvir(Nf) 1 each PO BID 05/30/20 05/30/20 2 Days Ago History [Mavyret 100-40 mg (Nf)] ~05/28/20 amLODIPine 5 mg PO DAILY 05/30/20 05/30/20 Unknown History Cetirizine HCl [ZyrTEC 10mg cap] 10 mg PO DAILY #10 capsule 06/01/20 Unknown Rx Furosemide [Lasix] 20 mg PO QDAY #10 tablet 06/01/20 Unknown Rx Prednisone [predniSONE 10 mg 10 mg PO .TAPER #1 tab.ds.pk 06/01/20 Unknown Rx (6-Day Pack, 21 Tabs)] oxyCODONE /ACETAMINOPHEN [Percocet 1 tab PO BID PRN #8 tablet 06/01/20 Unknown Rx 5/325 mg] Cyclobenzaprine [Flexeril] 10 mg PO TID PRN #10 tablet 07/04/20 Unknown Rx ED Physical Exam - General Limitations: No Limitations - Other Other exam information: General: Moderate distress secondary to pain Head: Atraumatic Eyes: normal appearance ENT: Moist mucous membranes Neck: Normal appearance, no midline tenderness Chest: Bilateral wheezing with mild tachypnea CV: Regular rate and rhythm, no chest wall tenderness Abdomen: Soft, normal bowel sounds, horizontal right lower quadrant scar, generalized abdominal tenderness greatest in the epigastrium Back: Normal inspection Extremity: Normal inspection, full range of motion no calf tenderness or leg edema Neuro: Alert O x 3, no facial asymmetry, speech clear, no gross motor sensory deficit Psych: Appropriate behavior Skin: No rash ED Course Vital Signs 11/19/20 11/19/20 11/19/20 21:23 21:31 21:45 Temperature 98.2 F Pulse Rate 107 H 106 H 99 H Pulse Rate [ Bilateral Throughout] Respiratory 23 15 15 Rate Respiratory Rate [Bilateral Throughout] Blood Pressure 145/87 145/87 Blood Pressure [Right] O2 Sat by Pulse 100 99 99 Oximetry 11/19/20 11/19/20 11/19/20 21:49 22:00 22:01 Temperature Pulse Rate 118 H 110 H Pulse Rate [ 97 H Bilateral Throughout] Respiratory 25 H 27 H Rate Respiratory 28 H Rate [Bilateral Throughout] Blood Pressure 124/85 Blood Pressure 124/69 [Right] O2 Sat by Pulse 99 100 Oximetry 11/19/20 11/19/20 11/19/20 22:15 22:31 22:47 Temperature Pulse Rate 118 H 117 H Pulse Rate [ Bilateral Throughout] Respiratory 37 H 25 H Rate Respiratory Rate [Bilateral Throughout] Blood Pressure 154/90 138/89 138/89 Blood Pressure [Right] O2 Sat by Pulse 100 98 100 Oximetry 11/19/20 11/19/20 11/19/20 23:01 23:15 23:31 Temperature Pulse Rate 96 H 99 H 116 H Pulse Rate [ Bilateral Throughout] Respiratory 18 25 H 19 Rate Respiratory Rate [Bilateral Throughout] Blood Pressure 126/80 120/77 126/93 Blood Pressure [Right] O2 Sat by Pulse 99 99 Oximetry 11/19/20 23:45 Temperature Pulse Rate 99 H Pulse Rate [ Bilateral Throughout] Respiratory 18 Rate Respiratory Rate [Bilateral Throughout] Blood Pressure 128/76 Blood Pressure [Right] O2 Sat by Pulse 100 Oximetry - Reevaluation(s) Reevaluation #1: 11/19/20 22:19 RN reports blood bowel movement aprox 400ml 11/19/20 23:57 Nurse informed me that patient had 2 more bloody stools. No signs of hy potension or tachycardia at this time. - Consultations Consultation #1: 11/20/20 00:[address] Stephenson on-call GI specialist. Recommends clear liquid diet. Recommend to follow H&H. Will consult with probable plan to perform colonoscopy on November 21 as long as patient remains stable ED Medical Decision Making - Lab Data Result diagrams: 11/19/20 21:40 11/19/20 23:05 Lab Results 11/19/20 11/19/20 11/19/20 Range/Units 21:40 21:40 21:40 WBC 5.3 (4.5-11.0) K/mm3 RBC 4.12 (3.65-5.03) M/mm3 Hgb 12.9 (10.1-14.3) gm/dl Hct 37.0 (30.3-42.9) % MCV 90 (79-97) fl MCH 31 (28-32) pg MCHC 35 H (30-34) % RDW 16.1 H (13.2-15.2) % Plt Count 188 (140-440) K/mm3 Lymph % (Auto) 43.3 H (13.4-35.0) % Eaton % (Auto) 10.3 H (0.0-7.3) % Eos % (Auto) 3.2 (0.0-4.3) % Baso % (Auto) 1.1 (0.0-1.8) % Lymph # (Auto) 2.3 (1.2-5.4) K/mm3 Eaton # (Auto) 0.5 (0.0-0.8) K/mm3 Eos # (Auto) 0.2 (0.0-0.4) K/mm3 Baso # (Auto) 0.1 (0.0-0.1) K/mm3 Seg Neutrophils % 42.1 (40.0-70.0) % Seg Neutrophils # 2.3 (1.8-7.7) K/mm3 PT 15.8 H (12.2-14.9) Sec. INR 1.21 H (0.87-1.13) APTT 31.9 (24.2-36.6) Sec. D-Dimer (0-234) ng/mlDDU Sodium TNR Potassium TNR Chloride TNR Carbon Dioxide TNR Anion Gap TNR BUN TNR Creatinine TNR Estimated GFR TNR BUN/Creatinine Ratio TNR Glucose TNR Calcium TNR Total Bilirubin TNR AST TNR ALT TNR Alkaline Phosphatase TNR Troponin T TNR Total Protein TNR Albumin TNR Albumin/Globulin Ratio TNR Blood Type Antibody Screen 11/19/20 11/19/20 11/19/20 Range/Units 21:40 23:05 23:05 WBC (4.5-11.0) K/mm3 RBC (3.65-5.03) M/mm3 Hgb (10.1-14.3) gm/dl Hct (30.3-42.9) % MCV (79-97) fl MCH (28-32) pg MCHC (30-34) % RDW (13.2-15.2) % Plt Count (140-440) K/mm3 Lymph % (Auto) (13.4-35.0) % Eaton % (Auto) (0.0-7.3) % Eos % (Auto) (0.0-4.3) % Baso % (Auto) (0.0-1.8) % Lymph # (Auto) (1.2-5.4) K/mm3 Eaton # (Auto) (0.0-0.8) K/mm3 Eos # (Auto) (0.0-0.4) K/mm3 Baso # (Auto) (0.0-0.1) K/mm3 Seg Neutrophils % (40.0-70.0) % Seg Neutrophils # (1.8-7.7) K/mm3 PT (12.2-14.9) Sec. INR (0.87-1.13) APTT (24.2-36.6) Sec. D-Dimer 208.60 (0-234) ng/mlDDU Sodium 139 Potassium 3.7 Chloride 107.3 H Carbon Dioxide 19 L Anion Gap 16 BUN 16 Creatinine 0.8 Estimated GFR > 60 BUN/Creatinine Ratio 20 Glucose 98 Calcium 8.1 L Total Bilirubin 0.30 AST 19 ALT 11 Alkaline Phosphatase 64 Troponin T < 0.010 Total Protein 6.1 L Albumin 3.4 L Albumin/Globulin Ratio 1.3 Blood Type A POSITIVE Antibody Screen Negative 11/19/20 Range/Units 23:05 WBC (4.5-11.0) K/mm3 RBC (3.65-5.03) M/mm3 Hgb (10.1-14.3) gm/dl Hct (30.3-42.9) % MCV (79-97) fl MCH (28-32) pg MCHC (30-34) % RDW (13.2-15.2) % Plt Count (140-440) K/mm3 Lymph % (Auto) (13.4-35.0) % Eaton % (Auto) (0.0-7.3) % Eos % (Auto) (0.0-4.3) % Baso % (Auto) (0.0-1.8) % Lymph # (Auto) (1.2-5.4) K/mm3 Eaton # (Auto) (0.0-0.8) K/mm3 Eos # (Auto) (0.0-0.4) K/mm3 Baso # (Auto) (0.0-0.1) K/mm3 Seg Neutrophils % (40.0-70.0) % Seg Neutrophils # (1.8-7.7) K/mm3 PT (12.2-14.9) Sec. INR (0.87-1.13) APTT (24.2-36.6) Sec. D-Dimer (0-234) ng/mlDDU Sodium Potassium Chloride Carbon Dioxide Anion Gap BUN Creatinine Estimated GFR BUN/Creatinine Ratio Glucose 100 Calcium Total Bilirubin AST ALT Alkaline Phosphatase Troponin T Total Protein Albumin Albumin/Globulin Ratio Blood Type Antibody Screen - EKG Data -: EKG Interpreted by Dc EKG shows normal: sinus rhythm Rate: tachycardia (103) - EKG Data When compared to previous EKG there are: no significant change - Radiology Data Radiology results: report reviewed XR chest 1V ap INDICATION / CLINICAL INFORMATION: chest pain, epigastric pain, sob. COMPARISON: 05/29/2020 FINDINGS: SUPPORT DEVICES: None. HEART /PULMONARY VASCULATURE: No significant abnormality. LUNGS / PLEURA: Streaky bibasilar airspace opacities are present, more pronounced in the left lung base. No sizable pleural effusion. No evidence of pneumothorax. ADDITIONAL FINDINGS: No significant additional findings. IMPRESSION: Streaky bibasilar airspace opacities, which may reflect atelectasis or developing infiltrate. Signer Name: Remberto Madden MD CT ABDOMEN AND PELVIS WITHOUT CONTRAST HISTORY: gen abd pain greatest epigastrum blood stool. COMPARISON: None. TECHNIQUE: CT images of the abdomen and pelvis were obtained without administration of intravenous contrast. All CT scans at this location are performed using CT dose reduction for ALARA by means of automated exposure control. FINDINGS: Lungs/bones: Mild bronchiectasis with atelectasis in the lower lungs Abdomen/pelvis: Within limits of a noncontrast examination the liver, spleen, adrenal glands are normal. There is dilatation of the proximal and mid pancreatic duct measuring 5 mm. There may be some thickening of the distal esophagus with small hiatal hernia. Colonic diverticulosis without diverticulitis no definite renal stones. Ectasia of the abdominal aorta. No free fluid in the abdomen or pelvis. Urinary bladder appears normal. Atherosclerotic changes seen throughout the aorta IMPRESSION: 1. Questionable mild thickening of this. Visible small hiatal hernia. Clinical correlation follow- up. 2. Lower lobe bronchiectasis with atelectasis in the lower lungs 3. Colonic diverticulosis. No focal inflammatory change. No bowel obstruction is identified. 4. Atherosclerotic changes seen throughout the aorta and branch vessels. Given patient's history of blood in stool follow-up with GI for colonoscopy and further workup is warranted. 5. Mild dilatation of the pancreatic duct measuring 5 mm. No well-defined masses seen however examination is limited with noncontrast technique. Clinical correlation and follow-up. - Medical Decision Making 65-year-old female presents to the hospital with abdominal pain and multiple episodes of grossly bloody stools. Patient complains of sharp intermittent chest pain and abdominal pain. CT significant for esophagitis and d iverticulosis (likely source of bleeding). Chest x-ray suggestive of airspace disease however, imaged portion of the lung on abdominal CT was suggestive of atelectasis. Patient was empirically covered with Rocephin and azithromycin and Covid test ordered. Patient has COPD with home oxygen dependence however, O2 sat 99% on room patient provided duo nebs and Solu-Medrol for COPD exacerbation. Patient also endorses chest pain which appears to be atypical and likely GI in nature. Patient received IV Protonix. EKG unchanged from previous and troponin negative. Initial H&H normal. Well in the ED patient is stable without signs of hypotension or tachycardia. Patient treated with IV Protonix, Zofran, and morphine in the ED. Patient to be admitted to the hospitalist service telemetry. Critical Care Time: No Critical care attestation.: If time is entered above; I have spent that time in minutes in the direct care of this critically ill patient, excluding procedure time. 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
--- NOTE | 2020-11-19 21:57 | XRay Report ---
XR chest 1V ap INDICATION / CLINICAL INFORMATION: chest pain, epigastric pain, sob. COMPARISON: 05/29/2020 FINDINGS: SUPPORT DEVICES: None. HEART /PULMONARY VASCULATURE: No significant abnormality. LUNGS / PLEURA: Streaky bibasilar airspace opacities are present, more pronounced in the left lung ba se. No sizable pleural effusion. No evidence of pneumothorax. ADDITIONAL FINDINGS: No significant additional findings. IMPRESSION: Streaky bibasilar airspace opacities, which may reflect atelectasis or developing infiltrate. Signer Name: Remberto Madden MD Signed: 11/19/2020 9:52 PM Workstation Name: [id number]
[2020-11-19 22:01] LABS: Basophils # (Auto) 0.1 K/mm3 (0.0-0.1); Basophils % (Auto) 1.1 % (0.0-1.8); Eosinophils # (Auto) 0.2 K/mm3 (0.0-0.4); Eosinophils % (Auto) 3.2 % (0.0-4.3); Hemoglobin 12.9 gm/dl (10.1-14.3); Lymphocytes # (Auto) 2.3 K/mm3 (1.2-5.4); Lymphocytes % (Auto) 43.3 % (13.4-35.0); Mean Corpuscular HGB Conc 35 % (30-34); Mean Corpuscular Volume 90 fl (79-97); Monocytes # (Auto) 0.5 K/mm3 (0.0-0.8); Monocytes % (Auto) 10.3 % (0.0-7.3); Platelet Count 188 K/mm3 (140-440); Red Blood Count 4.12 M/mm3 (3.65-5.03); Red Cell Distribution Width 16.1 % (13.2-15.2)
[2020-11-19 22:15] LABS: INR 1.21 (0.87-1.13); Partial Thromboplastin Time 31.9 Sec. (24.2-36.6)
[2020-11-19 22:36] LABS: Alanine Aminotransferase TNR units/L (7-56); BUN/Creatinine Ratio TNR; Blood Urea Nitrogen TNR mg/dL (7-17); Calcium TNR mg/dL (8.4-10.2)
[2020-11-19 22:37] LABS: Albumin TNR g/dL (3.9-5); Hemolysis Index TNR
[2020-11-19] MEDS ORDERED: AZITHROMYCIN/NS 500 MG/250 ML 500 MG/250 ML BAG IV ONE (22:43)
[2020-11-19] MEDS ORDERED: cefTRIAXone/NS 2 GM/100 ML 2 GM/100 ML BAG IV ONE (22:43)
--- NOTE | 2020-11-19 23:30 | Cat Scan Report ---
CT ABDOMEN AND PELVIS WITHOUT CONTRAST HISTORY: gen abd pain greatest epigastrum blood stool. COMPARISON: None. TECHNIQUE: CT images of the abdomen and pelvis were obtained without administration of intravenous co ntrast. All CT scans at this location are performed using CT dose reduction for ALARA by means of au tomated exposure control. FINDINGS: Lungs/bones: Mild bronchiectasis with atelectasis in the lower lungs Abdomen/pelvis: Within limits of a noncontrast examination the liver, spleen, adrenal glands are nor mal. There is dilatation of the proximal and mid pancreatic duct measuring 5 mm. There may be some th ickening of the distal esophagus with small hiatal hernia. Colonic diverticulosis without diverticuli tis no definite renal stones. Ectasia of the abdominal aorta. No free fluid in the abdomen or pelvis. Urinary bladder appears normal. Atherosclerotic changes seen throughout the aorta IMPRESSION: 1. Questionable mild thickening of this. Visible small hiatal hernia. Clinical correlation follow-up. 2. Lower lobe bronchiectasis with atelectasis in the lower lungs 3. Colonic diverticulosis. No focal inflammatory change. No bowel obstruction is identified. 4. Atherosclerotic changes seen throughout the aorta and branch vessels. Given patient's history of b lood in stool follow-up with GI for colonoscopy and further workup is warranted. 5. Mild dilatation of the pancreatic duct measuring 5 mm. No well-defined masses seen however examina tion is limited with noncontrast technique. Clinical correlation and follow-up. Signer Name: Sunday Samaniego MD Signed: 11/19/2020 11:26 PM Workstation Name: [id number]
[2020-11-19 23:45] LABS: Alanine Aminotransferase 11 units/L (7-56); Albumin 3.4 g/dL (3.9-5); BUN/Creatinine Ratio 20; Blood Urea Nitrogen 16 mg/dL (7-17); Calcium 8.1 mg/dL (8.4-10.2); Hemolysis Index 4
[2020-11-20] MEDS ORDERED: methylPREDNISolone Sod Succinate 125 MG/2 ML INJ IV ONE (00:10)
--- NOTE | 2020-11-20 00:44 | History and Physical Report ---
History of Present Illness Date of examination: 11/20/20 Date of admission: 11/20/20 Chief complaint: GI bleed Rectal bleeding History of present illness: 65 years old female with history of asthma, pulmonary embolism on Eliquis COPD with 4 L of home oxygen and hepatitis B was brought to the emergency room because of rectal bleeding since this morning Patient has had 5 episodes of bright red blood and dark red blood with bowel movement with and without stool. Patient describes it as "peeing blood from her rectum." Last dose of Eliquis for 5 hours prior to arrival. Patient also having intermittent epigastric pain radiating to the entire abdomen and left- sided chest pain. Pain is moderate to severe in intensity, sharp, worse in the abdomen with palpation, no alleviating factors. Positive associated nausea without vomiting. Patient admits to some mild marijuana use, drinking beer, and took an Aleve today in an attempt to alleviate the pain. 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 Last colonoscopy 2 to 3 years ago was normal as per patient. No previous history of GI bleed. EMS provided morphine 2 mg IV and normal saline 500 mL. No reports of hypotension in route to the hospital. Room air saturation currently 99%. Patient is not immunized for Covid. In the emergency room patient hemoglobin is 12.9 [address] scan of the abdomen shows liver and spleen adrenal glands are normal. There is dilatation of the proximal and mid pancreatic duct measuring for 5 mm. There may be some thickening of the distal esophagus with small hiatal hernia. Colonic diverticulosis. No focal inflammatory change. No bowel obstruction is identified Case discussed with GI will see the patient in consultation. Med rec is done. Advance discharge process is initiated Past History Past Medical History: arthritis, diabetes, hepatitis, liver disease, other (Ast hma, pulmonary embolism) Medications and Allergies Allergies Allergy/AdvReac Type Severity Reaction Status Date / Time aspirin Allergy Unknown Verified 07/04/20 18:01 tramadol Allergy Unknown Verified 07/04/20 18:01 ibuprofen [From Motrin] AdvReac Nausea Verified 07/04/20 18:01 naproxen [From Aleve] AdvReac Unknown Verified 07/04/20 18:01 iv dye Allergy Hives Uncoded 07/04/20 18:01 Home Medications Medication Instructions Recorded Confirmed Last Taken Type Acetaminophen [Acetaminophen TAB] 650 mg PO Q6HR PRN #30 tablet 08/24/18 05/30/20 02/06/20 Rx busPIRone [Buspar] 10 mg PO BID 12/06/19 05/30/20 2 Days Ago History ~05/28/20 Fluticasone/Salmeterol [Advair 1 puff IH BID #1 disk.w.dev 12/08/19 05/30/20 2 Days Ago Rx Diskus 250-50 mcg] ~05/28/20 Melatonin [Melatonin 10MG CAP] 10 mg PO QHS PRN #10 capsule 12/08/19 05/30/20 2 Days Ago Rx ~05/28/20 Apixaban [Eliquis] 5 mg PO Q12HR #60 tablet 01/21/20 05/30/20 2 Days Ago Rx ~05/28/20 DULoxetine [Cymbalta] 30 mg PO DAILY 02/06/20 05/30/20 2 Days Ago History ~05/28/20 Diclofenac 1% [Diclofenac 1% 2 gram TP Q6HR 02/06/20 05/30/20 2 Days Ago History topical gel] ~05/28/20 Esomeprazole Magnesium [NexIUM] 40 mg PO QDAY 02/06/20 05/30/20 2 Days Ago History ~05/28/20 Gabapentin 300 mg PO Q8HR 02/06/20 05/30/20 2 Days Ago History ~05/28/20 Glecaprevir/Pibrentasvir(Nf) 1 each PO BID 05/30/20 05/30/20 2 Days Ago History [Mavyret 100-40 mg (Nf)] ~05/28/20 amLODIPine 5 mg PO DAILY 05/30/20 05/30/20 Unknown History Cetirizine HCl [ZyrTEC 10mg cap] 10 mg PO DAILY #10 capsule 06/01/20 Unknown Rx Furosemide [Lasix] 20 mg PO QDAY #10 tablet 06/01/20 Unknown Rx Prednisone [predniSONE 10 mg 10 mg PO .TAPER #1 tab.ds.pk 06/01/20 Unknown Rx (6-Day Pack, 21 Tabs)] oxyCODONE /ACETAMINOPHEN [Percocet 1 tab PO BID PRN #8 tablet 06/01/20 Unknown Rx 5/325 mg] Cyclobenzaprine [Flexeril] 10 mg PO TID PRN #10 tablet 07/04/20 Unknown Rx Review of Systems All systems: negative Cardiovascular: chest pain Gastrointestinal: abdominal pain, nausea, vomiting, BRBPR, melena Exam - Constitutional Vitals: Temp Pulse Resp BP Pulse Ox 98.2 F 99 H 18 128/76 100 11/19/20 21:23 11/19/20 23:45 11/19/20 23:45 11/19/20 23:45 11/19/20 23:45 General appearance: Present: no acute distress, well-nourished - EENT Eyes: Present: PERRL ENT: hearing intact, clear oral mucosa - Neck Neck: Present: supple, normal ROM - Respiratory Respiratory effort: normal Respiratory: bilateral: diminished - Cardiovascular Heart Sounds: Present: S1 & S2. Absent: rub, click - Extremities Extremities: pulses symmetrical, No edema Peripheral Pulses: within normal limits - Abdominal General gastrointestinal: Present: soft, non-tender, non-distended, normal bowel sounds Female genitourinary: Present: normal - Integumentary Integumentary: Present: clear, warm, dry - Musculoskeletal Musculoskeletal: gait normal, strength equal bilaterally - Psychiatric Psychiatric: appropriate mood/affect, intact judgment & insight - Neurologic Neurologic: CNII-XII intact, moves all extremities HEART Score - HEART Score Troponin: Troponin T < 0.010 ng/mL (0.00-0.029) 11/19/20 23:05 Results - Labs CBC & Chem 7: 11/19/20 21:40 11/19/20 23:05 Labs: Laboratory Last Values WBC 5.3 K/mm3 (4.5-11.0) 11/19/20 21:40 RBC 4.12 M/mm3 (3.65-5.03) 11/19/20 21:40 Hgb 12.9 gm/dl (10.1-14.3) 11/19/20 21:40 Hct 37.0 % (30.3-42.9) 11/19/20 21:40 MCV 90 fl (79-97) 11/19/20 21:40 MCH 31 pg (28-32) 11/19/20 21:40 MCHC 35 % (30-34) H 11/19/20 21:40 RDW 16.1 % (13.2-15.2) H 11/19/20 21:40 Plt Count 188 K/mm3 (140-440) 11/19/20 21:40 Lymph % (Auto) 43.3 % (13.4-35.0) H 11/19/20 21:40 [place] % (Auto) 10.3 % (0.0-7.3) H 11/19/20 21:40 Eos % (Auto) 3.2 % (0.0-4.3) 11/19/20 21:40 Baso % (Auto) 1.1 % (0.0-1.8) 11/19/20 21:40 Lymph # (Auto) 2.3 K/mm3 (1.2-5.4) 11/19/20 21:40 [place] # (Auto) 0.5 K/mm3 (0.0-0.8) 11/19/20 21:40 Eos # (Auto) 0.2 K/mm3 (0.0-0.4) 11/19/20 21:40 Baso # (Auto) 0.1 K/mm3 (0.0-0.1) 11/19/20 21:40 Seg Neutrophils % 42.1 % (40.0-70.0) 11/19/20 21:40 Seg Neutrophils # 2.3 K/mm3 (1.8-7.7) 11/19/20 21:40 PT 15.8 Sec. (12.2-14.9) H 11/19/20 21:40 INR 1.21 (0.87-1.13) H 11/19/20 21:40 APTT 31.9 Sec. (24.2-36.6) 11/19/20 21:40 D-Dimer 208.60 ng/mlDDU (0-234) 11/19/20 23:05 Sodium 139 mmol/L (137-145) 11/19/20 23:05 Potassium 3.7 mmol/L (3.6-5.0) 11/19/20 23:05 Chloride 107.3 mmol/L (98-107) H 11/19/20 23:05 Carbon Dioxide 19 mmol/L (22-30) L 11/19/20 23:05 Anion Gap 16 mmol/L 11/19/20 23:05 BUN 16 mg/dL (7-17) 11/19/20 23:05 Creatinine 0.8 mg/dL (0.6-1.2) 11/19/20 23:05 Estimated GFR > 60 ml/min 11/19/20 23:05 BUN/Creatinine Ratio 20 % 11/19/20 23:05 Glucose 98 mg/dL (65-100) 11/19/20 23:05 Glucose 100 mg/dL (65-100) 11/19/20 23:05 Calcium 8.1 mg/dL (8.4-10.2) L 11/19/20 23:05 Total Bilirubin 0.30 mg/dL (0.1-1.2) 11/19/20 23:05 AST 19 units/L (5-40) 11/19/20 23:05 ALT 11 units/L (7-56) 11/19/20 23:05 Alkaline Phosphatase 64 units/L (35-129) 11/19/20 23:05 Troponin T < 0.010 ng/mL (0.00-0.029) 11/19/20 23:05 Total Protein 6.1 g/dL (6.3-8.2) L 11/19/20 23:05 Albumin 3.4 g/dL (3.9-5) L 11/19/20 23:05 Albumin/Globulin Ratio 1.3 % 11/19/20 23:05 Blood Type A POSITIVE 11/19/20 21:40 Antibody Screen Negative 11/19/20 21:40 - Imaging and Cardiology CT scan - abdomen: report reviewed Assessment and Plan VTE prophylaxis?: Mechanical Plan of care discussed with patient/family: Yes - Patient Problems (1) Rectal bleeding Current Visit: Yes Status: Acute Plan to address problem: Admit the patient to the medical telemetry. N.p.o. IV fluid normal saline at the rate of 100 cc/h. Protonix 40 mg IV every 12 hours. Zofran 4 mg IV every 6 hours as needed. Due to the serial CBC. We will hold the Eliquis. Reconsult GI for possible endoscopy and colonoscopy. Recheck CBC BMP in the morning (2) History of pulmonary embolism Current Visit: Yes Status: Acute Plan to address problem: We hold the Eliquis for GI bleeding. We will resume it when okay with GI (3) COPD with acute exacerbation Current Visit: Yes Status: Acute Plan to address problem: Oxygen via nasal cannula 3 L/min. DuoNeb via nebulizer every 4 hours as needed. Albuterol via nebulizer every 4 hours as needed (4) Diverticulosis Current Visit: Yes Status: Acute Plan to address problem: Protonix 40 mg IV every 12 hours. Reconsult GI for evaluation (5) Opacities of both lungs present on chest x-ray Current Visit: Yes Status: Acute Plan to address problem: Oxygen per nasal cannula 3 L/min DuoNeb by nebulizer every 4 hours. Rocephin 2 g IV daily. Zithromax to 50 mg p.o. daily. We do the blood culture sputum culture. We do the Covid PCR. Consult infectious disease if needed (6) DVT prophylaxis Current Visit: No Status: Acute Plan to address problem: SCD for DVT prophylaxis. Protonix 40 mg IV every 12 hours for GI prophylaxis. Patient is a full code
[2020-11-20] MEDS ORDERED: NON-FORMULARY EACH (Prednisone [Prednisone 10 Mg (6-Day Pack, 21 Tabs)] 10 MG Tab.Ds.Pk) PO SCH (00:45)
[2020-11-20] MEDS: HYDROmorphone 1 MG/1 ML INJ IV PRN ×4 (01:23→21:14)
[2020-11-20] MEDS ORDERED: ALBUTEROL 2.5 MG/3 ML NEBU IH PRN (01:30)
[2020-11-20] MEDS ORDERED: DEXTROSE 50% IN WATER (25GM) 50 ML SYRINGE IV PRN (01:30)
[2020-11-20] MEDS ORDERED: ACETAMINOPHEN 325 MG TAB PO PRN (01:30)
[2020-11-20 01:39] LABS: C-Reactive Protein 0.2 mg/dL (0.00-1.30)
[2020-11-20] MEDS: cefTRIAXone/NS 2 GM/100 ML 2 GM/100 ML BAG IV SCH (01:43)
[2020-11-20] MEDS: oxyCODONE /ACETAMINOPHEN 5-325MG TAB PO PRN (03:30)
[2020-11-20] MEDS: INSULIN LISPRO 100 UNIT/ML SUB-Q SCH ×4 (06:00→17:49)
[2020-11-20] MEDS ORDERED: ONDANSETRON 4 MG/2 ML INJ IV PRN (06:00)
[2020-11-20] MEDS: GABAPENTIN 300 MG CAP PO SCH ×3 (06:18→21:48)
[2020-11-20] MEDS: BUDESONIDE 0.5 MG/2 ML NEBU IH SCH ×2 (09:41→21:16)
[2020-11-20] MEDS: ARFORMOTEROL 15 MCG/2 ML NEBU IH SCH ×2 (09:41→21:16)
--- NOTE | 2020-11-20 09:46 | Electrocardiograph Report ---
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
[2020-11-20] MEDS ORDERED: NON-FORMULARY EACH (Fluticasone/Salmeterol [Advair Diskus 250-50 Mcg] 1 EACH Blst.W.Dev) IH SCH (10:00)
[2020-11-20] MEDS ORDERED: AZITHROMYCIN 250 MG TAB PO SCH (10:00)
[2020-11-20] MEDS: FUROSEMIDE 20 MG TAB PO SCH (10:35)
[2020-11-20] MEDS: amLODIPine 5 MG TAB PO SCH (10:36)
[2020-11-20] MEDS: DULoxetine 30 MG CAP PO SCH (10:36)
[2020-11-20] MEDS: PANTOPRAZOLE 40 MG INJ IV SCH ×2 (10:36→21:48)
[2020-11-20] MEDS: busPIRone 10 MG TAB PO SCH ×2 (10:55→21:48)
--- NOTE | 2020-11-20 11:16 | Gastroenterology Consultation ---
History of Present Illness - Reason for Consult Consult date: 11/20/20 rectal bleeding Requesting physician: BHASKAR CHRISTENSEN - History of Present Illness This is a pleasant 65 years old female with history of asthma, pulmonary embolism on Eliquis COPD with 4 L of home oxygen and hepatitis B was brought to the emergency room because of rectal bleeding she reports for the last 2 days She reports for last 2 days having multiple bowel movements with thick red liquid coming out of her rectum, 5 before coming to the emergency room and 3 since coming to the emergency room. I spoke with the patient's nurse he reports no bowel movements on his shift so no bowel movements in the last 4 hours She also reports complaint of abdominal pain throughout the abdomen worst in the epigastric area mild radiation to the chest She reports colonoscopy 2 years ago was normal Denies any history of GI bleed in the past Denies chronic NSAID use In the emergency room patient hemoglobin is 12.9 and [address] scan of the abdomen shows liver and spleen adrenal glands are normal. There is dilatation of the proximal and mid pancreatic duct measuring for 5 mm. There may be some thickening of the distal esophagus with small hiatal hernia. Colonic diverticulosis. No focal inflammatory change. 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) Social history: smoking, alcohol abuse Family history: cancer (Mother throat cancer), hypertension Medications and Allergies Allergies Allergy/AdvReac Type Severity Reaction Status Date / Time aspirin Allergy Unknown Verified 07/04/20 18:01 tramadol Allergy Unknown Verified 07/04/20 18:01 ibuprofen [From Motrin] AdvReac Nausea Verified 07/04/20 18:01 naproxen [From Aleve] AdvReac Unknown Verified 07/04/20 18:01 iv dye Allergy Hives Uncoded 07/04/20 18:01 Home Medications Medication Instructions Recorded Confirmed Last Taken Type Acetaminophen [Acetaminophen TAB] 650 mg PO Q6HR PRN #30 tablet 08/24/18 05/30/20 02/06/20 Rx busPIRone [Buspar] 10 mg PO BID 12/06/19 05/30/20 2 Days Ago History ~05/28/20 Fluticasone/Salmeterol [Advair 1 puff IH BID #1 disk.w.dev 12/08/19 05/30/20 2 Days Ago Rx Diskus 250-50 mcg] ~05/28/20 Melatonin [Melatonin 10MG CAP] 10 mg PO QHS PRN #10 capsule 12/08/19 05/30/20 2 Days Ago Rx ~05/28/20 Apixaban [Eliquis] 5 mg PO Q12HR #60 tablet 01/21/20 05/30/20 2 Days Ago Rx ~05/28/20 DULoxetine [Cymbalta] 30 mg PO DAILY 02/06/20 05/30/20 2 Days Ago History ~05/28/20 Diclofenac 1% [Diclofenac 1% 2 gram TP Q6HR 02/06/20 05/30/20 2 Days Ago History topical gel] ~05/28/20 Esomeprazole Magnesium [NexIUM] 40 mg PO QDAY 02/06/20 05/30/20 2 Days Ago History ~05/28/20 Gabapentin 300 mg PO Q8HR 02/06/20 05/30/20 2 Days Ago History ~05/28/20 Glecaprevir/Pibrentasvir(Nf) 1 each PO BID 05/30/20 05/30/20 2 Days Ago History [Mavyret 100-40 mg (Nf)] ~05/28/20 amLODIPine 5 mg PO DAILY 05/30/20 05/30/20 Unknown History Cetirizine HCl [ZyrTEC 10mg cap] 10 mg PO DAILY #10 capsule 06/01/20 Unknown Rx Furosemide [Lasix] 20 mg PO QDAY #10 tablet 06/01/20 Unknown Rx Prednisone [predniSONE 10 mg 10 mg PO .TAPER #1 tab.ds.pk 06/01/20 Unknown Rx (6-Day Pack, 21 Tabs)] oxyCODONE /ACETAMINOPHEN [Percocet 1 tab PO BID PRN #8 tablet 06/01/20 Unknown Rx 5/325 mg] Cyclobenzaprine [Flexeril] 10 mg PO TID PRN #10 tablet 07/04/20 Unknown Rx Active Meds: Active Medications Acetaminophen (Acetaminophen 325 Mg Tab) 650 mg PO Q4H PRN PRN Reason: Pain MILD(1-3)/Fever >100.5/RAMAN Albuterol (Albuterol 2.5 Mg/3 Ml Nebu) 2.5 mg IH Q4HRT PRN PRN Reason: Shortness Of Breath Amlodipine Besylate (Amlodipine 5 Mg Tab) 5 mg PO DAILY [facility] Last Admin: 11/20/20 10:36 Dose: 5 mg Documented by: Arformoterol Tartrate (Arformoterol 15 Mcg/2 Ml Nebu) 15 mcg IH Q12HRT [facility] Last Admin: 11/20/20 09:41 Dose: 15 mcg Documented by: Azithromycin (Azithromycin 250 Mg Tab) 250 mg PO QDAY [facility]; Protocol Last Admin: 11/20/20 10:35 Dose: 250 mg Documented by: Budesonide (Budesonide 0.5 Mg/2 Ml Nebu) 0.5 mg IH Q12HRT [facility] Last Admin: 11/20/20 09:41 Dose: 0.5 mg Documented by: Buspirone HCl (Buspirone 10 Mg Tab) 10 mg PO BID [facility] Last Admin: 11/20/20 10:55 Dose: 10 mg Documented by: Cyclobenzaprine HCl (Cyclobenzaprine 10 Mg Tab) 10 mg PO TID PRN PRN Reason: Muscle Spasm Dextrose (Dextrose 50% In Water (25gm) 50 Ml Syringe) 50 ml IV Q30MIN PRN; Protocol PRN Reason: Hypoglycemia Duloxetine HCl (Duloxetine 30 Mg Cap) 30 mg PO DAILY [facility] Last Admin: 11/20/20 10:36 Dose: 30 mg Documented by: Furosemide (Furosemide 20 Mg Tab) 20 mg PO QDAY [facility] Last Admin: 11/20/20 10:35 Dose: 20 mg Documented by: Gabapentin (Gabapentin 300 Mg Cap) 300 mg PO Q8HR [facility] Last Admin: 11/20/20 06:18 Dose: 300 mg Documented by: Hydromorphone HCl (Hydromorphone 1 Mg/1 Ml Inj) 0.5 mg IV Q3H PRN PRN Reason: Pain , Severe (7-10) Last Admin: 11/20/20 06:47 Dose: 0.5 mg Documented by: Sodium Chloride (Nacl 0.9% 1000 Ml) 1,000 mls @ 100 mls/hr IV DIRECT [facility] Ceftriaxone Sodium (Rocephin/Ns 2 Gm/100 Ml) 2 gm in 100 mls @ 200 mls/hr IV Q24H [facility]; Protocol Last Admin: 11/20/20 01:43 Dose: Not Given Documented by: Insulin Human Lispro (Insulin Lispro 100 Unit/Ml) 0 unit SUB-Q Q6HR [facility]; Protocol Last Admin: 11/20/20 06:00 Dose: Not Given Documented by: Ondansetron HCl (Ondansetron 4 Mg/2 Ml Inj) 4 mg IV Q8H PRN PRN Reason: Nausea And Vomiting Oxycodone/Acetaminophen (Oxycodone /Acetaminophen 5-325mg Tab) 1 tab PO Q6H PRN PRN Reason: Pain, Moderate (4-6) Last Admin: 11/20/20 03:30 Dose: 1 tab Documented by: Pantoprazole Sodium (Pantoprazole 40 Mg Inj) 40 mg IV BID [facility] Last Admin: 11/20/20 10:36 Dose: 40 mg Documented by: Sodium Chloride (Sodium Chloride 0.9% 10 Ml Flush Syringe) 10 ml IV BID [facility] Last Admin: 11/20/20 10:42 Dose: 10 ml Documented by: Sodium Chloride (Sodium Chloride 0.9% 10 Ml Flush Syringe) 10 ml IV PRN PRN PRN Reason: LINE FLUSH Review of Systems - Review of Systems All systems: negative (10 Systems reviewed and negative except as mentioned abov e in the history of present illness) Exam - Constitutional Vital Signs: Temp Pulse Resp BP Pulse Ox 98.2 F 72 17 105/67 98 11/19/20 21:23 11/20/20 09:44 11/20/20 09:44 11/20/20 07:00 11/20/20 09:45 General appearance: no acute distress - EENT Eyes: EOM intact ENT: hearing intact - Neck Neck: supple - Respiratory Respiratory effort: other (Mild shortness of breath) - Cardiovascular Rhythm: regular - Gastrointestinal General gastrointestinal: Present: soft, tender - Integumentary Integumentary: Present: dry - Musculoskeletal Musculoskeletal: normal - Neurologic Neurological: alert and oriented x3 - Psychiatric Psychiatric: appropriate mood/affect - Labs CBC & Chem 7: 11/19/20 21:40 11/19/20 23:05 Lab Results: Laboratory Results - last 24 hr 11/19/20 11/19/20 11/19/20 21:40 21:40 21:40 WBC 5.3 RBC 4.12 Hgb 12.9 Hct 37.0 MCV 90 MCH 31 MCHC 35 H RDW 16.1 H Plt Count 188 Lymph % (Auto) 43.3 H [place] % (Auto) 10.3 H Eos % (Auto) 3.2 Baso % (Auto) 1.1 Lymph # (Auto) 2.3 [place] # (Auto) 0.5 Eos # (Auto) 0.2 Baso # (Auto) 0.1 Seg Neutrophils % 42.1 Seg Neutrophils # 2.3 PT 15.8 H INR 1.21 H APTT 31.9 D-Dimer Sodium TNR Potassium TNR Chloride TNR Carbon Dioxide TNR Anion Gap TNR BUN TNR Creatinine TNR Estimated GFR TNR BUN/Creatinine Ratio TNR Glucose TNR Calcium TNR Ferritin Total Bilirubin TNR AST TNR ALT TNR Alkaline Phosphatase TNR Lactate Dehydrogenase Troponin T TNR C-Reactive Protein Total Protein TNR Albumin TNR Albumin/Globulin Ratio TNR Blood Type Antibody Screen 11/19/20 11/19/20 11/19/20 21:40 23:05 23:05 WBC RBC Hgb Hct MCV MCH MCHC RDW Plt Count Lymph % (Auto) [place] % (Auto) Eos % (Auto) Baso % (Auto) Lymph # (Auto) [place] # (Auto) Eos # (Auto) Baso # (Auto) Seg Neutrophils % Seg Neutrophils # PT INR APTT D-Dimer 208.60 Sodium 139 Potassium 3.7 Chloride 107.3 H Carbon Dioxide 19 L Anion Gap 16 BUN 16 Creatinine 0.8 Estimated GFR > 60 BUN/Creatinine Ratio 20 Glucose 98 Calcium 8.1 L Ferritin Total Bilirubin 0.30 AST 19 ALT 11 Alkaline Phosphatase 64 Lactate Dehydrogenase Troponin T < 0.010 C-Reactive Protein Total Protein 6.1 L Albumin 3.4 L Albumin/Globulin Ratio 1.3 Blood Type A POSITIVE Antibody Screen Negative 11/19/20 11/19/20 11/20/20 23:05 23:05 02:24 WBC RBC Hgb Hct MCV MCH MCHC RDW Plt Count Lymph % (Auto) [place] % (Auto) Eos % (Auto) Baso % (Auto) Lymph # (Auto) [place] # (Auto) Eos # (Auto) Baso # (Auto) Seg Neutrophils % Seg Neutrophils # PT INR APTT D-Dimer Sodium Potassium Chloride Carbon Dioxide Anion Gap BUN Creatinine Estimated GFR BUN/Creatinine Ratio Glucose 100 Calcium Ferritin 159.6 Total Bilirubin AST ALT Alkaline Phosphatase Lactate Dehydrogenase 164 Troponin T < 0.010 C-Reactive Protein 0.20 Total Protein Albumin Albumin/Globulin Ratio Blood Type Antibody Screen 11/20/20 04:57 WBC RBC Hgb Hct MCV MCH MCHC RDW Plt Count Lymph % (Auto) [place] % (Auto) Eos % (Auto) Baso % (Auto) Lymph # (Auto) [place] # (Auto) Eos # (Auto) Baso # (Auto) Seg Neutrophils % Seg Neutrophils # PT INR APTT D-Dimer Sodium Potassium Chloride Carbon Dioxide Anion Gap BUN Creatinine Estimated GFR BUN/Creatinine Ratio Glucose Calcium Ferritin Total Bilirubin AST ALT Alkaline Phosphatase Lactate Dehydrogenase Troponin T < 0.010 C-Reactive Protein Total Protein Albumin Albumin/Globulin Ratio Blood Type Antibody Screen Assessment and Plan Patient with clinical GI bleeding however she recently took her Eliquis therefore still anticoagulated she is clinically hemodynamically stable there fore does not require emergent endoscopic evaluation therefore will tentatively plan on EGD and colonoscopy tomorrow In the meantime recommend trending hemoglobin Clear liquid diet, GoLYTELY tonight n.p.o. past midnight Given CT scan findings and her presentation the differential diagnosis includes diverticular bleed AVM polyp mass etc., also differential diagnosis would be upper GI source such as esophageal inflammation Margarita-Hernandes tear etc. 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
[2020-11-20] MEDS: SODIUM CHLORIDE 0.9% 1000 ML 1,000 ML IV SCH (15:35)
[2020-11-20] MEDS ORDERED: POLYETHYLENE GLYCOL/ELECT SOLN 4000 ML PO NR (18:00)
--- NOTE | 2020-11-20 18:14 | Event Note ---
Date: 11/20/20 66-year-old with a history of asthma, pulmonary embolism chronic Eliquis use. COPD with home O2, hep B complained of rectal bleeding and bright red blood per rectum. Patient also complained of epigastric pain at the time. Has improved now work-up ED patient H&H found to be 12 and 37. Patient also gives a history of taking Aleve only [address] scan abdomen which was normal. Showed mild dilatation of the pancreatic duct otherwise normal. Patient at this time awaiting GI follow-up for persistent abdominal pain which most likely secondary differential includes diverticula bleed. , AV malformation peptic ulcer disease. EGD colonoscopy n.p.o. after midnight.
[2020-11-20 19:26] LABS: Hematocrit 31.8 % (30.3-42.9); Hemoglobin 10.8 gm/dl (10.1-14.3)
[2020-11-20] MEDS: ALPRAZolam 0.25 MG TAB PO PRN (21:15)
[2020-11-21] MEDS: cefTRIAXone/NS 2 GM/100 ML 2 GM/100 ML BAG IV SCH (01:32)
[2020-11-21] MEDS: HYDROmorphone 1 MG/1 ML INJ IV PRN ×3 (03:10→18:53)
[2020-11-21] MEDS: INSULIN LISPRO 100 UNIT/ML SUB-Q SCH ×4 (03:11→18:57)
[2020-11-21] MEDS: SODIUM CHLORIDE 0.9% 1000 ML 1,000 ML IV SCH (05:07)
[2020-11-21] MEDS: GABAPENTIN 300 MG CAP PO SCH ×3 (05:19→22:12)
[2020-11-21 05:55] LABS: BUN/Creatinine Ratio 20; Blood Urea Nitrogen 16 mg/dL (7-17); Calcium 8.3 mg/dL (8.4-10.2); Hemolysis Index 3
[2020-11-21 05:56] LABS: Basophils % (Auto) 0.3 % (0.0-1.8); Eosinophils # (Auto) 0.1 K/mm3 (0.0-0.4); Eosinophils % (Auto) 0.8 % (0.0-4.3); Hematocrit 27.6 % (30.3-42.9); Hemoglobin 9.4 gm/dl (10.1-14.3); Lymphocytes # (Auto) 2.6 K/mm3 (1.2-5.4); Mean Corpuscular HGB Conc 34 % (30-34); Mean Corpuscular Volume 90 fl (79-97); Monocytes # (Auto) 1.4 K/mm3 (0.0-0.8); Monocytes % (Auto) 10.7 % (0.0-7.3); Platelet Count 178 K/mm3 (140-440); Red Blood Count 3.08 M/mm3 (3.65-5.03); Red Cell Distribution Width 16.8 % (13.2-15.2)
[2020-11-21] MEDS: BUDESONIDE 0.5 MG/2 ML NEBU IH SCH ×2 (07:38→21:01)
[2020-11-21] MEDS: ARFORMOTEROL 15 MCG/2 ML NEBU IH SCH ×2 (07:38→21:01)
--- NOTE | 2020-11-21 08:21 | Progress Note ---
Assessment and Plan - Patient Problems (1) Abdominal pain Current Visit: Yes Status: Acute Plan to address problem: Could be secondary to gastritis. Margarita-Hernandes tear. Patient does have history of alcohol in the past. Continue IV proton pump inhibitor. Supportive care pain control morphine. Follow electrolytes and correct accordingly EGD in a.m. Bleeding scan today. (2) COPD with acute exacerbation Current Visit: Yes Status: Acute Plan to address problem: Albuterol nebulizers every 6 hours as needed Home oxygen. Steroid use if necessary not requiring at this time. (3) History of pulmonary embolism Current Visit: Yes Status: Acute Plan to address problem: Patient was on anticoagulation in the past has been stopped secondary to active bleeding. (4) care home current use of anticoagulant Current Visit: Yes Status: Acute Plan to address problem: DC Eliquis secondary to active bleeding. Transfuse for H&H less than 7. (5) Nicotine dependence Current Visit: No Status: Acute Qualifiers: Nicotine product type: cigarettes Substance use status: in withdrawal Qualified Code(s): F17.213 - Nicotine dependence, cigarettes, with withdrawal Plan to address problem: Add nicotine patch if desired. (6) Anemia due to gastrointestinal blood loss Current Visit: Yes Status: Acute Plan to address problem: Exact etiology unknown. AV malformation, diverticulitis, Margarita-Hernandes tear, ga stritis,. Patient colonoscopy EGD planned tomorrow. Bleeding scan unremarkable. Transfusion and supportive care as indicated. Follow serial CBC. Subjective Date of service: 11/21/20 Principal diagnosis: Acute GI blood loss anemia Interval history: 66-year-old with a history of asthma, pulmonary embolism chronic Eliquis use. COPD with home O2, hep B complained of rectal bleeding and bright red blood per rectum. Patient also complained of epigastric pain at the time. Has improved now work-up ED patient H&H found to be 12 and 37. Patient also gives a history of taking Aleve only [address] scan abdomen which was normal. Showed mild dilatation of the pancreatic duct otherwise normal. Patient at this time awaiting GI follow-up for persistent abdominal pain which most likely secon sofia differential includes diverticula bleed. , AV malformation peptic ulcer disease. 11/21/20 patient today still has evidence of active bleeding. Did not get GoLYTELY over p.m. or bowel prep. Patient has bleeding scan scheduled for today. Patient also has possible EGD colonoscopy in a.m. To receive Quorum. Patient complained of abdominal pain today. Medicated with morphine. Objective - Constitutional Vitals: Vital Signs - 12hr 11/20/20 11/20/20 11/20/20 20:30 21:00 21:10 Temperature 98.2 F Pulse Rate 85 75 Pulse Rate [ Bilateral Throughout] Respiratory 16 18 Rate Respiratory Rate [Bilateral Throughout] Blood Pressure 128/86 Blood Pressure 125/79 [Right] O2 Sat by Pulse 100 100 Oximetry 11/20/20 11/20/20 11/20/20 21:14 21:15 21:29 Temperature Pulse Rate Pulse Rate [ 72 Bilateral Throughout] Respiratory 18 Rate Respiratory 18 Rate [Bilateral Throughout] Blood Pressure Blood Pressure [Right] O2 Sat by Pulse 100 Oximetry 11/21/20 11/21/20 11/21/20 03:10 04:26 04:56 Temperature 99.2 F Pulse Rate 91 H 84 Pulse Rate [ Bilateral Throughout] Respiratory 20 18 Rate Respiratory Rate [Bilateral Throughout] Blood Pressure 88/69 Blood Pressure 112/58 [Right] O2 Sat by Pulse 90 94 Oximetry 11/21/20 11/21/20 06:03 07:38 Temperature Pulse Rate Pulse Rate [ 83 Bilateral Throughout] Respiratory Rate Respiratory 16 Rate [Bilateral Throughout] Blood Pressure Blood Pressure [Right] O2 Sat by Pulse 96 Oximetry General appearance: Present: no acute distress, well-nourished - EENT Eyes: PERRL, EOM intact ENT: hearing intact, clear oral mucosa Ears: bilateral: normal - Neck Neck: supple, normal ROM - Respiratory Respiratory effort: normal Respiratory: bilateral: CTA - Breasts Breasts: normal - Cardiovascular Rhythm: regular Heart Sounds: Present: S1 & S2. Absent: gallop, rub Extremities: pulses intact, No edema, normal color, Full ROM - Gastrointestinal General gastrointestinal: Present: soft, tender, non-distended, normal bowel sounds, other - Genitourinary Female genitourinary: normal - Integumentary Integumentary: clear, warm, dry - Musculoskeletal Musculoskeletal: 1, strength equal bilaterally - Neurologic Neurologic: moves all extremities - Psychiatric Psychiatric: memory intact, appropriate mood/affect, intact judgment & insight - Labs CBC & Chem 7: 11/21/20 04:53 11/21/20 04:53 Labs: Abnormal lab results 11/20/20 11/20/20 11/21/20 Range/Units 12:06 17:46 04:53 WBC 13.0 H (4.5-11.0) K/mm3 RBC 3.08 L (3.65-5.03) M/mm3 Hgb 9.4 L (10.1-14.3) gm/dl Hct 27.6 L (30.3-42.9) % RDW 16.8 H (13.2-15.2) % [place] % (Auto) 10.7 H (0.0-7.3) % [place] # (Auto) 1.4 H (0.0-0.8) K/mm3 Seg Neutrophils # 8.9 H (1.8-7.7) K/mm3 Glucose (65-100) mg/dL POC Glucose 228 H 128 H (70-105) mg/dL Calcium (8.4-10.2) mg/dL 11/21/20 11/21/20 Range/Units 04:53 06:34 WBC (4.5-11.0) K/mm3 RBC (3.65-5.03) M/mm3 Hgb (10.1-14.3) gm/dl Hct (30.3-42.9) % RDW (13.2-15.2) % [place] % (Auto) (0.0-7.3) % [place] # (Auto) (0.0-0.8) K/mm3 Seg Neutrophils # (1.8-7.7) K/mm3 Glucose 109 H (65-100) mg/dL POC Glucose 123 H (70-105) mg/dL Calcium 8.3 L (8.4-10.2) mg/dL HEART Score - HEART Score Troponin: Troponin T < 0.010 ng/mL (0.00-0.029) 11/20/20 04:57
--- NOTE | 2020-11-21 08:31 | Gastroenterology Progress Note ---
Assessment and Plan Patient still with clinical GI bleeding she is not prepped therefore will proceed with tagged RBC scan prep patient in the meantime and plan on EGD colonoscopy likely tomorrow Clear liquid diet, GoLYTELY tonight n.p.o. past midnight Given CT scan findings and her presentation the differential diagnosis includes diverticular bleed AVM polyp mass etc., also differential diagnosis would be upper GI source such as esophageal inflammation Margarita-Hernandes tear etc. therefore recommend PPI as upper GI source in the differential diagnosis - Patient Problems (1) Abdominal pain Current Visit: Yes Status: Acute (2) Diverticulosis Current Visit: Yes Status: Acute (3) group home current use of anticoagulant Current Visit: Yes Status: Acute (4) Rectal bleeding Current Visit: Yes Status: Acute Subjective Date of service: 11/21/20 Principal diagnosis: Acute GI blood loss anemia Interval history: Patient reports still having rectal bleeding She reports that she did not get her colon prep that was ordered yesterday, I spoke with the nurse she confirms the medication was not delivered she is not sure why Noted declining hemoglobin Objective - Constitutional Vitals: Temp Pulse Resp BP Pulse Ox 98.7 F 94 H 18 112/78 91 11/21/20 08:04 11/21/20 08:04 11/21/20 08:04 11/21/20 08:04 11/21/20 08:04 General appearance: no acute distress - EENT Eyes: EOM intact - Neck Neck: supple - Respiratory Respiratory effort: normal Respiratory: bilateral: rhonchi - Cardiovascular Rhythm: regular - Gastrointestinal General gastrointestinal: Present: soft - Labs CBC & Chem 7: 11/21/20 04:53 11/21/20 04:53 Labs: Laboratory Results - last 24 hr 11/19/20 11/19/20 11/20/20 23:05 Unknown 12:06 WBC RBC Hgb Hct MCV MCH MCHC RDW Plt Count Lymph % (Auto) Ward % (Auto) Eos % (Auto) Baso % (Auto) Lymph # (Auto) Ward # (Auto) Eos # (Auto) Baso # (Auto) Seg Neutrophils % Seg Neutrophils # Sodium Potassium Chloride Carbon Dioxide Anion Gap BUN Creatinine Estimated GFR BUN/Creatinine Ratio Glucose POC Glucose 228 H Calcium Procalcitonin < 0.05 Coronavirus (PCR) Negative 11/20/20 11/20/20 11/21/20 17:46 19:14 04:53 WBC 13.0 H RBC 3.08 L Hgb 10.8 9.4 L Hct 31.8 27.6 L MCV 90 MCH 30 MCHC 34 RDW 16.8 H Plt Count 178 Lymph % (Auto) 20.0 Ward % (Auto) 10.7 H Eos % (Auto) 0.8 Baso % (Auto) 0.3 Lymph # (Auto) 2.6 Ward # (Auto) 1.4 H Eos # (Auto) 0.1 Baso # (Auto) 0.0 Seg Neutrophils % 68.2 Seg Neutrophils # 8.9 H Sodium Potassium Chloride Carbon Dioxide Anion Gap BUN Creatinine Estimated GFR BUN/Creatinine Ratio Glucose POC Glucose 128 H Calcium Procalcitonin Coronavirus (PCR) 11/21/20 11/21/20 04:53 06:34 WBC RBC Hgb Hct MCV MCH MCHC RDW Plt Count Lymph % (Auto) Ward % (Auto) Eos % (Auto) Baso % (Auto) Lymph # (Auto) Ward # (Auto) Eos # (Auto) Baso # (Auto) Seg Neutrophils % Seg Neutrophils # Sodium 137 Potassium 3.8 Chloride 102.9 Carbon Dioxide 29 D Anion Gap 9 BUN 16 Creatinine 0.8 Estimated GFR > 60 BUN/Creatinine Ratio 20 Glucose 109 H POC Glucose 123 H Calcium 8.3 L Procalcitonin Coronavirus (PCR)
[2020-11-21] MEDS: busPIRone 10 MG TAB PO SCH ×2 (08:56→22:13)
[2020-11-21] MEDS ORDERED: POLYETHYLENE GLYCOL/ELECT SOLN 4000 ML PO NR (09:00)
[2020-11-21] MEDS: PANTOPRAZOLE 40 MG INJ IV SCH ×2 (11:01→22:12)
--- NOTE | 2020-11-21 15:16 | Nuclear Medicine Report ---
NM GI bleeding scan INDICATION / CLINICAL INFORMATION: gi bleed. TRACER: Technetium 99m UltraTag 20 mCi IV injection. COMPARISON: No relevant prior imaging study available. FINDINGS: Following injection of the above tracer, physiologic tracer uptake noted. 6 serial imaging demonstrat es no active bleeding site. IMPRESSION: Negative for active GI bleed. Signer Name: Zeke Hines MD Signed: 11/21/2020 3:12 PM Workstation Name: [id number]
[2020-11-21] MEDS: DULoxetine 30 MG CAP PO SCH (16:00)
[2020-11-21] MEDS: AZITHROMYCIN 250 MG TAB PO SCH (17:30)
[2020-11-21] MEDS: amLODIPine 5 MG TAB PO SCH (17:30)
[2020-11-21] MEDS: FUROSEMIDE 20 MG TAB PO SCH (19:54)
[2020-11-21] MEDS: ALPRAZolam 0.25 MG TAB PO PRN (22:12)
[2020-11-21] MEDS: CYCLOBENZAPRINE 10 MG TAB PO PRN (22:12)
[2020-11-22] MEDS: HYDROmorphone 1 MG/1 ML INJ IV PRN ×5 (00:19→23:46)
[2020-11-22] MEDS: INSULIN LISPRO 100 UNIT/ML SUB-Q SCH ×4 (00:57→18:11)
[2020-11-22] MEDS: cefTRIAXone/NS 2 GM/100 ML 2 GM/100 ML BAG IV SCH ×2 (06:26→23:46)
[2020-11-22] MEDS: GABAPENTIN 300 MG CAP PO SCH ×3 (06:28→21:42)
--- NOTE | 2020-11-22 08:48 | Progress Note ---
Assessment and Plan - Patient Problems (1) Abdominal pain Current Visit: Yes Status: Acute Plan to address problem: Could be secondary to gastritis. Margarita-Hernandes tear. Patient does have history of alcohol in the past. Continue IV proton pump inhibitor. Supportive care pain control morphine. Follow electrolytes and correct accordingly EGD in a.m. Bleeding scan today. (2) COPD with acute exacerbation Current Visit: Yes Status: Acute Plan to address problem: Albuterol nebulizers every 6 hours as needed Home oxygen. Steroid use if necessary not requiring at this time. (3) History of pulmonary embolism Current Visit: Yes Status: Acute Plan to address problem: Patient was on anticoagulation in the past has been stopped secondary to active bleeding. Unable to use at this time patient with active bleeding today. (4) group home current use of anticoagulant Current Visit: Yes Status: Acute Plan to address problem: DC Eliquis secondary to active bleeding. Transfuse for H&H less than 7. (5) Nicotine dependence Current Visit: No Status: Acute Qualifiers: Nicotine product type: cigarettes Substance use status: in withdrawal Qualified Code(s): F17.213 - Nicotine dependence, cigarettes, with withdrawal Plan to address problem: Add nicotine patch if desired. (6) Anemia due to gastrointestinal blood loss Current Visit: Yes Status: Acute Plan to address problem: Patient bleeding scan negative initially. Had colonoscopy today. Show most likely secondary to colonic diverticula. Plan is to observe today for any further bleeding and tomorrow. Patient be started on diet today monitor hemoglobin hematocrit. If patient has another episode of bleeding will obtain additional bleeding scan. Subjective Date of service: 11/22/20 Principal diagnosis: Acute GI blood loss anemia Interval history: 66-year-old with a history of asthma, pulmonary embolism chronic Eliquis use. COPD with home O2, hep B complained of rectal bleeding and bright red blood per rectum. Patient also complained of epigastric pain at the time. Has improved now work-up ED patient H&H found to be 12 and 37. Patient also gives a history of taking Aleve only [address] scan abdomen which was normal. Showed mild dilatation of the pancreatic duct otherwise normal. Patient at this time awaiting GI follow-up for persistent abdominal pain which most likely secondary differential includes diverticula bleed. , AV malformation peptic ulcer disease. 11/21/20 patient today still has evidence of active bleeding. Did not get GoLYTELY over p.m. or bowel prep. Patient has bleeding scan scheduled for today. Patient also has possible EGD colonoscopy in a.m. To receive GoLYTELY tonight. Patient complained of abdominal pain today. Medicated with morphine. Objective - Constitutional Vitals: Vital Signs - 12hr 11/21/20 11/21/20 11/21/20 21:42 22:12 23:25 Temperature 97.4 F L Pulse Rate 89 Respiratory 18 16 Rate Blood Pressure 121/73 O2 Sat by Pulse 100 100 Oximetry 11/22/20 11/22/20 11/22/20 00:19 01:00 04:19 Temperature 98.0 F Pulse Rate 93 H Respiratory 20 16 Rate Blood Pressure 118/70 O2 Sat by Pulse 100 91 Oximetry 11/22/20 11/22/20 05:00 06:36 Temperature Pulse Rate 88 Respiratory 18 Rate Blood Pressure O2 Sat by Pulse Oximetry General appearance: Present: no acute distress, well-nourished - EENT Eyes: PERRL, EOM intact ENT: hearing intact, clear oral mucosa Ears: bilateral: normal - Neck Neck: supple, normal ROM - Respiratory Respiratory effort: normal Respiratory: bilateral: CTA - Breasts Breasts: normal - Cardiovascular Rhythm: regular Heart Sounds: Present: S1 & S2. Absent: gallop, rub Extremities: pulses intact, No edema, normal color, Full ROM - Gastrointestinal General gastrointestinal: Present: soft, non-tender, non-distended, normal bowel sounds - Genitourinary Female genitourinary: normal - Integumentary Integumentary: clear, warm, dry - Musculoskeletal Musculoskeletal: 1, strength equal bilaterally - Neurologic Neurologic: moves all extremities - Psychiatric Psychiatric: memory intact, appropriate mood/affect, intact judgment & insight - Labs CBC & Chem 7: 11/22/20 08:25 11/22/20 08:25 HEART Score - HEART Score Troponin: Troponin T < 0.010 ng/mL (0.00-0.029) 11/20/20 04:57
[2020-11-22 09:14] LABS: Basophils # (Auto) 0.1 K/mm3 (0.0-0.1); Basophils % (Auto) 1.1 % (0.0-1.8); Eosinophils # (Auto) 0.2 K/mm3 (0.0-0.4); Eosinophils % (Auto) 2.3 % (0.0-4.3); Hematocrit 25.7 % (30.3-42.9); Hemoglobin 8.8 gm/dl (10.1-14.3); Lymphocytes # (Auto) 2.5 K/mm3 (1.2-5.4); Mean Corpuscular HGB Conc 34 % (30-34); Mean Corpuscular Volume 90 fl (79-97); Monocytes # (Auto) 0.8 K/mm3 (0.0-0.8); Monocytes % (Auto) 10.6 % (0.0-7.3); Platelet Count 167 K/mm3 (140-440); Red Blood Count 2.87 M/mm3 (3.65-5.03); Red Cell Distribution Width 16.3 % (13.2-15.2)
[2020-11-22] MEDS: BUDESONIDE 0.5 MG/2 ML NEBU IH SCH (09:14)
[2020-11-22] MEDS: ARFORMOTEROL 15 MCG/2 ML NEBU IH SCH (09:14)
[2020-11-22 09:22] LABS: BUN/Creatinine Ratio 17; Blood Urea Nitrogen 10 mg/dL (7-17); Calcium 8.7 mg/dL (8.4-10.2); Hemolysis Index 6
[2020-11-22] MEDS: PANTOPRAZOLE 40 MG INJ IV SCH ×2 (10:33→21:42)
[2020-11-22] MEDS: FUROSEMIDE 20 MG TAB PO SCH ×2 (10:33→13:17)
[2020-11-22] MEDS ORDERED: LIDOCAINE MPF (2%) 20 MG/1 ML VIAL 5 ML ONE (11:15)
[2020-11-22] MEDS ORDERED: propofoL 200 MG/20 ML VIAL IV ONE ×2 (11:15→11:38)
[2020-11-22] MEDS: DULoxetine 30 MG CAP PO SCH ×2 (11:31→13:17)
[2020-11-22] MEDS: AZITHROMYCIN 250 MG TAB PO SCH ×2 (11:31→13:16)
[2020-11-22] MEDS: amLODIPine 5 MG TAB PO SCH ×2 (11:31→13:17)
[2020-11-22] MEDS: busPIRone 10 MG TAB PO SCH ×3 (11:31→21:42)
[2020-11-22] MEDS ORDERED: PHENYLEPHRINE/NS 1,000 MCG/10 ML SYRINGE (OR USE) IV ONE (11:48)
--- NOTE | 2020-11-22 11:48 | Operative Report ---
Operative Report Operative Report: DOS: 11/22/20 SURGEON: Jerel Stephenson MD EGD WITH BIOPSY REPORT PREOPERATIVE DIAGNOSIS and POSTOPERATIVE DIAGNOSIS: GI bleed ESTIMATED BLOOD LOSS: Minimal DESCRIPTION OF PROCEDURE: A high-resolution EGD scope was passed through the oropharynx, esophagus, stomach, and second portion of duodenum. The scope was carefully withdrawn. Retroflexion was performed in the stomach. At the end of the procedure, the scope was cleaned using normal technique. Vital signs monitored continuously throughout. SEDATION: Provided by [facility]. COMPLICATIONS: None. FINDINGS: * Normal second portion of the duodenum * Mild duodenitis duodenal bulb with erythema * Moderate gastritis of the prepyloric gastric antrum with erythema and mild edema. Biopsies were taken to rule out H. Pylori infection. A total of 5 biopsies were taken, 2 from the antrum, 1 from the incisura, 2 from the body. * 3 cm hiatal hernia * Z-line irregular at 35 cm from the incisors * Remainder of exam unremarkable RECOMMENDATIONS: Follow-up biopsy results GI bleeding appears to have been from the colonic diverticula, no active ble eding currently We will start patient on a diet, trend hemoglobin. Expect small amount of residual blood per rectum for the rest of the day and then should resolve If patient does have significant overt GI bleeding again please send for stat repeat bleeding scan
--- NOTE | 2020-11-22 11:51 | Operative Report ---
Operative Report Operative Report: DOS: 11/22/20 SURGEON: Jerel Stephenson MD COLONOSCOPY REPORT PREOPERATIVE AND POSTOPERATIVE DIAGNOSIS: GI bleed DESCRIPTION OF PROCEDURE: The colonoscope was passed to the cecum as identified by the ileocecal valve and appendiceal orifice attempted to intubate terminal ileum but was not successful). Scope was carefully withdrawn. Retroflexion was performed in the rectum. At the end of procedure, the scope was cleaned using normal technique. Vital signs monitored continuously throughout. SEDATION: Provided by [facility]. Quality of the prep was limited COMPLICATIONS: None. ESTIMATED BLOOD LOSS: none FINDINGS: * Moderate diverticulosis of the entire colon * Mild amount of residual semisolid stool in the right colon somewhat interfering with views * Mild to moderate amount of residual stool mixed with dark red blood in the descending and sigmoid colon moderately interfering with views * No active bleeding present * Remainder of exam unremarkable RECOMMENDATIONS: GI bleeding appears to have been from the colonic diverticula, no active bleeding currently. We will start patient on a diet, trend hemoglobin. Expect small amount of residual blood per rectum for the rest of the day and then should resolve If patient does have significant overt GI bleeding again please send for stat repeat bleeding scan From GI standpoint there is no clinical bleeding for 24 hours hemoglobin stable then she can be discharged with outpatient follow-up Quality this colonoscopy was not sufficient for colon cancer screening purposes As no further GI interventions available GI will sign off please call us back if we can be of any further assistance
--- NOTE | 2020-11-22 12:04 | Anesthesia Day of Surgery ---
Anesthesia Day of Surgery - Day of Surgery Patient Examined: Yes Patient H&P Reviewed: Yes Patient is NPO: Yes
--- NOTE | 2020-11-22 12:04 | Anesthesia Consultation ---
Anesthesia Consult and Med Hx Date of service: 11/22/20 - Airway Anesthetic Teeth Evaluation: Poor, Chipped, Dentures ROM Head & Neck: Adequate Mental/Hyoid Distance: Adequate Mallampati Class: Class III Intubation Access Assessment: Probably Good - Pulmonary Exam CTA: Yes - Pre-Operative Health Status ASA Pre-Surgery Classification: ASA3 Proposed Anesthetic Plan: MAC - Pulmonary Hx Smoking: Yes Hx Asthma: Yes COPD: Yes Home Oxygen Therapy: Yes (4L @ night) Hx Pneumonia: Yes - Cardiovascular System Hx Hypertension: Yes - Central Nervous System Hx Seizures: Yes Hx Psychiatric Problems: No - Endocrine Hx End Stage Renal Disease: No Hx Liver Disease: Yes (Hep B) Hx Non-Insulin Dependent Diabetes: No Hx Thyroid Disease: No - Hematic Hx Anemia: Yes - Other Systems Hx Alcohol Use: Yes Hx Substance Use: Yes (marijuana) Hx Cancer: No
--- NOTE | 2020-11-22 13:46 | Post Anesthesia Evaluation ---
- Post Anesthesia Evaluation Patient Participated: Yes Airway Patent: Yes Stable Respiratory Function: Yes Nausea/Vomiting: No Temp > 96.8F: Yes Pain Manageable: Yes Adequeate Hydration: Yes Anesthesia Complications: No
[2020-11-22] MEDS: oxyCODONE /ACETAMINOPHEN 5-325MG TAB PO PRN (18:31)
[2020-11-22] MEDS: CYCLOBENZAPRINE 10 MG TAB PO PRN (23:46)
[2020-11-22] MEDS: ALPRAZolam 0.25 MG TAB PO PRN (23:46)
[2020-11-23] MEDS: ARFORMOTEROL 15 MCG/2 ML NEBU IH SCH ×3 (05:00→20:25)
[2020-11-23] MEDS: BUDESONIDE 0.5 MG/2 ML NEBU IH SCH ×3 (05:00→20:25)
[2020-11-23] MEDS: cefTRIAXone/NS 2 GM/100 ML 2 GM/100 ML BAG IV SCH (05:00)
[2020-11-23] MEDS: GABAPENTIN 300 MG CAP PO SCH ×3 (05:02→21:40)
[2020-11-23] MEDS: HYDROmorphone 1 MG/1 ML INJ IV PRN ×4 (05:02→18:13)
[2020-11-23] MEDS: INSULIN LISPRO 100 UNIT/ML SUB-Q SCH ×4 (06:50→20:25)
--- NOTE | 2020-11-23 09:49 | Progress Note ---
Assessment and Plan Assessment and plan: Melena Diverticulosis Acute blood loss anemia. Abdominal pain. Resolved. Acute COPD exacerbation Chronic hypoxic respiratory failure. On home oxygen History of PE. On home anticoagulation Nicotine dependence. 11/21/20 patient today still has evidence of active bleeding. Did not get GoLYTELY over p.m. or bowel prep. Patient has bleeding scan scheduled for today. Patient also has possible EGD colonoscopy in a.m. To receive GoLYTELY tonight. Patient complained of abdominal pain today. Medicated with morphine. 11/23/2020. Patient reported melena this morning. However, H&H remained stable. Patient with colonoscopy yesterday that revealed moderate diverticulosis of the entire colon with no active bleeding. EGD revealed mild duodenitis of the duodenal bulb with erythema and moderate gastritis of the prepyloric gastric antrum. Follow-up biopsy results as an outpatient. History Interval history: The patient reported melena this morning Hospitalist Physical - Constitutional Vitals: Temp Pulse Resp BP Pulse Ox 99.3 F 93 H 20 126/72 96 11/23/20 07:45 11/23/20 07:45 11/23/20 09:11 11/23/20 07:45 11/23/20 07:45 General appearance: Present: no acute distress, well-nourished - EENT Eyes: Present: PERRL, EOM intact ENT: hearing intact, clear oral mucosa, dentition normal - Neck Neck: Present: supple, normal ROM - Respiratory Respiratory effort: normal Respiratory: bilateral: CTA - Cardiovascular Rhythm: regular Heart Sounds: Present: S1 & S2. Absent: gallop, rub - Extremities Extremities: no ischemia, No edema, Full ROM - Abdominal General gastrointestinal: soft, non-tender, non-distended, normal bowel sounds - Integumentary Integumentary: Present: clear, warm, dry - Neurologic Neurologic: CNII-XII intact, moves all extremities HEART Score - HEART Score Troponin: Troponin T < 0.010 ng/mL (0.00-0.029) 11/20/20 04:57 Results - Labs CBC & Chem 7: 11/22/20 08:25 11/22/20 08:25 Labs: Laboratory Last Values WBC 7.1 K/mm3 (4.5-11.0) 11/22/20 08:25 RBC 2.87 M/mm3 (3.65-5.03) L 11/22/20 08:25 Hgb 8.8 gm/dl (10.1-14.3) L 11/22/20 08:25 Hct 25.7 % (30.3-42.9) L 11/22/20 08:25 MCV 90 fl (79-97) 11/22/20 08:25 MCH 31 pg (28-32) 11/22/20 08:25 MCHC 34 % (30-34) 11/22/20 08:25 RDW 16.3 % (13.2-15.2) H 11/22/20 08:25 Plt Count 167 K/mm3 (140-440) 11/22/20 08:25 Lymph % (Auto) 35.0 % (13.4-35.0) 11/22/20 08:25 [place] % (Auto) 10.6 % (0.0-7.3) H 11/22/20 08:25 Eos % (Auto) 2.3 % (0.0-4.3) 11/22/20 08:25 Baso % (Auto) 1.1 % (0.0-1.8) 11/22/20 08:25 Lymph # (Auto) 2.5 K/mm3 (1.2-5.4) 11/22/20 08:25 [place] # (Auto) 0.8 K/mm3 (0.0-0.8) 11/22/20 08:25 Eos # (Auto) 0.2 K/mm3 (0.0-0.4) 11/22/20 08:25 Baso # (Auto) 0.1 K/mm3 (0.0-0.1) 11/22/20 08:25 Seg Neutrophils % 51.0 % (40.0-70.0) 11/22/20 08:25 Seg Neutrophils # 3.6 K/mm3 (1.8-7.7) 11/22/20 08:25 PT 15.8 Sec. (12.2-14.9) H 11/19/20 21:40 INR 1.21 (0.87-1.13) H 11/19/20 21:40 APTT 31.9 Sec. (24.2-36.6) 11/19/20 21:40 D-Dimer 208.60 ng/mlDDU (0-234) 11/19/20 23:05 Sodium 141 mmol/L (137-145) 11/22/20 08:25 Potassium 4.1 mmol/L (3.6-5.0) 11/22/20 08:25 Chloride 104.3 mmol/L (98-107) 11/22/20 08:25 Carbon Dioxide 30 mmol/L (22-30) 11/22/20 08:25 Anion Gap 11 mmol/L 11/22/20 08:25 BUN 10 mg/dL (7-17) 11/22/20 08:25 Creatinine 0.6 mg/dL (0.6-1.2) 11/22/20 08:25 Estimated GFR > 60 ml/min 11/22/20 08:25 BUN/Creatinine Ratio 17 % 11/22/20 08:25 Glucose 102 mg/dL (65-100) H 11/22/20 08:25 POC Glucose 92 mg/dL (70-105) 11/23/20 06:38 Calcium 8.7 mg/dL (8.4-10.2) 11/22/20 08:25 Ferritin 159.6 ng/mL (10.0-200.0) 11/19/20 23:05 Total Bilirubin 0.30 mg/dL (0.1-1.2) 11/19/20 23:05 AST 19 units/L (5-40) 11/19/20 23:05 ALT 11 units/L (7-56) 11/19/20 23:05 Alkaline Phosphatase 64 units/L (35-129) 11/19/20 23:05 Lactate Dehydrogenase 164 units/L (91-180) 11/19/20 23:05 Troponin T < 0.010 ng/mL (0.00-0.029) 11/20/20 04:57 C-Reactive Protein 0.20 mg/dL (0.00-1.30) 11/19/20 23:05 Total Protein 6.1 g/dL (6.3-8.2) L 11/19/20 23:05 Albumin 3.4 g/dL (3.9-5) L 11/19/20 23:05 Albumin/Globulin Ratio 1.3 % 11/19/20 23:05 Procalcitonin < 0.05 ng/mL (<0.15) 11/19/20 23:05 Coronavirus (PCR) Negative (Negative) 11/19/20 Unknown Blood Type A POSITIVE 11/19/20 21:40 Antibody Screen Negative 11/19/20 21:40 Microbiology: Microbiology 11/19/20 23:05 Peripheral/Venous Blood Culture - Preliminary NO GROWTH AFTER 72 HOURS 11/19/20 23:11 Peripheral/Venous Blood Culture - Preliminary NO GROWTH AFTER 72 HOURS Nettles/IV: Voiding Method Toilet Active Medications - Current Medications Current Medications: Generic Name Dose Route Start Last Admin Trade Name Freq PRN Reason Stop Dose Admin Acetaminophen 650 mg 11/20/20 01:30 11/21/20 22:12 Acetaminophen 325 Mg Tab PO 650 mg Q4H PRN Administration Pain MILD(1-3)/Fever >100.5/RAMAN Albuterol 2.5 mg 11/20/20 01:30 Albuterol 2.5 Mg/3 Ml Nebu IH Q4HRT PRN Shortness Of Breath Alprazolam 0.25 mg 11/20/20 20:42 11/22/20 23:46 Alprazolam 0.25 Mg Tab PO 0.25 mg Q8H PRN Administration Anxiety Amlodipine Besylate 5 mg 11/20/20 10:00 11/22/20 13:17 Amlodipine 5 Mg Tab PO 5 mg DAILY MAMIE Administration Arformoterol Tartrate 15 mcg 11/20/20 08:00 11/23/20 05:00 Arformoterol 15 Mcg/2 Ml Nebu IH Not Given Q12HRT MAMIE Azithromycin 500 mg 11/21/20 10:00 11/22/20 13:16 Azithromycin 250 Mg Tab PO 11/25/20 10:01 500 mg QDAY MAMIE Administration Protocol Budesonide 0.5 mg 11/20/20 08:00 11/23/20 05:00 Budesonide 0.5 Mg/2 Ml Nebu IH Not Given Q12HRT MAMIE Buspirone HCl 10 mg 11/20/20 10:00 11/22/20 21:42 Buspirone 10 Mg Tab PO 10 mg BID MAMIE Administration Cyclobenzaprine HCl 10 mg 11/20/20 01:30 11/22/20 23:46 Cyclobenzaprine 10 Mg Tab PO 10 mg TID PRN Administration Muscle Spasm Dextrose 50 ml 11/20/20 01:30 Dextrose 50% In Water (25gm) 50 Ml Syringe IV Q30MIN PRN Hypoglycemia Protocol Duloxetine HCl 30 mg 11/20/20 10:00 11/22/20 13:17 Duloxetine 30 Mg Cap PO 30 mg DAILY MAMIE Administration Furosemide 20 mg 11/20/20 10:00 11/22/20 13:17 Furosemide 20 Mg Tab PO 20 mg QDAY MAMIE Administration Gabapentin 300 mg 11/20/20 06:00 11/23/20 05:02 Gabapentin 300 Mg Cap PO 300 mg Q8HR MAMIE Administration Hydromorphone HCl 0.5 mg 11/20/20 01:30 11/23/20 09:11 Hydromorphone 1 Mg/1 Ml Inj IV 0.5 mg Q3H PRN Administration Pain , Severe (7-10) Sodium Chloride 1,000 mls @ 100 mls/hr 11/20/20 01:30 11/21/20 05:07 Nacl 0.9% 1000 Ml IV 100 mls/hr DIRECT MAMIE Administration Ceftriaxone Sodium 2 gm in 100 mls @ 200 mls/hr 11/20/20 01:00 11/23/20 05:00 Rocephin/Ns 2 Gm/100 Ml IV 11/24/20 01:29 Not Given Q24H MAMIE Protocol Insulin Human Lispro 0 unit 11/20/20 06:00 11/23/20 06:50 Insulin Lispro 100 Unit/Ml SUB-Q Not Given Q6HR MAMIE Protocol Ondansetron HCl 4 mg 11/20/20 06:00 11/20/20 15:35 Ondansetron 4 Mg/2 Ml Inj IV 4 mg Q8H PRN Administration Nausea And Vomiting Oxycodone/Acetaminophen 1 tab 11/20/20 01:30 11/22/20 18:31 Oxycodone /Acetaminophen 5-325mg Tab PO 1 tab Q6H PRN Administration Pain, Moderate (4-6) Pantoprazole Sodium 40 mg 11/20/20 10:00 11/22/20 21:42 Pantoprazole 40 Mg Inj IV 40 mg BID MAMIE Administration Sodium Chloride 10 ml 11/20/20 10:00 11/22/20 21:42 Sodium Chloride 0.9% 10 Ml Flush Syringe IV 10 ml BID MAMIE Administration Sodium Chloride 10 ml 11/20/20 01:30 11/22/20 15:59 Sodium Chloride 0.9% 10 Ml Flush Syringe IV 10 ml PRN PRN Administration LINE FLUSH Nutrition/Malnutrition Assess - Dietary Evaluation Nutrition/Malnutrition Findings: Nutrition Notes Start: 11/20/20 08:16 Freq: Status: Active Protocol: Document 11/20/20 08:16 ROBBIE (Rec: 11/20/20 08:21 [id number]) Nutrition Notes Need for Assessment generated from: MD Order,Education Initial or Follow up Assessment Current Diagnosis COPD Other Pertinent Diagnosis GIB, rectal bleed, diverticulosis Current Diet Clear liquids Labs/Tests Reviewed Pertinent Medications Reviewed Height 5 ft 5 in Weight 58.967 kg [place] Body Weight (kg) 56.81 BMI 21.6 Weight Status Appropriate Subjective/Other Information MD consult for diet education. Pt on hold in ED. Pt with abd pain and nausea. Burn Absent Trauma Absent #1 Nutrition Diagnosis Inadequate oral intake Etiology GIB As Evidenced by Signs and Symptoms pt on clear liquid diet and unable to meet needs Is patient on ventilator? No Is Patient Ambulatory and/or Out of Bed Yes REE-([place]. Jeor-ambulatory/OOB) [ 1476.215 NUTR.MSJOOB] Calculation Used for Recommendations [place]-[facility] Additional Notes Protein: (1-1.2g/kg) 59-71g Fluid: 1 ml/kcal Nutrition Intervention Change Diet Order: Advance as able Add Supplement/Snack (indicate name/kcal Ensure Clear BID /protein ) Provides kCal: 480 Provides Protein (gm) 16 Goal #1 Meet needs as best as possbile Anticipated Discharge Needs: Regular Follow-Up By: 11/22/20 Additional Comments F/u: diet advancement and intakes
[2020-11-23] MEDS: AZITHROMYCIN 250 MG TAB PO SCH (10:00)
[2020-11-23] MEDS: DULoxetine 30 MG CAP PO SCH (10:00)
[2020-11-23] MEDS: amLODIPine 5 MG TAB PO SCH (10:00)
[2020-11-23] MEDS: PANTOPRAZOLE 40 MG INJ IV SCH ×2 (10:00→21:40)
[2020-11-23] MEDS: FUROSEMIDE 20 MG TAB PO SCH (10:00)
[2020-11-23] MEDS: busPIRone 10 MG TAB PO SCH ×2 (10:00→21:40)
[2020-11-23 10:43] LABS: Basophils % (Auto) 0.6 % (0.0-1.8); Eosinophils # (Auto) 0.2 K/mm3 (0.0-0.4); Eosinophils % (Auto) 3.6 % (0.0-4.3); Hematocrit 27.6 % (30.3-42.9); Hemoglobin 9.4 gm/dl (10.1-14.3); Lymphocytes # (Auto) 2.3 K/mm3 (1.2-5.4); Lymphocytes % (Auto) 36.8 % (13.4-35.0); Mean Corpuscular HGB Conc 34 % (30-34); Mean Corpuscular Volume 92 fl (79-97); Monocytes # (Auto) 0.6 K/mm3 (0.0-0.8); Monocytes % (Auto) 9.9 % (0.0-7.3); Platelet Count 178 K/mm3 (140-440); Red Blood Count 3.02 M/mm3 (3.65-5.03); Red Cell Distribution Width 16.7 % (13.2-15.2)
[2020-11-23] MEDS: SODIUM CHLORIDE 0.9% 1000 ML 1,000 ML IV SCH (19:14)
[2020-11-23] MEDS: ALPRAZolam 0.25 MG TAB PO PRN (21:40)
[2020-11-23] MEDS: CYCLOBENZAPRINE 10 MG TAB PO PRN (21:40)
[2020-11-24] MEDS: cefTRIAXone/NS 2 GM/100 ML 2 GM/100 ML BAG IV SCH (02:07)
[2020-11-24] MEDS: HYDROmorphone 1 MG/1 ML INJ IV PRN ×3 (02:08→08:21)
[2020-11-24] MEDS: GABAPENTIN 300 MG CAP PO SCH ×3 (05:14→21:51)
[2020-11-24] MEDS: SODIUM CHLORIDE 0.9% 1000 ML 1,000 ML IV SCH ×2 (05:15→15:05)
[2020-11-24] MEDS: INSULIN LISPRO 100 UNIT/ML SUB-Q SCH ×4 (05:16→21:51)
[2020-11-24] MEDS: BUDESONIDE 0.5 MG/2 ML NEBU IH SCH ×2 (08:40→23:31)
[2020-11-24] MEDS: ARFORMOTEROL 15 MCG/2 ML NEBU IH SCH ×2 (08:40→23:31)
--- NOTE | 2020-11-24 09:00 | Progress Note ---
Assessment and Plan Assessment and plan: Melena Diverticulosis Acute blood loss anemia. Abdominal pain. Resolved. Acute COPD exacerbation Chronic hypoxic respiratory failure. On home oxygen History of PE. On home anticoagulation Nicotine dependence. 11/21/20 patient today still has evidence of active bleeding. Did not get GoLYTELY over p.m. or bowel prep. Patient has bleeding scan scheduled for today. Patient also has possible EGD colonoscopy in a.m. To receive GoLYTELY tonight. Patient complained of abdominal pain today. Medicated with morphine. 11/23/2020. Patient reported melena this morning. However, H&H remained stable. Patient with colonoscopy yesterday that revealed moderate diverticulosis of the entire colon with no active bleeding. EGD revealed mild duodenitis of the duodenal bulb with erythema and moderate gastritis of the prepyloric gastric antrum. Follow-up biopsy results as an outpatient. 11/24/2020. Patient reported melena last evening but nothing this morning. Patient also complained of lower crampy abdominal pain. Patient has remained stable with hemoglobin yesterday 9.4. Check H&H today. I will discuss the case with gastroenterology. Continue Protonix twice daily. Anticipate discharge next 1 to 2 days if no active bleeding History Interval history: The patient reported melena last evening. No reports of melena this morning Hospitalist Physical - Constitutional Vitals: Temp Pulse Resp BP Pulse Ox 98.5 F 74 20 138/78 96 11/24/20 03:51 11/24/20 07:30 11/24/20 08:21 11/24/20 07:30 11/24/20 08:42 General appearance: Present: no acute distress, well-nourished - EENT Eyes: Present: PERRL, EOM intact ENT: hearing intact, clear oral mucosa, dentition normal - Neck Neck: Present: supple, normal ROM - Respiratory Respiratory effort: normal Respiratory: bilateral: CTA - Cardiovascular Rhythm: regular Heart Sounds: Present: S1 & S2. Absent: gallop, rub - Extremities Extremities: no ischemia, No edema, Full ROM - Abdominal General gastrointestinal: soft, non-tender, non-distended, normal bowel sounds - Integumentary Integumentary: Present: clear, warm, dry - Neurologic Neurologic: CNII-XII intact, moves all extremities HEART Score - HEART Score Troponin: Troponin T < 0.010 ng/mL (0.00-0.029) 11/20/20 04:57 Results - Labs CBC & Chem 7: 11/23/20 10:09 11/22/20 08:25 Labs: Laboratory Last Values WBC 6.3 K/mm3 (4.5-11.0) 11/23/20 10:09 RBC 3.02 M/mm3 (3.65-5.03) L 11/23/20 10:09 Hgb 9.4 gm/dl (10.1-14.3) L 11/23/20 10:09 Hct 27.6 % (30.3-42.9) L 11/23/20 10:09 MCV 92 fl (79-97) 11/23/20 10:09 MCH 31 pg (28-32) 11/23/20 10:09 MCHC 34 % (30-34) 11/23/20 10:09 RDW 16.7 % (13.2-15.2) H 11/23/20 10:09 Plt Count 178 K/mm3 (140-440) 11/23/20 10:09 Lymph % (Auto) 36.8 % (13.4-35.0) H 11/23/20 10:09 [place] % (Auto) 9.9 % (0.0-7.3) H 11/23/20 10:09 Eos % (Auto) 3.6 % (0.0-4.3) 11/23/20 10:09 Baso % (Auto) 0.6 % (0.0-1.8) 11/23/20 10:09 Lymph # (Auto) 2.3 K/mm3 (1.2-5.4) 11/23/20 10:09 [place] # (Auto) 0.6 K/mm3 (0.0-0.8) 11/23/20 10:09 Eos # (Auto) 0.2 K/mm3 (0.0-0.4) 11/23/20 10:09 Baso # (Auto) 0.0 K/mm3 (0.0-0.1) 11/23/20 10:09 Seg Neutrophils % 49.1 % (40.0-70.0) 11/23/20 10:09 Seg Neutrophils # 3.1 K/mm3 (1.8-7.7) 11/23/20 10:09 PT 15.8 Sec. (12.2-14.9) H 11/19/20 21:40 INR 1.21 (0.87-1.13) H 11/19/20 21:40 APTT 31.9 Sec. (24.2-36.6) 11/19/20 21:40 D-Dimer 208.60 ng/mlDDU (0-234) 11/19/20 23:05 Sodium 141 mmol/L (137-145) 11/22/20 08:25 Potassium 4.1 mmol/L (3.6-5.0) 11/22/20 08:25 Chloride 104.3 mmol/L (98-107) 11/22/20 08:25 Carbon Dioxide 30 mmol/L (22-30) 11/22/20 08:25 Anion Gap 11 mmol/L 11/22/20 08:25 BUN 10 mg/dL (7-17) 11/22/20 08:25 Creatinine 0.6 mg/dL (0.6-1.2) 11/22/20 08:25 Estimated GFR > 60 ml/min 11/22/20 08:25 BUN/Creatinine Ratio 17 % 11/22/20 08:25 Glucose 102 mg/dL (65-100) H 11/22/20 08:25 POC Glucose 154 mg/dL (70-105) H 11/24/20 05:15 Calcium 8.7 mg/dL (8.4-10.2) 11/22/20 08:25 Ferritin 159.6 ng/mL (10.0-200.0) 11/19/20 23:05 Total Bilirubin 0.30 mg/dL (0.1-1.2) 11/19/20 23:05 AST 19 units/L (5-40) 11/19/20 23:05 ALT 11 units/L (7-56) 11/19/20 23:05 Alkaline Phosphatase 64 units/L (35-129) 11/19/20 23:05 Lactate Dehydrogenase 164 units/L (91-180) 11/19/20 23:05 Troponin T < 0.010 ng/mL (0.00-0.029) 11/20/20 04:57 C-Reactive Protein 0.20 mg/dL (0.00-1.30) 11/19/20 23:05 Total Protein 6.1 g/dL (6.3-8.2) L 11/19/20 23:05 Albumin 3.4 g/dL (3.9-5) L 11/19/20 23:05 Albumin/Globulin Ratio 1.3 % 11/19/20 23:05 Procalcitonin < 0.05 ng/mL (<0.15) 11/19/20 23:05 Coronavirus (PCR) Negative (Negative) 11/19/20 Unknown Blood Type A POSITIVE 11/19/20 21:40 Antibody Screen Negative 11/19/20 21:40 Microbiology: Microbiology 11/19/20 23:05 Peripheral/Venous Blood Culture - Preliminary NO GROWTH AFTER 4 DAYS 11/19/20 23:11 Peripheral/Venous Blood Culture - Preliminary NO GROWTH AFTER 4 DAYS Nettles/IV: Voiding Method Toilet Active Medications - Current Medications Current Medications: Generic Name Dose Route Start Last Admin Trade Name Freq PRN Reason Stop Dose Admin Acetaminophen 650 mg 11/20/20 01:30 11/21/20 22:12 Acetaminophen 325 Mg Tab PO 650 mg Q4H PRN Administration Pain MILD(1-3)/Fever >100.5/RAMAN Albuterol 2.5 mg 11/20/20 01:30 Albuterol 2.5 Mg/3 Ml Nebu IH Q4HRT PRN Shortness Of Breath Alprazolam 0.25 mg 11/20/20 20:42 11/23/20 21:40 Alprazolam 0.25 Mg Tab PO 0.25 mg Q8H PRN Administration Anxiety Amlodipine Besylate 5 mg 11/20/20 10:00 11/23/20 10:00 Amlodipine 5 Mg Tab PO 5 mg DAILY MAMIE Administration Arformoterol Tartrate 15 mcg 11/20/20 08:00 11/24/20 08:40 Arformoterol 15 Mcg/2 Ml Nebu IH 15 mcg Q12HRT MAMIE Administration Azithromycin 500 mg 11/21/20 10:00 11/23/20 10:00 Azithromycin 250 Mg Tab PO 11/25/20 10:01 500 mg QDAY MAMIE Administration Protocol Budesonide 0.5 mg 11/20/20 08:00 11/24/20 08:40 Budesonide 0.5 Mg/2 Ml Nebu IH 0.5 mg Q12HRT MAMIE Administration Buspirone HCl 10 mg 11/20/20 10:00 11/23/20 21:40 Buspirone 10 Mg Tab PO 10 mg BID MAMIE Administration Cyclobenzaprine HCl 10 mg 11/20/20 01:30 11/23/20 21:40 Cyclobenzaprine 10 Mg Tab PO 10 mg TID PRN Administration Muscle Spasm Dextrose 50 ml 11/20/20 01:30 Dextrose 50% In Water (25gm) 50 Ml Syringe IV Q30MIN PRN Hypoglycemia Protocol Duloxetine HCl 30 mg 11/20/20 10:00 11/23/20 10:00 Duloxetine 30 Mg Cap PO 30 mg DAILY MAMIE Administration Furosemide 20 mg 11/20/20 10:00 11/23/20 10:00 Furosemide 20 Mg Tab PO 20 mg QDAY MAMIE Administration Gabapentin 300 mg 11/20/20 06:00 11/24/20 05:14 Gabapentin 300 Mg Cap PO 300 mg Q8HR MAMIE Administration Hydromorphone HCl 0.5 mg 11/20/20 01:30 11/24/20 08:21 Hydromorphone 1 Mg/1 Ml Inj IV 0.5 mg Q3H PRN Administration Pain , Severe (7-10) Sodium Chloride 1,000 mls @ 100 mls/hr 11/20/20 01:30 11/24/20 05:15 Nacl 0.9% 1000 Ml IV 100 mls/hr DIRECT MAMIE Administration Insulin Human Lispro 0 unit 11/20/20 06:00 11/24/20 05:16 Insulin Lispro 100 Unit/Ml SUB-Q Not Given Q6HR MAMIE Protocol Ondansetron HCl 4 mg 11/20/20 06:00 11/20/20 15:35 Ondansetron 4 Mg/2 Ml Inj IV 4 mg Q8H PRN Administration Nausea And Vomiting Oxycodone/Acetaminophen 1 tab 11/20/20 01:30 11/22/20 18:31 Oxycodone /Acetaminophen 5-325mg Tab PO 1 tab Q6H PRN Administration Pain, Moderate (4-6) Pantoprazole Sodium 40 mg 11/20/20 10:00 11/23/20 21:40 Pantoprazole 40 Mg Inj IV 40 mg BID MAMIE Administration Sodium Chloride 10 ml 11/20/20 10:00 11/23/20 21:40 Sodium Chloride 0.9% 10 Ml Flush Syringe IV 10 ml BID MAMIE Administration Sodium Chloride 10 ml 11/20/20 01:30 11/22/20 15:59 Sodium Chloride 0.9% 10 Ml Flush Syringe IV 10 ml PRN PRN Administration LINE FLUSH Nutrition/Malnutrition Assess - Dietary Evaluation Nutrition/Malnutrition Findings: Nutrition Notes Start: 11/20/20 08:16 Freq: Status: Active Protocol: Document 11/20/20 08:16 (Rec: 11/20/20 08:21 [id number]) Nutrition Notes Need for Assessment generated from: MD Order,Education Initial or Follow up Assessment Current Diagnosis COPD Other Pertinent Diagnosis GIB, rectal bleed, diverticulosis Current Diet Clear liquids Labs/Tests Reviewed Pertinent Medications Reviewed Height 5 ft 5 in Weight 58.967 kg [place] Body Weight (kg) 56.81 BMI 21.6 Weight Status Appropriate Subjective/Other Information MD consult for diet education. Pt on hold in ED. Pt with abd pain and nausea. Burn Absent Trauma Absent #1 Nutrition Diagnosis Inadequate oral intake Etiology GIB As Evidenced by Signs and Symptoms pt on clear liquid diet and unable to meet needs Is patient on ventilator? No Is Patient Ambulatory and/or Out of Bed Yes REE-([facility]-ambulatory/OOB) [ 1476.215 NUTR.MSJOOB] Calculation Used for Recommendations [facility] Additional Notes Protein: (1-1.2g/kg) 59-71g Fluid: 1 ml/kcal Nutrition Intervention Change Diet Order: Advance as able Add Supplement/Snack (indicate name/kcal Ensure Clear BID /protein ) Provides kCal: 480 Provides Protein (gm) 16 Goal #1 Meet needs as best as possbile Anticipated Discharge Needs: Regular Follow-Up By: 11/22/20 Additional Comments F/u: diet advancement and intakes
[2020-11-24 10:44] LABS: Basophils % (Auto) 0.6 % (0.0-1.8); Eosinophils # (Auto) 0.3 K/mm3 (0.0-0.4); Eosinophils % (Auto) 4.2 % (0.0-4.3); Hematocrit 25.9 % (30.3-42.9); Hemoglobin 8.7 gm/dl (10.1-14.3); Lymphocytes # (Auto) 2.2 K/mm3 (1.2-5.4); Lymphocytes % (Auto) 34.9 % (13.4-35.0); Mean Corpuscular HGB Conc 34 % (30-34); Mean Corpuscular Volume 92 fl (79-97); Monocytes # (Auto) 0.7 K/mm3 (0.0-0.8); Monocytes % (Auto) 10.9 % (0.0-7.3); Platelet Count 190 K/mm3 (140-440); Red Blood Count 2.82 M/mm3 (3.65-5.03); Red Cell Distribution Width 16.7 % (13.2-15.2)
[2020-11-24] MEDS: AZITHROMYCIN 250 MG TAB PO SCH (11:21)
[2020-11-24] MEDS: amLODIPine 5 MG TAB PO SCH (11:21)
[2020-11-24] MEDS: busPIRone 10 MG TAB PO SCH ×2 (11:21→21:51)
[2020-11-24] MEDS: PANTOPRAZOLE 40 MG INJ IV SCH ×2 (11:21→21:51)
[2020-11-24] MEDS: FUROSEMIDE 20 MG TAB PO SCH (11:21)
[2020-11-24] MEDS: DULoxetine 30 MG CAP PO SCH (11:22)
[2020-11-24] MEDS: ALPRAZolam 0.25 MG TAB PO PRN (15:05)
[2020-11-24] MEDS: CYCLOBENZAPRINE 10 MG TAB PO PRN (15:05)
--- NOTE | 2020-11-24 16:34 | Event Note ---
Date: 11/24/20 I was speaking with the nurse for a different patient, she mentioned having abd pain still; hpylori negative and no source on EGD/colon Gave Rx for bentyl If pain refractory and GI assistance required, please call us back (Dr. Snow is on starting tomorrow)
[2020-11-24] MEDS: DICYCLOMINE 10 MG CAP PO SCH ×2 (16:52→21:50)
[2020-11-25] MEDS: INSULIN LISPRO 100 UNIT/ML SUB-Q SCH ×3 (00:05→13:35)
[2020-11-25] MEDS: DICYCLOMINE 10 MG CAP PO SCH ×3 (01:50→13:58)
[2020-11-25] MEDS: GABAPENTIN 300 MG CAP PO SCH ×2 (05:27→14:10)
[2020-11-25] MEDS: CYCLOBENZAPRINE 10 MG TAB PO PRN (05:27)
[2020-11-25] MEDS: ALPRAZolam 0.25 MG TAB PO PRN (05:28)
[2020-11-25] MEDS: ARFORMOTEROL 15 MCG/2 ML NEBU IH SCH (08:59)
[2020-11-25] MEDS: BUDESONIDE 0.5 MG/2 ML NEBU IH SCH (09:00)
[2020-11-25] MEDS: amLODIPine 5 MG TAB PO SCH (10:18)
[2020-11-25] MEDS: AZITHROMYCIN 250 MG TAB PO SCH (10:18)
[2020-11-25] MEDS: FUROSEMIDE 20 MG TAB PO SCH (10:18)
[2020-11-25] MEDS: DULoxetine 30 MG CAP PO SCH (10:18)
[2020-11-25] MEDS: busPIRone 10 MG TAB PO SCH (10:18)
[2020-11-25] MEDS: PANTOPRAZOLE 40 MG INJ IV SCH (10:19)
[2020-11-25] MEDS: SODIUM CHLORIDE 0.9% 1000 ML 1,000 ML IV SCH (10:20)
[2020-11-25 12:11] VITALS: BP 142/92
--- NOTE | 2020-11-25 12:45 | Discharge Summary ---
Providers - Providers Date of Admission: 11/20/20 02:50 Date of discharge: 11/25/20 Attending physician: BONITA KILPATRICK 11/20/20 00:01 Consult to Physician [CONS] Urgent Comment: Dr. Gatica spoke with Dr. Lucia @ [phone] Consulting Provider: RADHA LUCIA Physician Instructions: Reason For Exam: rectal bleed, diverticulosis on ct 11/20/20 00:34 Consult to Dietitian/Nutrition [CONS] Routine Physician Instructions: Reason For Exam: Reason for Consult: Diet education Primary care physician: [facility] LAURIE RUSSELL MD Hospitalization Condition: Stable Hospital course: 65 years old female with history of asthma, pulmonary embolism on Eliquis COPD with 4 L of home oxygen and hepatitis B was brought to the emergency room because of rectal bleeding since this morning Patient has had 5 episodes of bright red blood and dark red blood with bowel movement with and without stool. Patient describes it as "peeing blood from her rectum." Last dose of Eliquis for 5 hours prior to arrival. Patient also having intermittent epigastric pain radiating to the entire abdomen and left- sided chest pain. Pain is moderate to severe in intensity, sharp, worse in the abdomen with palpation, no alleviating factors. Positive associated nausea without vomiting. Patient admits to some mild marijuana use, drinking beer, and took an Aleve today in an attempt to alleviate the pain. 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 Last colonoscopy 2 to 3 years ago was normal as per patient. No previous history of GI bleed. EMS provided morphine 2 mg IV and normal saline 500 mL. No reports of hypotension in route to the hospital. Room air saturation currently 99%. Patient is not immunized for Covid. In the emergency room patient hemoglobin is 12.9 and [address] scan of the abdomen shows liver and spleen adrenal glands are normal. There is dilatation of the proximal and mid pancreatic duct measuring for 5 mm. There may be some thickening of the distal esophagus with small hiatal hernia. Colonic diverticulosis. No focal inflammatory change. No bowel obstruction is identified. Assessment and Plan Melena Secondary to diverticulosis Diverticulosis COLONOSCOPY REPORT FINDINGS: * Moderate diverticulosis of the entire colon * Mild amount of residual semisolid stool in the right colon somewhat interfering with views * Mild to moderate amount of residual stool mixed with dark red blood in the descending and sigmoid colon moderately interfering with views * No active bleeding present * Remainder of exam unremarkable RECOMMENDATIONS: GI bleeding appears to have been from the colonic diverticula, no active bleeding currently. We will start patient on a diet, trend hemoglobin. Expect small amount of residual blood per rectum for the rest of the day and then should resolve If patient does have significant overt GI bleeding again please send for stat repeat bleeding scan There is no clinical bleeding for 24 hours hemoglobin stable and she can be discharged with outpatient follow-up Acute blood loss anemia. Transfused Hemoglobin stable now at 9.4 Abdominal pain. Resolved. Acute COPD exacerbation Nebulizer treatments Chronic hypoxic respiratory failure. On home oxygen History of PE. On home anticoagulation Nicotine dependence. 11/21/20 patient today still has evidence of active bleeding. Did not get GoLYTELY over p.m. or bowel prep. Patient has bleeding scan scheduled for today. Patient also has possible EGD colonoscopy in a.m. To receive GoLYTELY tonight. Patient complained of abdominal pain today. Medicated with morphine. 11/23/2020. Patient reported melena this morning. However, H&H remained stable. Patient with colonoscopy yesterday that revealed moderate diverticulosis of the entire colon with no active bleeding. EGD revealed mild duodenitis of the duodenal bulb with erythema and moderate gastritis of the prepyloric gastric antrum. Follow-up biopsy results as an outpatient. 11/24/2020. Patient reported melena last evening but nothing this morning. Patient also complained of lower crampy abdominal pain. Patient has remained stable with hemoglobin yesterday 9.4. Check H&H today. I will discuss the case with gastroenterology. Continue Protonix twice daily. Anticipate discharge next 1 to 2 days if no active bleeding 11/25/2020 No bleeding from GI tract-upper or lower Patient stable for discharge Disposition: HOME / SELF CARE / HOMELESS Final Discharge Diagnosis (Prints w/discharge instructions): Lower GI bleed. Diverticulosis. COPD exacerbation. Chronic hypoxic respiratory failure. History of PE. 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 Status: Acute Core Measure Documentation - Palliative Care Palliative Care/ Comfort Measures: Not Applicable - Core Measures Any of the following diagnoses?: none Exam - Constitutional Vitals: Temp Pulse Resp BP Pulse Ox 97.9 F 86 18 142/92 96 11/25/20 12:10 11/25/20 12:10 11/25/20 12:10 11/25/20 12:10 11/25/20 12:10 General appearance: Present: no acute distress, well-nourished - EENT Eyes: Present: PERRL ENT: hearing intact, clear oral mucosa - Neck Neck: Present: supple, normal ROM - Respiratory Respiratory effort: normal Respiratory: bilateral: CTA - Cardiovascular Heart rate: 78 Rhythm: regular Heart Sounds: Present: S1 & S2. Absent: rub, click - Extremities Extremities: pulses symmetrical, No edema Peripheral Pulses: within normal limits - Abdominal General gastrointestinal: Present: soft, non-tender, non-distended, normal bowel sounds Female genitourinary: Present: normal - Integumentary Integumentary: Present: clear, warm, dry - Musculoskeletal Musculoskeletal: gait normal, strength equal bilaterally - Psychiatric Psychiatric: appropriate mood/affect, intact judgment & insight - Neurologic Neurologic: CNII-XII intact, moves all extremities Plan Activity: no restrictions Diet: low salt Follow up with: [facility] MD LAURIE [Primary Care Provider] - 7 Days RADHA LUCIA MD [Staff Physician] - 7 Days
== END 2020-11-25 17:03 | disposition home or self-care (01) | DRG 378 ==
LOC: ED 20:53 → 4A 11-20 02:50
PROVIDERS: ADMIT Hospitalist; ATTEND Internal Medicine
PROC: 0DJD8ZZ Inspection of Lower Intestinal Tract, Via Natural or Artificial Opening Endoscopic (ICD-10-PCS; principal; 2020-11-22)
PROC: 0DB68ZX Excision of Stomach, Via Natural or Artificial Opening Endoscopic, Diagnostic (ICD-10-PCS; 2020-11-22)
DX: K57.91 Diverticulosis of intestine, part unspecified, without perforation or abscess with bleeding (principal); J44.1 Chronic obstructive pulmonary disease with (acute) exacerbation; F17.213 Nicotine dependence, cigarettes, with withdrawal; D62 Acute posthemorrhagic anemia; J96.10 Chronic respiratory failure, unspecified whether with hypoxia or hypercapnia; Z20.822 Contact with and (suspected) exposure to COVID-19; Z86.711 Personal history of pulmonary embolism; Z88.6 Allergy status to analgesic agent; Z88.5 Allergy status to narcotic agent; Z88.8 Allergy status to other drugs, medicaments and biological substances; I10 Essential (primary) hypertension; Z79.01 Long term (current) use of anticoagulants; M19.90 Unspecified osteoarthritis, unspecified site; D64.9 Anemia, unspecified; F17.200 Nicotine dependence, unspecified, uncomplicated
CPT/HCPCS: 36415; 71045; 74176; 78278; 80048; 80053; 82271; 82728; 82947; 82962; 83615; 84145; 84484; 85014; 85018; 85025; 85379; 85610; 85730; 86140; 86850; 86900; 86901; 87040; 88305; 88342; 93005; 94640; 94644; 94760; 99406; G0378; A9560; C9113; J0456; J0696; J1170; J1815; J2270; J2370; J2405; J2704; J2930; J7030; U0003

== ENCOUNTER 2021-11-18 12:46 | Inpatient (IN) | payer OTHER, MEDICARE ==
[2021-11-18 13:45] LABS: Basophils # (Auto) 0.1 K/mm3 (0.0-0.1); Basophils % (Auto) 0.5 % (0.0-1.8); Eosinophils % (Auto) 0.3 % (0.0-4.3); Hematocrit 49.4 % (30.3-42.9); Lymphocytes % (Auto) 7.3 % (13.4-35.0); Mean Corpuscular HGB Conc 33 % (30-34); Mean Corpuscular Volume 91 fl (79-97); Monocytes # (Auto) 1.1 K/mm3 (0.0-0.8); Monocytes % (Auto) 7.9 % (0.0-7.3); Platelet Count 211 K/mm3 (140-440); Red Blood Count 5.43 M/mm3 (3.65-5.03); Red Cell Distribution Width 13.6 % (13.2-15.2)
[2021-11-18 13:47] LABS: Alanine Aminotransferase 11 units/L (7-56); Albumin 4.8 g/dL (3.9-5); BUN/Creatinine Ratio 12; Blood Urea Nitrogen 11 mg/dL (7-17); Calcium 10.1 mg/dL (8.4-10.2); Hemolysis Index 12
--- NOTE | 2021-11-18 13:55 | XRay Report ---
CHEST 1 VIEW 11/18/2021 12:49 PM INDICATION / CLINICAL INFORMATION: taj. COMPARISON: 08/02/2021 FINDINGS: SUPPORT DEVICES: None. HEART / MEDIASTINUM: No significant abnormality. LUNGS / PLEURA: Diffuse increased interstitial process with pulmonary opacities in bilateral lungs No pneumothorax. Signer Name: Sunday Samaniego MD Signed: 11/18/2021 1:51 PM Workstation Name: [id number]
[2021-11-18] MEDS ORDERED: fentaNYL 100 MCG/2 ML INJ IV ONE (14:46)
[2021-11-18] MEDS ORDERED: methylPREDNISolone Sod Succinate 125 MG/2 ML INJ IV ONE (14:46)
[2021-11-18] MEDS ORDERED: BUDESONIDE 0.25 MG/2 ML NEBU IH STA (14:48)
[2021-11-18] MEDS ORDERED: IPRATROPIUM/ALBUTEROL SULFATE 3 ML AMPUL.NEB IH ONE (15:09)
[2021-11-18] MEDS ORDERED: AZITHROMYCIN/NS 500 MG/250 ML 500 MG/250 ML BAG IV ONE (15:39)
[2021-11-18] MEDS ORDERED: cefTRIAXone/NS 1 GM/50 ML 1 GM/50 ML BAG IV ONE (15:39)
[2021-11-18] MEDS ORDERED: MORPHINE 4 MG/1 ML INJ IV ONE ×2 (16:13→20:54)
--- NOTE | 2021-11-18 16:13 | Emergency Department Report ---
HPI - General Chief Complaint: Dyspnea/Respdistress PUI?: No Time Seen by Provider: 11/18/21 13:50 - HPI HPI: 66-year-old female with multiple medical comorbidities brought in by EMS for evaluation of shortness of breath. EMS personnel not readily available to speak with this provider. But per nursing report, EMS personnel reported that the patient was satting in the 70s upon their arrival. She was given 2 albuterol Atrovent nebulizer treatments as well as Solu-Medrol 125 mg intramuscularly. She was placed on BiPAP and transferred emergently to the emergency department. Upon arrival, patient is observed to be dyspneic and tachypneic and complaining of pain to her head her chest and "my whole body." She complains of a yellow phlegm productive cough for the past 2 days. Patient states she does not have COVID but denies being vaccinated and states she has not had a recent confirmatory test to ascertain whether or not she has COVID. No sick contacts no travel history. Pain currently 8 out of 10. ED Past Medical Hx - Past Medical History Previous Medical History?: Yes Hx Hypertension: Yes Hx Congestive Heart Failure: Yes Hx Diabetes: Yes Hx Pulmonary Embolism: Yes Hx Liver Disease: Yes (Hep B) Hx Arthritis: Yes Hx Seizures: Yes Hx Asthma: Yes Hx COPD: Yes Hx HIV: No - Surgical History Additional Surgical History: Tumor removal 2011 - Social History Smoking Status: Never Smoker - Medications Home Medications: Home Medications Medication Instructions Recorded Confirmed Last Taken Type Acetaminophen [Acetaminophen TAB] 650 mg PO Q6HR PRN #30 tablet 08/24/18 08/03/21 08/02/21 08:00 Rx Cetirizine HCl [ZyrTEC 10mg cap] 10 mg PO DAILY #10 capsule 06/01/20 08/03/21 08/02/21 08:00 Rx oxyCODONE /ACETAMINOPHEN [Percocet 1 tab PO BID PRN #8 tablet 06/01/20 08/03/21 08/02/21 08:00 Rx 5/325 mg] Apixaban [Eliquis] 5 mg PO BID 08/03/21 08/03/21 Unknown History Apixaban [Eliquis] 5 mg PO BID 08/03/21 08/03/21 Unknown History Diclofenac EC [Voltaren] 75 mg PO BID 08/03/21 08/03/21 Unknown History Arformoterol Nebu [Brovana Nebu] 15 mcg IH Q12HRT #2 inh 08/07/21 Unknown Rx Budesonide [Pulmicort Respules] 0.5 mg IH Q12HRT #2 nebu 08/07/21 Unknown Rx DULoxetine [Cymbalta] 30 mg PO DAILY #30 cap 08/07/21 Unknown Rx Fluticasone/Salmeterol [Advair 1 puff IH BID #1 disk.w.dev 08/07/21 Unknown Rx Diskus 250-50 mcg] Glecaprevir/Pibrentasvir(Nf) 1 each PO BID #60 tab 08/07/21 Unknown Rx [Mavyret 100-40 mg (Nf)] Melatonin [Melatonin 10MG CAP] 10 mg PO QHS PRN #30 capsule 08/07/21 Unknown Rx Omeprazole 40 mg PO DAILY #30 tab 08/07/21 Unknown Rx amLODIPine 5 mg PO DAILY #30 tablet 08/07/21 Unknown Rx busPIRone [Buspar] 10 mg PO BID #60 08/07/21 Unknown Rx hydrALAZINE [Apresoline TAB] 25 mg PO TID #90 tab 08/07/21 Unknown Rx ED Review of Systems ROS: Stated complaint: ROBERT Other details as noted in HPI Comment: All other systems reviewed and negative Physical Exam - Physical Exam Vital Signs: Vital Signs 11/18/21 11/18/21 11/18/21 13:01 13:30 14:00 Temperature 98.3 F Pulse Rate 137 H 132 H 127 H Respiratory 28 H 33 H Rate Blood Pressure 147/108 149/95 Blood Pressure 159/89 [Left] O2 Sat by Pulse 99 100 99 Oximetry 11/18/21 14:30 Temperature Pulse Rate 117 H Respiratory 29 H Rate Blood Pressure 143/96 Blood Pressure [Left] O2 Sat by Pulse 100 Oximetry General: Gen: Elderly female, visibly dyspneic, extremely loquacious, speaking in one- word sentences, no drooling, no stridor, no accessory muscle usage, patient is in significant respiratory distress HEENT: Normocephalic atraumatic pupils equally round and reactive to light extraocular muscles intact sclera anicteric Neck: Full range of motion, no midline spinal tenderness palpation, no JVD, no carotid bruits, no nuchal rigidity CVS: S1-S2 regular rate and rhythm with no gallops rubs or murmurs, chest wall nontender Pulmonary: Diffuse end expiratory wheezes auscultated in all lung cordova Abdomen: Soft nondistended nontender no guarding or rebound tenderness, no palpable deformities or step-offs, normal active bowel sounds, no hepatosplenomegaly, no pulsatile masses : Deferred Extremities: No cyanosis no clubbing no edema, intact distal peripheral pulses, Integumentary: Skin normal, no petechia no purpura no abscess no lacerations no evidence of trauma no evidence of infection Neuro: Patient is awake alert and oriented to person place time situation, mentating well, cranial nerves II through XII intact, no focal neurodeficits, sensation grossly tact Psych: Calm cooperative, mood affect normal ED Course Vital Signs 11/18/21 11/18/21 11/18/21 13:01 13:30 14:00 Temperature 98.3 F Pulse Rate 137 H 132 H 127 H Respiratory 28 H 33 H Rate Blood Pressure 147/108 149/95 Blood Pressure 159/89 [Left] O2 Sat by Pulse 99 100 99 Oximetry 11/18/21 14:30 Temperature Pulse Rate 117 H Respiratory 29 H Rate Blood Pressure 143/96 Blood Pressure [Left] O2 Sat by Pulse 100 Oximetry - Reevaluation(s) Reevaluation #1: 11/18/21 16:40 Patient observed to be on BiPAP machine, respiratory rate has improved, she continues to be persistently loquacious, patient redirected ED Medical Decision Making - Lab Data Result diagrams: 11/18/21 13:08 11/18/21 13:08 - EKG Data -: EKG Interpreted by Ks EKG shows normal: sinus rhythm Rate: tachycardia - EKG Data When compared to previous EKG there are: no significant change - Radiology Data Radiology results: report reviewed - Medical Decision Making 66-year-old female presents for acute on chronic hypoxic respiratory failure. Patient placed on BiPAP here. She was given multiple albuterol nebulizer treatments. SHe was placed on bipap due to respiratory distress. Pt's respiratory status improved with bipap. Labs reviewed and diagnostic imaging results reviewed. ABG results pending at the time of the dictation of this note. Pt treated additionally, for CAP, with ceftriaxone IV and azithromycin IVSS. She has been accepted for admission to the hospitalist service for further management. Critical care attestation.: If time is entered above; I have spent that time in minutes in the direct care of this critically ill patient, excluding procedure time. ED Disposition Clinical Impression: Acute and chronic respiratory failure with hypoxia Disposition: 09 ADMITTED INPATIENT Is pt being admited?: Yes Does the pt Need Aspirin: No Condition: Stable Referrals: NAHID WALLACE MD [Primary Care Provider] - 3-5 Days
[2021-11-18] MEDS ORDERED: MAGNESIUM SULFATE 1 GM in SODIUM CHLORIDE 0.9% 50 ML IV ONE (16:43)
[2021-11-18 17:10] LABS: ABG Base Excess -5.1 mmol/L (-2.0-3.0); ABG HCO3 19.5 mmol/L (20.0-26.0); ABG Methemoglobin 0.6 % (0.0-1.5); ABG Oxygen Saturation 98.6 % (95.0-99.0); ABG PCO2 35.2 mm Hg; ABG PH 7.36 pH Units (7.350-7.450); ABG PO2 135.9 mm Hg (80.0-90.0)
[2021-11-18] MEDS ORDERED: FUROSEMIDE 40 MG/4 ML INJ IV ONE (18:46)
[2021-11-18] MEDS ORDERED: NON-FORMULARY EACH (Melatonin [Melatonin 10mg Cap] 10 MG Capsule) PO PRN (21:23)
[2021-11-18] MEDS ORDERED: ACETAMINOPHEN 325 MG TAB PO PRN ×2 (21:23→21:26)
[2021-11-18] MEDS ORDERED: ONDANSETRON 4 MG/2 ML INJ IV PRN (21:26)
[2021-11-18] MEDS ORDERED: METOCLOPRAMIDE 10 MG/2 ML INJ IV PRN (21:27)
[2021-11-18] MEDS ORDERED: NON-FORMULARY EACH (Omeprazole [Omeprazole] 40 MG Capsule.Dr) PO SCH (21:30)
[2021-11-18] MEDS ORDERED: IPRATROPIUM/ALBUTEROL SULFATE 3 ML AMPUL.NEB IH PRN (21:30)
[2021-11-18] MEDS ORDERED: NON-FORMULARY EACH (Cetirizine Hcl [Zyrtec 10mg Cap] 10 MG Capsule) PO SCH (21:30)
[2021-11-18] MEDS: CETIRIZINE 10 MG TAB PO SCH (21:30)
[2021-11-18] MEDS ORDERED: SODIUM CHLORIDE 0.9% 1000 ML 1,000 ML IV SCH (21:30)
[2021-11-18] MEDS: BUDESONIDE 0.5 MG/2 ML NEBU IH SCH (21:30)
[2021-11-18] MEDS: PANTOPRAZOLE 40 MG TAB PO SCH (21:30)
[2021-11-18] MEDS: ARFORMOTEROL 15 MCG/2 ML NEBU IH SCH (21:30)
--- NOTE | 2021-11-18 21:34 | History and Physical Report ---
History of Present Illness Date of examination: 11/18/21 Date of admission: 11/18/2021 Chief complaint: Increasing shortness of breath and wheezing for 1 day History of present illness: 66-year-old female with history of severe COPD brought in by EMS for severe shortness of breath and low oxygen saturations of 70s. Patient was placed on BiPAP and was given nebulizer treatments. He was also given Solu-Medrol 125 mg intramuscularly. Patient has a history of severe COPD. No fever or chills. Cough productive of mucoid sputum. Shortness of breath for 2 days most of the last 1 day. No exacerbating or relieving factors. Patient also complains of generalized body aches. In the emergency room patient was tachypneic and dyspneic. Patient also not vaccinated against COVID. No COVID test done recently. No potential exposure to COVID. - Past Medical History --Previous Medical History?: Yes --Hypertension: Yes --Congestive Heart Failure: Yes --Diabetes: Yes --Pulmonary Embolism: Yes --Liver Disease: Yes (Hep B) --Arthritis: Yes --Seizures: Yes --Asthma: Yes - Surgical History --Additional Surgical History: Tumor removal 2011 - Social History --Smoking Status: Never Smoker -Family history --Htn Review of Systems ROS: Constitutional no weight loss or weight gain no fever or chills HEENT no sore throat no post nasal drip no diplopia Neck no neck stiffness no lymph gland enlargement Chest and lungs increasing shortness of breath and wheezing. 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 no seizures Skin no rash no itching Psychiatric no depression no homicidal or suicidal tendencies Hematologic no lymphedema or bruising Endocrine no polydipsia no polyuria no cold intolerance no heat intolerance Medications and Allergies Allergies Allergy/AdvReac Type Severity Reaction Status Date / Time aspirin Allergy Unknown Verified 11/18/21 16:12 tramadol Allergy Unknown Verified 11/18/21 16:12 ibuprofen [From Motrin] AdvReac Nausea Verified 11/18/21 16:12 naproxen [From Aleve] AdvReac Unknown Verified 11/18/21 16:12 iv dye Allergy Hives Uncoded 11/18/21 16:12 Home Medications Medication Instructions Recorded Confirmed Last Taken Type Acetaminophen [Acetaminophen TAB] 650 mg PO Q6HR PRN #30 tablet 08/24/18 11/19/21 08/02/21 08:00 Rx Cetirizine HCl [ZyrTEC 10mg cap] 10 mg PO DAILY #10 capsule 06/01/20 11/19/21 08/02/21 08:00 Rx oxyCODONE /ACETAMINOPHEN [Percocet 1 tab PO BID PRN #8 tablet 06/01/20 11/19/21 08/02/21 08:00 Rx 5/325 mg] Apixaban [Eliquis] 5 mg PO BID 08/03/21 11/19/21 Unknown History Apixaban [Eliquis] 5 mg PO BID 08/03/21 11/19/21 Unknown History Diclofenac EC [Voltaren] 75 mg PO BID 08/03/21 11/19/21 Unknown History Arformoterol Nebu [Brovana Nebu] 15 mcg IH Q12HRT #2 inh 08/07/21 11/19/21 Unknown Rx Budesonide [Pulmicort Respules] 0.5 mg IH Q12HRT #2 nebu 08/07/21 11/19/21 Unknown Rx DULoxetine [Cymbalta] 30 mg PO DAILY #30 cap 08/07/21 11/19/21 Unknown Rx Fluticasone/Salmeterol [Advair 1 puff IH BID #1 disk.w.dev 08/07/21 11/19/21 Unknown Rx Diskus 250-50 mcg] Glecaprevir/Pibrentasvir(Nf) 1 each PO BID #60 tab 08/07/21 11/19/21 Unknown Rx [Mavyret 100-40 mg (Nf)] Melatonin [Melatonin 10MG CAP] 10 mg PO QHS PRN #30 capsule 08/07/21 11/19/21 Unknown Rx Omeprazole 40 mg PO DAILY #30 tab 08/07/21 11/19/21 Unknown Rx amLODIPine 5 mg PO DAILY #30 tablet 08/07/21 11/19/21 Unknown Rx busPIRone [Buspar] 10 mg PO BID #60 08/07/21 11/19/21 Unknown Rx hydrALAZINE [Apresoline TAB] 25 mg PO TID #90 tab 08/07/21 11/19/21 Unknown Rx Exam - Physical Exam Narrative exam: Patient is on BiPAP - Constitutional Vitals: Temp Pulse Resp BP Pulse Ox 98.3 F 112 H 29 H 142/96 100 11/18/21 13:01 11/18/21 19:31 11/18/21 19:31 11/18/21 19:31 11/18/21 19:31 General appearance: Present: severe distress, well-nourished - EENT Eyes: Present: PERRL ENT: hearing intact, clear oral mucosa - Neck Neck: Present: supple, normal ROM - Respiratory Respiratory effort: normal Respiratory: bilateral: diminished, rhonchi, wheezing - Cardiovascular Heart rate: 98 Rhythm: regular Heart Sounds: Present: S1 & S2. Absent: rub, click - Extremities Extremities: no ischemia, pulses intact, pulses symmetrical, No edema Peripheral Pulses: within normal limits - Abdominal General gastrointestinal: Present: soft, non-tender, non-distended, normal bowel sounds Female genitourinary: Present: normal - Rectal Rectal Exam: deferred - Integumentary Integumentary: Present: clear, warm, dry - Musculoskeletal Musculoskeletal: gait normal, strength equal bilaterally - Psychiatric Psychiatric: appropriate mood/affect, intact judgment & insight - Neurologic Neurologic: CNII-XII intact, moves all extremities - Allied Health Allied health notes reviewed: nursing, case management HEART Score - HEART Score History: Moderately suspicious Risk factors: > 3 risk factors or hx of atherosclerotic disease Troponin: Troponin T < 0.010 ng/mL (0.00-0.029) 11/18/21 13:08 Troponin: < normal limit - Critical Actions Critical Actions: 0-3 pts:0.9-1.7%risk of adverse cardiac event.Candidate for discharge Results - Labs CBC & Chem 7: 11/18/21 13:08 11/18/21 13:08 Labs: Laboratory Last Values WBC 14.2 K/mm3 (4.5-11.0) H 11/18/21 13:08 RBC 5.43 M/mm3 (3.65-5.03) H 11/18/21 13:08 Hgb 16.0 gm/dl (10.1-14.3) H 11/18/21 13:08 Hct 49.4 % (30.3-42.9) H 11/18/21 13:08 MCV 91 fl (79-97) 11/18/21 13:08 MCH 30 pg (28-32) 11/18/21 13:08 MCHC 33 % (30-34) 11/18/21 13:08 RDW 13.6 % (13.2-15.2) 11/18/21 13:08 Plt Count 211 K/mm3 (140-440) 11/18/21 13:08 Lymph % (Auto) 7.3 % (13.4-35.0) L 11/18/21 13:08 [place] % (Auto) 7.9 % (0.0-7.3) H 11/18/21 13:08 Eos % (Auto) 0.3 % (0.0-4.3) 11/18/21 13:08 Baso % (Auto) 0.5 % (0.0-1.8) 11/18/21 13:08 Lymph # (Auto) 1.0 K/mm3 (1.2-5.4) L 11/18/21 13:08 [place] # (Auto) 1.1 K/mm3 (0.0-0.8) H 11/18/21 13:08 Eos # (Auto) 0.0 K/mm3 (0.0-0.4) 11/18/21 13:08 Baso # (Auto) 0.1 K/mm3 (0.0-0.1) 11/18/21 13:08 Seg Neutrophils % 84.0 % (40.0-70.0) H 11/18/21 13:08 Seg Neutrophils # 11.9 K/mm3 (1.8-7.7) H 11/18/21 13:08 ABG pH 7.360 pH Units (7.350-7.450) 11/18/21 16:56 ABG pCO2 35.2 mm Hg 11/18/21 16:56 ABG pO2 135.9 mm Hg (80.0-90.0) H 11/18/21 16:56 ABG HCO3 19.5 mmol/L (20.0-26.0) L 11/18/21 16:56 ABG O2 Saturation 98.6 % (95.0-99.0) 11/18/21 16:56 ABG O2 Content 21.1 (0.0-44) 11/18/21 16:56 ABG Base Excess -5.1 mmol/L (-2.0-3.0) L 11/18/21 16:56 ABG Hemoglobin 15.4 gm/dl (12.0-16.0) 11/18/21 16:56 ABG Carboxyhemoglobin 1.5 % (0.0-5.0) 11/18/21 16:56 ABG Methemoglobin 0.6 % (0.0-1.5) 11/18/21 16:56 Oxyhemoglobin 96.6 % (95.0-99.0) 11/18/21 16:56 FiO2 40 % 11/18/21 16:56 Sodium 133 mmol/L (137-145) L 11/18/21 13:08 Potassium 4.1 mmol/L (3.6-5.0) 11/18/21 13:08 Chloride 95.3 mmol/L (98-107) L 11/18/21 13:08 Carbon Dioxide 19 mmol/L (22-30) L 11/18/21 13:08 Anion Gap 23 mmol/L 11/18/21 13:08 BUN 11 mg/dL (7-17) 11/18/21 13:08 Creatinine 0.9 mg/dL (0.6-1.2) 11/18/21 13:08 Estimated GFR > 60 ml/min 11/18/21 13:08 BUN/Creatinine Ratio 12 % 11/18/21 13:08 Glucose 142 mg/dL (65-100) H 11/18/21 13:08 Calcium 10.1 mg/dL (8.4-10.2) 11/18/21 13:08 Total Bilirubin 1.60 mg/dL (0.1-1.2) H 11/18/21 13:08 AST 20 units/L (5-40) 11/18/21 13:08 ALT 11 units/L (7-56) 11/18/21 13:08 Alkaline Phosphatase 89 units/L (35-129) 11/18/21 13:08 Troponin T < 0.010 ng/mL (0.00-0.029) 11/18/21 13:08 NT-Pro-B Natriuret Pep 1139 pg/mL (0-900) H 11/18/21 13:08 Total Protein 8.0 g/dL (6.3-8.2) 11/18/21 13:08 Albumin 4.8 g/dL (3.9-5) 11/18/21 13:08 Albumin/Globulin Ratio 1.5 % 11/18/21 13:08 - Imaging and Cardiology Chest x-ray: report reviewed Imaging and Cardiology: Chest x-ray Diffuse increased interstitial process with pulmonary opacities in bilateral lungs. No pneumothorax. Assessment and Plan Advance Directives: Yes (Full code) VTE prophylaxis?: Chemical Plan of care discussed with patient/family: Yes - Patient Problems (1) SIRS (systemic inflammatory response syndrome) Current Visit: Yes Status: Acute Plan to address problem: Patient has a high white count of 14,200. Clinical picture consistent with systemic inflammatory response syndrome. (2) Acute respiratory failure with hypoxia Current Visit: Yes Status: Acute Plan to address problem: Severely hypoxic with oxygen saturations around 70s Patient on BiPAP Intubation if necessary (3) COPD with acute exacerbation Current Visit: Yes Status: Acute Plan to address problem: Patient initiated on IV Solu-Medrol 80 mg every 8 hours, IV Rocephin and Zithromax and duo nebs [id number] and as needed. Patient on BiPAP. Intubation if necessary. Pulmonary consult requested. (4) Polycythemia due to fall in plasma volume Current Visit: Yes Status: Acute Plan to address problem: IV fluids for now. (5) History of pulmonary embolism Current Visit: Yes Status: Acute Plan to address problem: Continue Eliquis 5 mg twice a day. (6) T2DM (type 2 diabetes mellitus) Current Visit: Yes Status: Chronic Qualifiers: Diabetes mellitus senior care insulin use: unspecified senior care insulin use status Plan to address problem: Continue coverage and check hemoglobin A1c. (7) DVT prophylaxis Current Visit: Yes Status: Acute Plan to address problem: On apixaban and GI prophylaxis. (8) Advance care planning Current Visit: Yes Status: Acute Plan to address problem: Disease education conducted, care plan discussed preoperative diagnosis and prognosis discussed. Patient is full code. Patient acknowledged understanding of care plan. +30 minutes.
[2021-11-18] MEDS ORDERED: MELATONIN 5 MG TAB PO PRN (21:50)
[2021-11-18] MEDS ORDERED: ALBUTEROL 2.5 MG/3 ML NEBU IH PRN (21:52)
[2021-11-18] MEDS ORDERED: NON-FORMULARY EACH (Fluticasone/Salmeterol [Advair Diskus 250-50 Mcg] 1 EACH Blst.W.Dev) IH SCH (22:00)
[2021-11-18] MEDS: DICLOFENAC DR 75 MG TAB PO SCH (22:00)
[2021-11-18] MEDS ORDERED: PIBRENTASVIR PO SCH (22:00)
[2021-11-18] MEDS ORDERED: NON-FORMULARY EACH (Apixaban 5 MG Tablet) PO SCH (22:00)
[2021-11-18] MEDS: APIXABAN 5 MG TAB PO SCH (22:00)
[2021-11-18] MEDS: DULoxetine 30 MG CAP PO SCH (22:00)
[2021-11-18] MEDS ORDERED: GLECAPREVIR PO SCH (22:00)
[2021-11-18] MEDS: methylPREDNISolone Sod Succinate 125 MG/2 ML INJ IV SCH (22:00)
[2021-11-18] MEDS: busPIRone 10 MG TAB PO SCH (22:00)
[2021-11-19] MEDS: amLODIPine 5 MG TAB PO SCH ×2 (00:11→12:47)
[2021-11-19] MEDS: oxyCODONE /ACETAMINOPHEN 5-325MG TAB PO PRN ×2 (02:16→17:30)
[2021-11-19] MEDS: methylPREDNISolone Sod Succinate 125 MG/2 ML INJ IV SCH ×3 (06:04→22:59)
[2021-11-19] MEDS: MORPHINE 2 MG/1 ML INJ IV PRN ×2 (06:26→15:31)
[2021-11-19 07:07] LABS: Hematocrit 41.8 % (30.3-42.9); Hemoglobin 14.1 gm/dl (10.1-14.3); Mean Corpuscular HGB Conc 34 % (30-34); Mean Corpuscular Volume 91 fl (79-97); Platelet Count 190 K/mm3 (140-440); Red Blood Count 4.57 M/mm3 (3.65-5.03)
[2021-11-19 07:24] LABS: Albumin 4.3 g/dL (3.9-5); Calcium 9.4 mg/dL (8.4-10.2)
[2021-11-19] MEDS: hydrALAZINE 25 MG TAB PO SCH ×3 (07:57→23:25)
[2021-11-19] MEDS: ARFORMOTEROL 15 MCG/2 ML NEBU IH SCH ×2 (08:23→20:37)
[2021-11-19] MEDS: IPRATROPIUM/ALBUTEROL SULFATE 3 ML AMPUL.NEB IH SCH ×4 (08:23→20:37)
[2021-11-19] MEDS: BUDESONIDE 0.5 MG/2 ML NEBU IH SCH ×2 (08:24→20:37)
[2021-11-19] MEDS ORDERED: AZITHROMYCIN/NS 500 MG/250 ML 500 MG/250 ML BAG IV SCH (10:00)
--- NOTE | 2021-11-19 10:51 | Progress Note ---
Assessment and Plan Assessment and plan: #Acute on chronic hypoxic respiratory failureimproving #Acute on chronic COPD exacerbation #SIRS with organ failure WBC 14 - etiology: COPD exacerbation versus acute heart failure versus infectious etiology - currently requiring 5 L nasal cannula supplemental O2 (baseline 4 L nasal cannula); wean as tolerated - continue azithromycin 2500mg daily (ends 11/21/2021) and rocephin 1g daily (ends 11/22/2021) -IV methylprednisolone 60 mg every 8 hours, DuoNebs, and albuterol nebs - Continue protocol: continue pulse oximetry, wean oxygen as tolerated, ordered incentive spirometry and educated patient on how to use it and its importance. -Pulmonology consulted; pending recs Pending coronavirus PCR. #Possible acute heart failure proBNP 1139 Pending TTE to evaluate cardiac function. Consider cardiology consult if patient found to have acute heart failure. #RHINA secondary to vasomotor nephropathy Creatinine 1.4 (baseline within normal limits) Renally dose meds and avoid nephrotoxic drugs. Starting IV fluid res uscitation at 75 cc/hour. Consider nephrology consult if creatinine worsens. Continue to monitor with BMP. #Hypertension - home medications: Amlodipine 5 mg daily, hydralazine 25 mg 3 times daily - current medications: Amlodipine 5 mg daily, p.o. hydralazine 25 mg 3 times daily - SBP goal <160 and DBP goal <90 while inpatient - continue to monitor #History of pulmonary embolism Continue home apixaban 5 mg twice daily #Non-insulin dependent type II diabetes mellitus - hemoglobin A1c: Unknown - home regimen: Unknown - current regimen: Moderate SSI - blood glucose goal 140-180 while inpatient - continue to monitor #GERD Continue home omeprazole 40 mg daily #Insomnia Continue home melatonin 10 mg nightly as needed #Advanced care planning -Disease education conducted, care plan discussed, diagnoses discussed, prognosis discussed, and patient acknowledges understanding with care plan -Time: +30 min Disposition Plan: Continue medical management Total Time Spent with Patient (Minutes): 45 minutes History Interval history: No acute events overnight. Hospitalist Physical - Constitutional Vitals: Temp Pulse Resp BP Pulse Ox 97.8 F 86 22 129/84 98 11/19/21 04:31 11/19/21 09:09 11/19/21 09:09 11/19/21 07:57 11/19/21 08:39 General appearance: Present: no acute distress, well-nourished - EENT Eyes: Present: PERRL, EOM intact ENT: hearing intact, clear oral mucosa, dentition normal - Neck Neck: Present: supple, normal ROM - Respiratory Respiratory effort: labored (Unable to speak in complete sentences) Respiratory: bilateral: diminished (On 3 L nasal cannula (baseline 4 L)), wheezing - Cardiovascular Rhythm: regular Heart Sounds: Present: S1 & S2 - Extremities Extremities: no ischemia, pulses intact, pulses symmetrical, No edema, normal temperature, normal color, Full ROM Peripheral Pulses: within normal limits - Abdominal General gastrointestinal: soft, non-tender, non-distended, normal bowel sounds - Integumentary Integumentary: Present: clear, warm, dry - Psychiatric Psychiatric: appropriate mood/affect, intact judgment & insight, memory intact, cooperative - Neurologic Neurologic: CNII-XII intact, moves all extremities - Allied Health Allied health notes reviewed: nursing HEART Score - HEART Score Risk factors: > 3 risk factors or hx of atherosclerotic disease Troponin: Troponin T < 0.010 ng/mL (0.00-0.029) 11/18/21 13:08 Troponin: < normal limit - Critical Actions Critical Actions: 0-3 pts:0.9-1.7%risk of adverse cardiac event.Candidate for discharge Results - Labs CBC & Chem 7: 11/19/21 06:31 11/19/21 06:31 Labs: Laboratory Last Values WBC 14.5 K/mm3 (4.5-11.0) H 11/19/21 06:31 RBC 4.57 M/mm3 (3.65-5.03) 11/19/21 06:31 Hgb 14.1 gm/dl (10.1-14.3) 11/19/21 06:31 Hct 41.8 % (30.3-42.9) D 11/19/21 06:31 MCV 91 fl (79-97) 11/19/21 06:31 MCH 31 pg (28-32) 11/19/21 06:31 MCHC 34 % (30-34) 11/19/21 06:31 RDW 14.0 % (13.2-15.2) 11/19/21 06:31 Plt Count 190 K/mm3 (140-440) 11/19/21 06:31 Lymph % (Auto) 7.3 % (13.4-35.0) L 11/18/21 13:08 [place] % (Auto) 7.9 % (0.0-7.3) H 11/18/21 13:08 Eos % (Auto) 0.3 % (0.0-4.3) 11/18/21 13:08 Baso % (Auto) 0.5 % (0.0-1.8) 11/18/21 13:08 Lymph # (Auto) 1.0 K/mm3 (1.2-5.4) L 11/18/21 13:08 [place] # (Auto) 1.1 K/mm3 (0.0-0.8) H 11/18/21 13:08 Eos # (Auto) 0.0 K/mm3 (0.0-0.4) 11/18/21 13:08 Baso # (Auto) 0.1 K/mm3 (0.0-0.1) 11/18/21 13:08 Seg Neutrophils % Belt Glass Sander 11/19/21 06:31 Seg Neutrophils # 11.9 K/mm3 (1.8-7.7) H 11/18/21 13:08 D-Dimer 530.28 ng/mlDDU (0-234) H 11/19/21 07:47 ABG pH 7.360 pH Units (7.350-7.450) 11/18/21 16:56 ABG pCO2 35.2 mm Hg 11/18/21 16:56 ABG pO2 135.9 mm Hg (80.0-90.0) H 11/18/21 16:56 ABG HCO3 19.5 mmol/L (20.0-26.0) L 11/18/21 16:56 ABG O2 Saturation 98.6 % (95.0-99.0) 11/18/21 16:56 ABG O2 Content 21.1 (0.0-44) 11/18/21 16:56 ABG Base Excess -5.1 mmol/L (-2.0-3.0) L 11/18/21 16:56 ABG Hemoglobin 15.4 gm/dl (12.0-16.0) 11/18/21 16:56 ABG Carboxyhemoglobin 1.5 % (0.0-5.0) 11/18/21 16:56 ABG Methemoglobin 0.6 % (0.0-1.5) 11/18/21 16:56 Oxyhemoglobin 96.6 % (95.0-99.0) 11/18/21 16:56 FiO2 40 % 11/18/21 16:56 Sodium 135 mmol/L (137-145) L 11/19/21 06:31 Potassium 4.5 mmol/L (3.6-5.0) 11/19/21 06:31 Chloride 98.8 mmol/L (98-107) 11/19/21 06:31 Carbon Dioxide 23 mmol/L (22-30) 11/19/21 06:31 Anion Gap 18 mmol/L 11/19/21 06:31 BUN 23 mg/dL (7-17) H 11/19/21 06:31 Creatinine 1.4 mg/dL (0.6-1.2) H D 11/19/21 06:31 Estimated GFR 46 ml/min 11/19/21 06:31 BUN/Creatinine Ratio 16 % 11/19/21 06:31 Glucose 165 mg/dL (65-100) H 11/19/21 06:31 Calcium 9.4 mg/dL (8.4-10.2) 11/19/21 06:31 Total Bilirubin 0.60 mg/dL (0.1-1.2) 11/19/21 06:31 AST 15 units/L (5-40) 11/19/21 06:31 ALT 9 units/L (7-56) 11/19/21 06:31 Alkaline Phosphatase 77 units/L (35-129) 11/19/21 06:31 Troponin T < 0.010 ng/mL (0.00-0.029) 11/18/21 13:08 NT-Pro-B Natriuret Pep 1139 pg/mL (0-900) H 11/18/21 13:08 Total Protein 7.4 g/dL (6.3-8.2) 11/19/21 06:31 Albumin 4.3 g/dL (3.9-5) 11/19/21 06:31 Albumin/Globulin Ratio 1.4 % 11/19/21 06:31 Nettles/IV: Voiding Method Toilet Active Medications - Current Medications Current Medications: Generic Name Dose Route Start Last Admin Trade Name Freq PRN Reason Stop Dose Admin Acetaminophen 650 mg 11/18/21 21:26 Acetaminophen 325 Mg Tab PO Q4H PRN Pain MILD(1-3)/Fever >100.5/RAMAN Albuterol 2.5 mg 11/18/21 21:52 Albuterol 2.5 Mg/3 Ml Nebu IH Q3HRT PRN Wheezing Albuterol/Ipratropium 1 ampul 11/19/21 08:00 11/19/21 08:23 Ipratropium/Albuterol Sulfate 3 Ml Ampul.Neb IH 1 ampul QIDRT MAMIE Administration Amlodipine Besylate 5 mg 11/18/21 22:00 11/19/21 00:11 Amlodipine 5 Mg Tab PO 5 mg DAILY MAMIE Administration Apixaban 5 mg 11/18/21 22:00 11/18/21 22:00 Apixaban 5 Mg Tab PO 5 mg BID MAMIE Administration Arformoterol Tartrate 15 mcg 11/18/21 21:30 11/19/21 08:23 Arformoterol 15 Mcg/2 Ml Nebu IH 15 mcg Q12HRT MAMIE Administration Budesonide 0.5 mg 11/18/21 21:30 11/19/21 08:24 Budesonide 0.5 Mg/2 Ml Nebu IH 0.5 mg Q12HRT MAMIE Administration Buspirone HCl 10 mg 11/18/21 22:00 11/18/21 22:00 Buspirone 10 Mg Tab PO 10 mg BID MAMIE Administration Cetirizine HCl 10 mg 11/18/21 21:30 11/18/21 21:30 Cetirizine 10 Mg Tab PO 10 mg DAILY MAMIE Administration Diclofenac Sodium 75 mg 11/18/21 22:00 11/18/21 22:[address] 75 Mg Tab PO 75 mg BID MAMIE Administration Duloxetine HCl 30 mg 11/18/21 22:00 11/18/21 22:00 Duloxetine 30 Mg Cap PO 30 mg DAILY MAMIE Administration Hydralazine HCl 25 mg 11/19/21 08:00 11/19/21 07:57 Hydralazine 25 Mg Tab PO 25 mg TID MAMIE Administration Azithromycin 500 mg in 250 mls @ 250 mls/hr 11/19/21 10:00 Zithromax/Ns IV Q24H MAMIE Ceftriaxone Sodium 2 gm in 100 mls @ 200 mls/hr 11/19/21 10:00 Rocephin/Ns 2 Gm/100 Ml IV Q24HR MAMIE Protocol Melatonin 10 mg 11/18/21 21:50 Melatonin 5 Mg Tab PO QHS PRN Insomnia Methylprednisolone Sodium Succinate 80 mg 11/18/21 22:00 11/19/21 06:04 Methylprednisolone Sod Succinate 125 Mg/2 Ml Inj IV 80 mg Q8HR MAMIE Administration Metoclopramide HCl 10 mg 11/18/21 21:27 Metoclopramide 10 Mg/2 Ml Inj IV Q6H PRN Nausea And Vomiting Miscellaneous Medication 1 each 11/18/21 22:00 Glecaprevir/Pibrentasvir(Nf) PO BID MAMIE Morphine Sulfate 2 mg 11/18/21 21:27 11/19/21 06:26 Morphine 2 Mg/1 Ml Inj IV 2 mg Q4H PRN Administration Pain, Moderate (4-6) Ondansetron HCl 4 mg 11/18/21 21:26 Ondansetron 4 Mg/2 Ml Inj IV Q3H PRN Nausea And Vomiting Oxycodone/Acetaminophen 1 tab 11/18/21 21:27 11/19/21 02:16 Oxycodone /Acetaminophen 5-325mg Tab PO 1 tab Q6H PRN Administration Pain, Moderate (4-6) Pantoprazole Sodium 40 mg 11/18/21 21:30 11/18/21 21:30 Pantoprazole 40 Mg Tab PO 40 mg DAILY MAMIE Administration Sodium Chloride 10 ml 11/18/21 22:00 11/18/21 22:00 Sodium Chloride 0.9% 10 Ml Flush Syringe IV 10 ml BID MAMIE Administration Sodium Chloride 10 ml 11/18/21 21:26 Sodium Chloride 0.9% 10 Ml Flush Syringe IV PRN PRN LINE FLUSH
[2021-11-19] MEDS ORDERED: LACTATED RINGERS 1,000 ML IV SCH (11:00)
[2021-11-19 12:40] LABS: Basophils % (Manual) 0 % (0.0-1.8); Eosinophils % (Manual) 0 % (0.0-4.3); Platelet Estimate Consistent w Auto; RBC Morphology Normal; Total Cells Counted 100
[2021-11-19] MEDS: DICLOFENAC DR 75 MG TAB PO SCH ×2 (12:44→22:58)
[2021-11-19] MEDS: AZITHROMYCIN 250 MG TAB PO SCH (12:46)
[2021-11-19] MEDS: DULoxetine 30 MG CAP PO SCH (12:46)
[2021-11-19] MEDS: APIXABAN 5 MG TAB PO SCH ×2 (12:46→22:58)
[2021-11-19] MEDS: CETIRIZINE 10 MG TAB PO SCH (12:46)
[2021-11-19] MEDS: PANTOPRAZOLE 40 MG TAB PO SCH (12:46)
[2021-11-19] MEDS: cefTRIAXone/NS 2 GM/100 ML 2 GM/100 ML BAG IV SCH (12:50)
--- NOTE | 2021-11-19 14:21 | Event Note ---
Date: 11/19/[address] Godinez, will cancel my consult.
[2021-11-19] MEDS: busPIRone 10 MG TAB PO SCH ×2 (15:30→23:00)
[2021-11-20] MEDS: MORPHINE 2 MG/1 ML INJ IV PRN ×2 (03:27→22:20)
[2021-11-20] MEDS ORDERED: diphenhydrAMINE 50 MG/ML VIAL ONE (04:39)
[2021-11-20] MEDS ORDERED: diphenhydrAMINE 50 MG/ML VIAL IV ONE (04:42)
[2021-11-20] MEDS: methylPREDNISolone Sod Succinate 125 MG/2 ML INJ IV SCH ×3 (05:07→21:58)
[2021-11-20 05:32] LABS: Hemoglobin 13.9 gm/dl (10.1-14.3); Mean Corpuscular HGB Conc 33 % (30-34); Mean Corpuscular Volume 91 fl (79-97); Platelet Count 193 K/mm3 (140-440); Red Cell Distribution Width 13.9 % (13.2-15.2)
[2021-11-20 05:50] LABS: Albumin 4.1 g/dL (3.9-5); Calcium 9.4 mg/dL (8.4-10.2)
[2021-11-20 06:13] LABS: Basophils % (Manual) 0 % (0.0-1.8); Eosinophils % (Manual) 0 % (0.0-4.3); Platelet Estimate Consistent w Auto; Total Cells Counted 100
[2021-11-20] MEDS: oxyCODONE /ACETAMINOPHEN 5-325MG TAB PO PRN ×2 (06:26→17:00)
[2021-11-20] MEDS: ARFORMOTEROL 15 MCG/2 ML NEBU IH SCH ×2 (08:04→20:36)
[2021-11-20] MEDS: BUDESONIDE 0.5 MG/2 ML NEBU IH SCH ×2 (08:04→20:36)
[2021-11-20] MEDS: IPRATROPIUM/ALBUTEROL SULFATE 3 ML AMPUL.NEB IH SCH ×4 (08:04→20:36)
[2021-11-20] MEDS: hydrALAZINE 25 MG TAB PO SCH ×3 (08:09→22:00)
--- NOTE | 2021-11-20 09:11 | Consultation ---
History of Present Illness Consult date: 11/20/21 Requesting physician: TERESA LIM History of present illness: 66-year-old female with history of severe COPD brought in by EMS for severe shortness of breath and low oxygen saturations of 70s. Patient was placed on BiPAP and was given nebulizer treatments. He was also given Solu-Medrol 125 mg intramuscularly. Patient has a history of severe COPD. No fever or chills. Cough productive of mucoid sputum. Shortness of breath for 2 days most of the last 1 day. No exacerbating or relieving factors. Patient also complains of generalized body aches. In the emergency room patient was tachypneic and dyspneic She states she had facial del castillo and was treated in [place] 1 months ago. Seen and examined. Vitals, labs, medications, chart and imaging reviewed. Discussed with nursing and respiratory staff. She is still short of breath and is wheezing Complains of pain all over and is requesting for morphine Previous Medical History?: Yes Hx Hypertension: Yes Hx Congestive Heart Failure: Yes Hx Diabetes: Yes Hx Pulmonary Embolism: Yes Hx Liver Disease: Yes (Hep B) Hx Arthritis: Yes Hx Seizures: Yes Hx Asthma: Yes Hx COPD: Yes Hx HIV: No Medications and Allergies Allergies Allergy/AdvReac Type Severity Reaction Status Date / Time aspirin Allergy Unknown Verified 11/18/21 16:12 tramadol Allergy Unknown Verified 11/18/21 16:12 ibuprofen [From Motrin] AdvReac Nausea Verified 11/18/21 16:12 naproxen [From Aleve] AdvReac Unknown Verified 11/18/21 16:12 iv dye Allergy Hives Uncoded 11/18/21 16:12 Home Medications Medication Instructions Recorded Confirmed Last Taken Type Cetirizine HCl [ZyrTEC 10mg cap] 10 mg PO DAILY #10 capsule 06/01/20 11/19/21 08/02/21 08:00 Rx Apixaban [Eliquis] 5 mg PO BID 08/03/21 11/19/21 Unknown History Diclofenac EC [Voltaren] 75 mg PO BID 08/03/21 11/19/21 Unknown History Arformoterol Nebu [Brovana Nebu] 15 mcg IH Q12HRT #2 inh 08/07/21 11/19/21 Unknown Rx Budesonide [Pulmicort Respules] 0.5 mg IH Q12HRT #2 nebu 08/07/21 11/19/21 Unknown Rx DULoxetine [Cymbalta] 30 mg PO DAILY #30 cap 08/07/21 11/19/21 Unknown Rx Melatonin [Melatonin 10MG CAP] 10 mg PO QHS PRN #30 capsule 08/07/21 11/19/21 Unknown Rx Omeprazole 40 mg PO DAILY #30 tab 08/07/21 11/19/21 Unknown Rx amLODIPine 5 mg PO DAILY #30 tablet 08/07/21 11/19/21 Unknown Rx busPIRone [Buspar] 10 mg PO BID #60 08/07/21 11/19/21 Unknown Rx hydrALAZINE [Apresoline TAB] 25 mg PO TID #90 tab 08/07/21 11/19/21 Unknown Rx Acetaminophen [Non-Aspirin Extra 500 mg PO Q4H PRN 11/20/21 11/20/21 Unknown History Strength] Albuterol Mdi (or & Nicu Only) 2 puff IH QID PRN 11/20/21 11/20/21 Unknown History [ProAir HFA Inhaler] Budesonide/Formoterol Fumarate 2 puff IH BID 11/20/21 11/20/21 Unknown History [Symbicort 160-4.5 Mcg Inhaler] oxyCODONE [roxiCODONE] 5 mg PO Q4H PRN 11/20/21 11/20/21 Unknown History Active Meds: Active Medications Acetaminophen (Acetaminophen 325 Mg Tab) 650 mg PO Q4H PRN PRN Reason: Pain MILD(1-3)/Fever >100.5/RAMAN Albuterol (Albuterol 2.5 Mg/3 Ml Nebu) 2.5 mg IH Q3HRT PRN PRN Reason: Wheezing Albuterol/Ipratropium (Ipratropium/Albuterol Sulfate 3 Ml Ampul.Neb) 1 ampul IH QIDRT [facility] Last Admin: 11/19/21 20:37 Dose: 1 ampul Amlodipine Besylate (Amlodipine 5 Mg Tab) 5 mg PO DAILY [facility] Last Admin: 11/19/21 12:47 Dose: 5 mg Apixaban (Apixaban 5 Mg Tab) 5 mg PO BID [facility] Last Admin: 11/19/21 22:58 Dose: 5 mg Arformoterol Tartrate (Arformoterol 15 Mcg/2 Ml Nebu) 15 mcg IH Q12HRT [facility] Last Admin: 11/19/21 20:37 Dose: 15 mcg Azithromycin (Azithromycin 250 Mg Tab) 500 mg PO QDAY [facility]; Protocol Stop: 11/21/21 10:01 Last Admin: 11/19/21 12:46 Dose: 500 mg Budesonide (Budesonide 0.5 Mg/2 Ml Nebu) 0.5 mg IH Q12HRT [facility] Last Admin: 11/19/21 20:37 Dose: 0.5 mg Buspirone HCl (Buspirone 10 Mg Tab) 10 mg PO BID [facility] Last Admin: 11/19/21 23:00 Dose: 10 mg Cetirizine HCl (Cetirizine 10 Mg Tab) 10 mg PO DAILY [facility] Last Admin: 11/19/21 12:46 Dose: 10 mg Diclofenac Sodium (Diclofenac Dr 75 Mg Tab) 75 mg PO BID [facility] Last Admin: 11/19/21 22:58 Dose: 75 mg Duloxetine HCl (Duloxetine 30 Mg Cap) 30 mg PO DAILY [facility] Last Admin: 11/19/21 12:46 Dose: 30 mg Hydralazine HCl (Hydralazine 25 Mg Tab) 25 mg PO TID [facility] Last Admin: 11/20/21 08:09 Dose: 25 mg Ceftriaxone Sodium (Rocephin/Ns 2 Gm/100 Ml) 2 gm in 100 mls @ 200 mls/hr IV Q24HR [facility]; Protocol Last Admin: 11/19/21 12:50 Dose: 200 mls/hr Melatonin (Melatonin 5 Mg Tab) 10 mg PO QHS PRN PRN Reason: Insomnia Methylprednisolone Sodium Succinate (Methylprednisolone Sod Succinate 125 Mg/2 Ml Inj) 80 mg IV Q8HR [facility] Last Admin: 11/20/21 05:07 Dose: 80 mg Metoclopramide HCl (Metoclopramide 10 Mg/2 Ml Inj) 10 mg IV Q6H PRN PRN Reason: Nausea And Vomiting Miscellaneous Medication (Glecaprevir/Pibrentasvir(Nf)) 1 each PO BID [facility] Morphine Sulfate (Morphine 2 Mg/1 Ml Inj) 2 mg IV Q4H PRN PRN Reason: Pain, Moderate (4-6) Last Admin: 11/20/21 03:27 Dose: 2 mg Ondansetron HCl (Ondansetron 4 Mg/2 Ml Inj) 4 mg IV Q3H PRN PRN Reason: Nausea And Vomiting Oxycodone/Acetaminophen (Oxycodone /Acetaminophen 5-325mg Tab) 1 tab PO Q6H PRN PRN Reason: Pain, Moderate (4-6) Last Admin: 11/20/21 06:26 Dose: 1 tab Pantoprazole Sodium (Pantoprazole 40 Mg Tab) 40 mg PO DAILY [facility] Last Admin: 11/19/21 12:46 Dose: 40 mg Sodium Chloride (Sodium Chloride 0.9% 10 Ml Flush Syringe) 10 ml IV BID [facility] Last Admin: 11/19/21 22:59 Dose: 10 ml Sodium Chloride (Sodium Chloride 0.9% 10 Ml Flush Syringe) 10 ml IV PRN PRN PRN Reason: LINE FLUSH Review of Systems Constitutional: no weight loss, no weight gain, no fever, no chills Cardiovascular: chest pain, shortness of breath Respiratory: cough, cough with sputum, shortness of breath Gastrointestinal: no abdominal pain, no nausea, no vomiting, no diarrhea Neurological: no paralysis, no weakness, no parathesias, no seizures, no syncope Allergic/Immunologic: wheezing, no urticaria, no allergic rhinitis, no persistent infections Physical Examination Vital signs: Vital Signs Temp Pulse BP Pulse Ox 98.3 F 137 H 159/89 100 11/18/21 13:01 11/18/21 13:01 11/18/21 13:01 11/18/21 13:01 General appearance: alert, other (in mild resp distress) Eyes: non-icteric ENT: oropharynx moist Neck: supple, no lymphadenopathy, no JVD Effort: mildly labored Ascultation: Bilateral: diminished breath sounds, wheezes Cardiovascular: regular rate and rhythm, other (S1,S2) Gastrointestinal: normoactive bowel sounds, non-tender Integumentary: normal Extremities: no cyanosis, no edema, pink and warm, pulses normal normal mental status, non-focal exam, pupils equal and round, CN II-XII normal, motor strength normal and mood appropriate, affect normal Results - Laboratory Findings CBC and BMP: 11/21/21 04:18 11/21/21 04:18 ABG ABG pH 7.360 pH Units (7.350-7.450) 11/18/21 16:56 ABG pCO2 35.2 mm Hg 11/18/21 16:56 ABG pO2 135.9 mm Hg (80.0-90.0) H 11/18/21 16:56 ABG O2 Saturation 98.6 % (95.0-99.0) 11/18/21 16:56 PT/INR, D-dimer D-Dimer 530.28 ng/mlDDU (0-234) H 11/19/21 07:47 Abnormal lab findings: Abnormal Labs 11/18/21 11/18/21 11/18/21 13:08 13:08 13:08 WBC 14.2 H RBC 5.43 H Hgb 16.0 H Hct 49.4 H Lymph % (Auto) 7.3 L [place] % (Auto) 7.9 H Lymph # (Auto) 1.0 L [place] # (Auto) 1.1 H Seg Neutrophils % 84.0 H Seg Neuts % (Manual) Lymphocytes % (Manual) Seg Neutrophils # 11.9 H Seg Neutrophils # Man Lymphocytes # (Manual) Monocytes # (Manual) D-Dimer ABG pO2 ABG HCO3 ABG Base Excess Sodium 133 L Chloride 95.3 L Carbon Dioxide 19 L BUN Creatinine Glucose 142 H POC Glucose Total Bilirubin 1.60 H NT-Pro-B Natriuret Pep 1139 H 11/18/21 11/19/21 11/19/21 16:56 06:31 06:31 WBC 14.5 H RBC Hgb Hct Lymph % (Auto) [place] % (Auto) Lymph # (Auto) [place] # (Auto) Seg Neutrophils % Seg Neuts % (Manual) 89.0 H Lymphocytes % (Manual) 5.0 L Seg Neutrophils # Seg Neutrophils # Man 12.9 H Lymphocytes # (Manual) 0.7 L Monocytes # (Manual) 0.9 H D-Dimer ABG pO2 135.9 H ABG HCO3 19.5 L ABG Base Excess -5.1 L Sodium 135 L Chloride Carbon Dioxide BUN 23 H Creatinine 1.4 H D Glucose 165 H POC Glucose Total Bilirubin NT-Pro-B Natriuret Pep 11/19/21 11/19/21 11/19/21 07:45 07:47 11:56 WBC RBC Hgb Hct Lymph % (Auto) [place] % (Auto) Lymph # (Auto) [place] # (Auto) Seg Neutrophils % Seg Neuts % (Manual) Lymphocytes % (Manual) Seg Neutrophils # Seg Neutrophils # Man Lymphocytes # (Manual) Monocytes # (Manual) D-Dimer 530.28 H ABG pO2 ABG HCO3 ABG Base Excess Sodium Chloride Carbon Dioxide BUN Creatinine Glucose POC Glucose 187 H 224 H Total Bilirubin NT-Pro-B Natriuret Pep 11/19/21 11/19/21 11/20/21 15:59 22:38 05:25 WBC 17.6 H RBC Hgb Hct Lymph % (Auto) [place] % (Auto) Lymph # (Auto) [place] # (Auto) Seg Neutrophils % Seg Neuts % (Manual) 95.0 H Lymphocytes % (Manual) 1.0 L Seg Neutrophils # Seg Neutrophils # Man 16.7 H Lymphocytes # (Manual) 0.2 L Monocytes # (Manual) D-Dimer ABG pO2 ABG HCO3 ABG Base Excess Sodium Chloride Carbon Dioxide BUN Creatinine Glucose POC Glucose 165 H 232 H Total Bilirubin NT-Pro-B Natriuret Pep 11/20/21 05:25 WBC RBC Hgb Hct Lymph % (Auto) [place] % (Auto) Lymph # (Auto) [place] # (Auto) Seg Neutrophils % Seg Neuts % (Manual) Lymphocytes % (Manual) Seg Neutrophils # Seg Neutrophils # Man Lymphocytes # (Manual) Monocytes # (Manual) D-Dimer ABG pO2 ABG HCO3 ABG Base Excess Sodium 131 L Chloride 97.2 L Carbon Dioxide 21 L BUN 34 H Creatinine Glucose 171 H POC Glucose Total Bilirubin NT-Pro-B Natriuret Pep - Diagnostic Findings Chest x-ray: image reviewed Assessment and Plan Acute and chronic Hypoxic Respiratory Failure 2/2 Acute COPD Exacerbation Tobacco use disorder/Nicotine dependence Hypertension Type 2 Diabetes Mellitus h/o Pulmonary embolus Leukocytosis -Continue with supplemental oxygen; titrate to keep SpO2 88-90% -BIPAP qhs and PRN -CXR, ABG as clinically indicated -DOC/JOSEPHINE scheduled q4hr for the next 24 hours -Steroids -VTE prophylaxis- continue with home therapeutic anticoagulation -Stress ulcer prophylaxis in the setting of acute and chronic hypoxemic resp failure and high dose steroids -Influenza and pneumococcal vaccination per protocol -In the setting of severe AE-COPD, treat with empiric antibiotics -Get transthoracic echocardiogram to evaluate EF and for pulmonary hypertension - Continue blood pressure monitor per protocol; Maintain SBP less than 160 - Continue accucheck and SSI ACHS. Target blood glucose 140-180 mg/dL; Avoid hypoglycemia - While critically ill target blood glucose of 140-180 - Smoking Cessation education provided. Patient verbalized understanding of the info provided and agreed with current care plan - Nicotine withdrawal precautions CONDITION: FAIR PROGNOSIS: FAIR CODE STATUS: FULL Discussed care plan with respiratory and nursing care services
[2021-11-20] MEDS: APIXABAN 5 MG TAB PO SCH ×2 (09:34→22:00)
[2021-11-20] MEDS: CETIRIZINE 10 MG TAB PO SCH (09:34)
[2021-11-20] MEDS: cefTRIAXone/NS 2 GM/100 ML 2 GM/100 ML BAG IV SCH (09:34)
[2021-11-20] MEDS: PANTOPRAZOLE 40 MG TAB PO SCH (09:35)
[2021-11-20] MEDS: amLODIPine 5 MG TAB PO SCH (09:35)
[2021-11-20] MEDS: DULoxetine 30 MG CAP PO SCH (09:35)
[2021-11-20] MEDS: AZITHROMYCIN 250 MG TAB PO SCH (09:35)
[2021-11-20] MEDS ORDERED: oxyCODONE /ACETAMINOPHEN 5-325MG TAB PO ONE (10:08)
[2021-11-20] MEDS: DICLOFENAC DR 75 MG TAB PO SCH ×2 (10:52→21:58)
[2021-11-20] MEDS: busPIRone 10 MG TAB PO SCH ×2 (10:52→21:57)
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
[2021-11-20 23:17] VITALS: BP 133/71
[2021-11-21] MEDS: methylPREDNISolone Sod Succinate 125 MG/2 ML INJ IV SCH (05:57)
[2021-11-21 06:29] LABS: BUN/Creatinine Ratio 28; Blood Urea Nitrogen 28 mg/dL (7-17); Calcium 8.9 mg/dL (8.4-10.2); Hemolysis Index 4
[2021-11-21 06:33] LABS: Hematocrit 40.4 % (30.3-42.9); Hemoglobin 13.2 gm/dl (10.1-14.3); Mean Corpuscular HGB Conc 33 % (30-34); Mean Corpuscular Volume 92 fl (79-97); Platelet Count 191 K/mm3 (140-440); Red Blood Count 4.39 M/mm3 (3.65-5.03); Red Cell Distribution Width 13.9 % (13.2-15.2)
[2021-11-21] MEDS: hydrALAZINE 25 MG TAB PO SCH (07:26)
[2021-11-21] MEDS: oxyCODONE /ACETAMINOPHEN 5-325MG TAB PO PRN (07:26)
[2021-11-21] MEDS: BUDESONIDE 0.5 MG/2 ML NEBU IH SCH (08:07)
[2021-11-21] MEDS: ARFORMOTEROL 15 MCG/2 ML NEBU IH SCH (08:07)
[2021-11-21] MEDS: IPRATROPIUM/ALBUTEROL SULFATE 3 ML AMPUL.NEB IH SCH (08:07)
--- NOTE | 2021-11-21 09:32 | Electrocardiograph Report ---
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1955 Requested By: ALMA ZUÑIGA Order Number: [id number] Reading MD: Amol Araya Measurements Intervals [place] Rate: 136 P: 76 NV: 145 QRS: -87 QRSD: 80 T: 96 QT: 290 QTc: 437 Interpretive Statements Sinus tachycardia Ventricular premature complex LAE, consider biatrial enlargement Left anterior fascicular block irbbb Nonspecific T abnormalities, lateral leads Compared to ECG 08/04/2021 14:47:19 PVC'S now present Left anterior fascicular block now present T-wave abnormality now present ST (T wave) deviation now present Sinus rhythm no longer present Electronically Signed On 11-21-2021 9:31:54 EDT by Amol Araya
[2021-11-21] MEDS: CETIRIZINE 10 MG TAB PO SCH (10:17)
[2021-11-21] MEDS: busPIRone 10 MG TAB PO SCH (10:17)
[2021-11-21] MEDS: APIXABAN 5 MG TAB PO SCH (10:17)
[2021-11-21] MEDS: DICLOFENAC DR 75 MG TAB PO SCH (10:17)
[2021-11-21] MEDS: PANTOPRAZOLE 40 MG TAB PO SCH (10:17)
[2021-11-21] MEDS: AZITHROMYCIN 250 MG TAB PO SCH (10:17)
[2021-11-21] MEDS: DULoxetine 30 MG CAP PO SCH (10:17)
[2021-11-21] MEDS: amLODIPine 5 MG TAB PO SCH (10:17)
[2021-11-21] MEDS: cefTRIAXone/NS 2 GM/100 ML 2 GM/100 ML BAG IV SCH (10:18)
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
[2021-11-21] MEDS ORDERED: IPRATROPIUM/ALBUTEROL SULFATE 3 ML AMPUL.NEB IH SCH ×2 (14:00)
--- NOTE | 2021-11-22 17:13 | Electrocardiograph Report ---
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
== END 2021-11-21 12:12 | disposition home or self-care (01) | DRG 189 ==
LOC: ED 12:46 → 3A 21:26
PROVIDERS: ADMIT Internal Medicine; ATTEND Student in an Organized Health Care Education/Training Program
PROC: 5A09457 Assistance with Respiratory Ventilation, 24-96 Consecutive Hours, Continuous Positive Airway Pressure (ICD-10-PCS; 2021-11-18)
PROC: 5A09357 Assistance with Respiratory Ventilation, Less than 24 Consecutive Hours, Continuous Positive Airway Pressure (ICD-10-PCS; principal; 2021-11-21)
DX: J96.21 Acute and chronic respiratory failure with hypoxia (principal); R65.11 Systemic inflammatory response syndrome (SIRS) of non-infectious origin with acute organ dysfunction; N17.0 Acute kidney failure with tubular necrosis; J44.1 Chronic obstructive pulmonary disease with (acute) exacerbation; I50.30 Unspecified diastolic (congestive) heart failure; Z20.822 Contact with and (suspected) exposure to COVID-19; I11.0 Hypertensive heart disease with heart failure; E11.65 Type 2 diabetes mellitus with hyperglycemia; D75.1 Secondary polycythemia; K21.9 Gastro-esophageal reflux disease without esophagitis; G47.00 Insomnia, unspecified; Z71.6 Tobacco abuse counseling; Z87.891 Personal history of nicotine dependence; Z79.899 Other long term (current) drug therapy; Z88.6 Allergy status to analgesic agent; Z88.5 Allergy status to narcotic agent; Z86.718 Personal history of other venous thrombosis and embolism; Z88.8 Allergy status to other drugs, medicaments and biological substances; Z86.711 Personal history of pulmonary embolism; Z79.4 Long term (current) use of insulin; M19.90 Unspecified osteoarthritis, unspecified site; Z82.49 Family history of ischemic heart disease and other diseases of the circulatory system
CPT/HCPCS: 36415; 71045; 80048; 80053; 82803; 82962; 83880; 84484; 85007; 85025; 85027; 85379; 93005; 93306; 94640; 94660; 94760; 96365; 96367; 96375; 99285; G0378; C8929; J0456; J0696; J1200; J1940; J2270; J2405; J2930; J3010; J3475; J7030; J7120; U0003